=== PATIENT | male | born 1980 | race Caucasian/White ===

== ENCOUNTER → 2016-12-31 | Outpatient (CLI) | payer BC ==
[2016-12-31 14:06] LABS: BLOOD UREA NITROGEN 24 MG/DL (7-18); CREATININE FOR GFR 1.06 MG/DL (0.70-1.30); GLOMERULAR FILTRATION RATE > 60.0 (>60)
== END ==
LOC: M LAB 12:58
PROVIDERS: ATTEND Neurological Surgery
DX: Z01.818 Encounter for other preprocedural examination (principal)

== ENCOUNTER 2018-06-15 07:48 | Emergency (ER) | payer BC, OTHER ==
[2018-06-15 08:34] LABS: BASO % 0.6 % (0.0-1.0); EOS # 0.2 10^3/uL (0.0-0.50); HEMATOCRIT 46.5 % (42.0-52.0); IMMATURE GRANULOCYTE % 0.2 % (0-3.0); LYMPH # 1.5 10^3/uL (1.5-4.5); LYMPH % 28.1 % (24.0-44.0); MEAN CORPUSCULAR HEMOGLOBIN 29.7 pg (27.0-33.0); MEAN CORPUSCULAR HGB CONC 34.4 g/dl (32.0-36.5); MEAN CORPUSCULAR VOLUME 86.4 fl (80.0-96.0); MONO # 0.3 10^3/uL (0.0-0.8); MONO % 5.3 % (0.0-5.0); NEUTROPHILS # 3.3 10^3/uL (1.8-7.7); NEUTROPHILS % 62.8 % (36.0-66.0); PLATELET COUNT, AUTOMATED 189 10^3/uL (150-450); RED BLOOD COUNT 5.38 10^6/uL (4.30-6.10); RED CELL DISTRIBUTION WIDTH 11.7 % (11.5-14.5); WHITE BLOOD COUNT 5.3 10^3/uL (4.0-10.0)
[2018-06-15 08:47] LABS: INR 0.98; PARTIAL THROMBOPLASTIN TIME 24.6 SECONDS (25.4-37.6); PROTHROMBIN TIME 13.1 SECONDS (12.1-14.4)
[2018-06-15] MEDS: NS 1,000 ML IV (08:58)
[2018-06-15] MEDS: MORPHINE 4 MG/ML 1ML VIAL/SYRINGE (J2270) IV (08:59)
[2018-06-15] MEDS: ONDANSETRON 4MG/2ML VIAL (J2405) IV (08:59)
[2018-06-15 09:26] LABS: ALBUMIN 3.8 GM/DL (3.2-5.2); ALBUMIN/GLOBULIN RATIO 1.09 (1.00-1.93); ALKALINE PHOSPHATASE 78 U/L (45-117); ALT/SGPT 35 U/L (12-78); ANION GAP 7 MEQ/L (8-16); AST/SGOT 18 U/L (7-37); BILIRUBIN,DIRECT 0.1 MG/DL (0.0-0.2); BILIRUBIN,TOTAL 0.5 MG/DL (0.2-1.0); BLOOD UREA NITROGEN 25 MG/DL (7-18); CARBON DIOXIDE LEVEL 28 MEQ/L (21-32); CHLORIDE LEVEL 107 MEQ/L (98-107); CPK CREATINE PHOSPHOKINASE 79 U/L (39-308); CREATININE FOR GFR 1.01 MG/DL (0.70-1.30); FREE T4 1.29 NG/DL (0.76-1.46); GLOMERULAR FILTRATION RATE > 60.0 (>60); GLUCOSE, FASTING 95 MG/DL (70-100); LIPASE 166 U/L (73-393); MB/CK RELATIVE INDEX 1.52 (< OR =4); NT-PRO BNP 194 PG/ML (<125); POTASSIUM SERUM 4.3 MEQ/L (3.5-5.1); SODIUM LEVEL 142 MEQ/L (136-145); TOTAL PROTEIN 7.3 GM/DL (6.4-8.2); TROPONIN I < 0.02 NG/ML (< 0.10)
[2018-06-15] MEDS ORDERED: ISOVUE-370 76% 100ML VIAL (Q9967) As Ordered (09:31)
[2018-06-15 12:59] LABS: CK-MB VALUE MASS < 1.0 NG/ML (<3.6); CPK CREATINE PHOSPHOKINASE 65 U/L (39-308); MB/CK RELATIVE INDEX 1.54 (< OR =4); TROPONIN I < 0.02 NG/ML (< 0.10)
== END 2018-06-15 14:30 | disposition home or self-care (01) ==
LOC: M ED 07:48
DX: R07.9 Chest pain, unspecified (principal); R00.1 Bradycardia, unspecified; I10 Essential (primary) hypertension; M54.2 Cervicalgia; Z72.0 Tobacco use; Z79.899 Other long term (current) drug therapy; Z88.1 Allergy status to other antibiotic agents; Z88.0 Allergy status to penicillin
CPT/HCPCS: J2270

== ENCOUNTER 2018-07-10 07:26 | Emergency (ER) | payer BC ==
[2018-07-10 09:02] LABS: HEMOGLOBIN 17.4 g/dl (13.5-17.5); MEAN CORPUSCULAR HEMOGLOBIN 29.8 pg (27.0-33.0); MEAN CORPUSCULAR HGB CONC 34.8 g/dl (32.0-36.5); MEAN CORPUSCULAR VOLUME 85.6 fl (80.0-96.0); PLATELET COUNT, AUTOMATED 216 10^3/uL (150-450); RED BLOOD COUNT 5.84 10^6/uL (4.30-6.10); RED CELL DISTRIBUTION WIDTH 11.8 % (11.5-14.5); WHITE BLOOD COUNT 6.5 10^3/uL (4.0-10.0)
[2018-07-10] MEDS: METHOCARBAMOL 500 MG TAB PO (09:32)
[2018-07-10 09:33] LABS: ANION GAP 9 MEQ/L (8-16); BLOOD UREA NITROGEN 16 MG/DL (7-18); CALCIUM LEVEL 8.6 MG/DL (8.5-10.1); CARBON DIOXIDE LEVEL 27 MEQ/L (21-32); CHLORIDE LEVEL 103 MEQ/L (98-107); CREATININE FOR GFR 1.08 MG/DL (0.70-1.30); GLOMERULAR FILTRATION RATE > 60.0 (>60); GLUCOSE, FASTING 92 MG/DL (70-100); POTASSIUM SERUM 4.3 MEQ/L (3.5-5.1); SODIUM LEVEL 139 MEQ/L (136-145)
[2018-07-10 09:48] LABS: D-DIMER QUANT < 270 ng/ml (<500)
== END 2018-07-10 11:06 | disposition home or self-care (01) ==
LOC: M ED 07:26
DX: M16.12 Unilateral primary osteoarthritis, left hip (principal); M25.552 Pain in left hip; M51.36 Other intervertebral disc degeneration, lumbar region; R50.9 Fever, unspecified; I10 Essential (primary) hypertension; M50.30 Other cervical disc degeneration, unspecified cervical region; E78.5 Hyperlipidemia, unspecified; Z87.828 Personal history of other (healed) physical injury and trauma; Z88.0 Allergy status to penicillin; Z88.1 Allergy status to other antibiotic agents; Z79.899 Other long term (current) drug therapy
CPT/HCPCS: 93971

== ENCOUNTER → 2018-09-13 | Outpatient (CLI) | payer BC ==
[~2018-09-13] MED LIST: DICL1GEL TD; DICL75TA; ESCI10TA2; KLOR1CAP2; LISI10TA2; LISIPOW; OMEP20CA3; ROBA500T PO
--- NOTE | 2018-09-22 14:35 | REP ---
Clinical: Trauma. Right-sided contusion. Technique: Frontal view of the chest with multiple views of the right hemithorax. Findings: Frontal view of the chest demonstrates no acute cardiopulmonary process. Multiple views of the right hemithorax demonstrates a nondisplaced fracture involving the posterior aspect of the right ninth rib. Impression: Nondisplaced fracture involving the posterior aspect of the right ninth rib. Electronically Signed by Rivas العلي MD 09/14/2018 09:22 A
== END ==
LOC: M ADAMS 14:00
PROVIDERS: ATTEND Physician Assistant Medical
DX: S22.31XA Fracture of one rib, right side, initial encounter for closed fracture (principal); Y92.89 Other specified places as the place of occurrence of the external cause; Y93.89 Activity, other specified; Y99.8 Other external cause status; W19.XXXA Unspecified fall, initial encounter

== ENCOUNTER → 2018-09-22 | Outpatient (CLI) | payer BC | LOC: M ADAMS 09-13 14:14 | PROVIDERS: ATTEND Physician Assistant Medical | DX: S20.221A Contusion of right back wall of thorax, initial encounter (principal); W18.30XA Fall on same level, unspecified, initial encounter; Y92.009 Unspecified place in unspecified non-institutional (private) residence as the place of occurrence of the external cause ==

== ENCOUNTER → 2019-05-27 | Outpatient (CLI) | payer BC ==
[~2019-05-27] MED LIST changes: +LISI10TA15; -LISI10TA2; -OMEP20CA3; +OMEP20CA4
--- NOTE | 2019-05-27 10:29 | REP ---
Left foot series: Four views. History: Pain in the left foot. Findings: Overall mineralization pattern is normal. Joint spaces are preserved. There is no evidence of fracture, erosive change or arthropathy. Impression: Negative radiographs of the left foot. Electronically Signed by Cole Vergara MD 05/27/2019 10:20 A
== END ==
LOC: M ADAMS 08:40
PROVIDERS: ATTEND Physician Assistant
DX: M79.672 Pain in left foot (principal)

== ENCOUNTER → 2020-06-08 | Outpatient (REF) | payer BC ==
[~2020-06-08] MED LIST changes: +OMEP1CAP73; -OMEP20CA4
[2020-06-08 17:26] LABS: C REACTIVE PROTEIN QUANTITATIV < 0.30 MG/DL (0.00-0.30); RHEUMATOID FACTOR QUANT < 10.0 IU/ML (<15.0)
[2020-06-14 14:08] LABS: ANA (HEP2) Negative (.); ANTI DS-DNA AB Negative (Negative); CYCLIC CITRULLINATED PEPTIDE 7 units (0-19); HLA-B27 Negative (.); RNP ANTIBODY 0.2 AI (0.0-0.9); SMITHS ANTIBODY < 0.2 AI (0.0-0.9)
== END ==
LOC: M PLALAB 16:30 → M LAB REF 16:30
PROVIDERS: ATTEND Physician Assistant
DX: M51.16 Intervertebral disc disorders with radiculopathy, lumbar region (principal)

== ENCOUNTER 2020-08-07 07:53 | Emergency (ER) | payer BC ==
[~2020-08-07] VITALS: Ht 182.9 cm; Wt 100.0 kg
[2020-08-07] MEDS ORDERED: LISI20TA35 PO (08:12)
[2020-08-07] MEDS ORDERED: KLOR20TA42 PO (08:12)
[2020-08-07] MEDS ORDERED: MORPHINE 4 MG/ML 1ML VIAL/SYRINGE (J2270) IV ONE (08:30)
[2020-08-07] MEDS ORDERED: NS 1,000 ML IV ONE (08:30)
[2020-08-07 09:03] LABS: BASO % 0.3 % (0.0-1.0); EOS # 0.2 10^3/uL (0.0-0.5); EOS % 3.2 % (0.0-3.0); HEMATOCRIT 47.5 % (42.0-52.0); HEMOGLOBIN 15.4 g/dl (13.5-17.5); LYMPH # 1.4 10^3/uL (1.5-5.0); LYMPH % 18.8 % (24.0-44.0); MEAN CORPUSCULAR HEMOGLOBIN 28.9 pg (27.0-33.0); MEAN CORPUSCULAR HGB CONC 32.4 g/dl (32.0-36.5); MEAN CORPUSCULAR VOLUME 89.3 fl (80.0-96.0); MONO # 0.4 10^3/uL (0.0-0.8); MONO % 4.9 % (0.0-5.0); NEUTROPHILS # 5.5 10^3/uL (1.5-8.5); NEUTROPHILS % 72.5 % (36.0-66.0); PLATELET COUNT, AUTOMATED 216 10^3/uL (150-450); RED BLOOD COUNT 5.32 10^6/uL (4.30-6.10); WHITE BLOOD COUNT 7.6 10^3/uL (4.0-10.0)
[2020-08-07 09:38] LABS: ALBUMIN 3.7 GM/DL (3.2-5.2); ALT/SGPT 28 U/L (12-78); BILIRUBIN,DIRECT 0.1 MG/DL (0.0-0.2); BILIRUBIN,TOTAL 0.4 MG/DL (0.2-1.0); BLOOD UREA NITROGEN 19 MG/DL (7-18); CALCIUM LEVEL 9.1 MG/DL (8.5-10.1); CARBON DIOXIDE LEVEL 29 MEQ/L (21-32); CHLORIDE LEVEL 103 MEQ/L (98-107); CREATININE FOR GFR 1.06 MG/DL (0.70-1.30); GLOMERULAR FILTRATION RATE > 60.0 (>60); GLUCOSE, FASTING 101 MG/DL (70-100); LIPASE 378 U/L (73-393); POTASSIUM SERUM 4.7 MEQ/L (3.5-5.1); SODIUM LEVEL 138 MEQ/L (136-145); TOTAL PROTEIN 7.3 GM/DL (6.4-8.2)
[2020-08-07] MEDS ORDERED: ISOVUE-370 76% 100ML VIAL As Ordered ONE (09:45)
--- NOTE | 2020-08-07 10:14 | REP ---
INDICATION: RLQ, LLQ left flank pain x 1 week LLQ>R. COMPARISON: 09/11/2017 TECHNIQUE: Axial contrast-enhanced images from the lung bases to the pubic symphysis using 100 cc Isovue 370 intravenous contrast material. Coronal and sagittal reformations obtained. This CT examination was performed using the following dose reduction techniques: Automated exposure control, adjustment of mA and/or kv according to the patient's size, and the use of iterative reconstruction technique. FINDINGS: Lung bases are clear. Visualized heart and pericardium normal. Liver, spleen, pancreas, gallbladder, bilateral adrenal glands and kidneys are normal. The small bowel demonstrates mild prominence which may reflect an underlying enteritis. There is no evidence for bowel obstruction. Large bowel demonstrates scattered diverticula without evidence for acute diverticulitis. Normal terminal ileum, cecum and appendix are identified in the right lower quadrant. Pelvis demonstrates normal bladder and age-appropriate prostate/seminal vesicles. Small fat containing bilateral inguinal hernias are identified. No pelvic free fluid. No ascites. No free air. No intraperitoneal or retroperitoneal adenopathy. Abdominal aorta and vasculature appear normal. Musculoskeletal structures are intact and without acute osseous abnormality. IMPRESSION: 1. A mild enteritis cannot be excluded and should be correlated with physical examination. There is no associated bowel obstruction and large bowel as well as the cecum, terminal ileum and appendix appear normal.. 2. Few scattered colonic diverticula without acute diverticulitis. 3. Small fat containing inguinal hernias.. <Electronically signed by Rivas العلي > 08/07/20 [id number]
[2020-08-07 11:05] VITALS: BP 133/83
== END 2020-08-07 11:19 | disposition home or self-care (01) ==
LOC: M ED 07:53
DX: A08.4 Viral intestinal infection, unspecified (principal); I10 Essential (primary) hypertension; Z79.899 Other long term (current) drug therapy; Z88.0 Allergy status to penicillin; Z88.1 Allergy status to other antibiotic agents
CPT/HCPCS: 36415; 74177; 80048; 80076; 81001; 83690; 85025; 96361; 96374; 99284; Q9967

== ENCOUNTER 2020-10-05 13:28 | Emergency (ER) | payer BC ==
[~2020-10-05] VITALS: Ht 182.9 cm; Wt 105.7 kg
[~2020-10-05 13:28] MED LIST changes: +ESCI10TA16; -ESCI10TA2; +KLOR20TA42 PO; +LISI20TA35 PO
[2020-10-05 13:29] VITALS: BP 125/84
--- NOTE | 2020-10-05 14:39 | REP ---
INDICATION: r arm numbness; pt reports unable to move arm. COMPARISON: None. TECHNIQUE: Helical scanning is acquired and overlapping 2 mm high resolution axial images were generated and reviewed at bone and soft tissue window settings. Coronal and sagittal multiplanar re-formations images are generated. FINDINGS: There is no evidence of cervical spine element fracture. No skull base fracture is seen. Cervical vertebral body heights are preserved. Alignment is normal. Facet joints are normally aligned bilaterally at each cervical level on multiplanar re-formations images. There is no evidence of intraspinal or paraspinal hematoma. No extra vertebral abnormality is seen. There is degenerative narrowing and anterior spurring at the C5-6 disc level. Minimal spurring is seen anteriorly at C3-4. There is straightening. There is mild diffuse disc bulging at the C5-6-disc level but no spinal stenosis is seen. No bony neural foraminal narrowing is appreciated. IMPRESSION: Mild degenerative disc changes at C5-6 and to a lesser extent C3-4. Mild disc bulging diffusely C5-6. Otherwise negative.. <Electronically signed by Erlin Vergara > 10/05/20 [id number]
[2020-10-05] MEDS ORDERED: MEDR4PAK PO (15:35)
--- OUTSIDE RECORDS SUMMARY | 2020-10-05 15:48 | CCD ---
Author Author [facility] Organization [facility] Address Unknown Phone Unavailable Care Team Providers Care Route Delivery Service Driver Name Role Phone CLYDE NAN Unavailable Unavailable EsvinAntonio pedro PA Unavailable Unavailable EsvinAntonio pedro PA Unavailable Unavailable EsvinBharat pedroen PA Unavailable Unavailable Esvin, Antonio PA Unavailable Unavailable Esvin, Antonio PA Unavailable Unavailable Esvin, Antonio PA Unavailable Unavailable Esvin, Antonio PA Unavailable Unavailable Esvin, Antonio PA Unavailable Unavailable Esvin, Antonio PA Unavailable Unavailable Esvin, Antonio PA Unavailable Unavailable Esvin, Antonio PA Unavailable Unavailable Esvin, Antonio PA Unavailable Unavailable Esvin, Antonio PA Unavailable Unavailable Esvin, Antonio PA Unavailable Unavailable Esvin, Antonio PA Unavailable Unavailable Esvin, Antonio PA Unavailable Unavailable Esvin, Antonio PA Unavailable Unavailable Esvin, Antonio PA Unavailable Unavailable Esvin, Antonio PA Unavailable Unavailable Esvin, Antonio PA Unavailable Unavailable Esvin, Antonio PA Unavailable Unavailable Esvin, Antonio PA Unavailable Unavailable Esvin, Antonio PA Unavailable Unavailable Esvin, Antonio PA Unavailable Unavailable Esvin, Antonio PA Unavailable Unavailable Esvin, Antonio PA Unavailable Unavailable Esvin, Antonio PA Unavailable Unavailable Esvin, Antonio PA Unavailable Unavailable Esvin, Antonio PA Unavailable Unavailable Esvin, Antonio PA Unavailable Unavailable Esvin, Antonio PA Unavailable Unavailable Esvin, Antonio PA Unavailable Unavailable Esvin, Antonio PA Unavailable Unavailable Esvin, Antonio PA Unavailable Unavailable Esvin, Antonio PA Unavailable Unavailable Esvin, Antonio PA Unavailable Unavailable Esvin, Antonio PA Unavailable Unavailable Esvin, Antonio PA Unavailable Unavailable Esvin, Antonio PA Unavailable Unavailable Esvin, Antonio PA Unavailable Unavailable Esvin, Antonio PA Unavailable Unavailable Esvin, Antonio PA Unavailable Unavailable Esvin, Antonio PA Unavailable Unavailable Esvin, Antonio PA Unavailable Unavailable Esvin, Antonio PA Unavailable Unavailable Esvin, Antonio PA Unavailable Unavailable Esvin, Antonio PA Unavailable Unavailable Esvin, Antonio PA Unavailable Unavailable Esvin, Antonio PA Unavailable Unavailable O'vashti, A Reynaldo PA Unavailable Unavailable O'vashti, A Reynaldo PA Unavailable Unavailable O'vashti, A Reynaldo PA Unavailable Unavailable O'vashti, A Reynaldo PA Unavailable Unavailable O'vashti, A Reynaldo PA Unavailable Unavailable O'vashti, A Reynaldo PA Unavailable Unavailable O'vashti, A Reynaldo PA Unavailable Unavailable O'vashti, A Reynaldo PA Unavailable Unavailable O'vashti, A Reynaldo PA Unavailable Unavailable O'vashti, A Reynaldo PA Unavailable Unavailable O'vashti, A Reynaldo PA Unavailable Unavailable O'vashti, A Reynaldo PA Unavailable Unavailable O'vashti, A Reynaldo PA Unavailable Unavailable O'vashti, A Reynaldo PA Unavailable Unavailable O'vashti, A Reynaldo PA Unavailable Unavailable O'vashti, A Reynaldo PA Unavailable Unavailable O'vashti, A Reynaldo PA Unavailable Unavailable O'vashti, A Reynaldo PA Unavailable Unavailable O'vashti, A Reynaldo PA Unavailable Unavailable O'vashti, A Reynaldo PA Unavailable Unavailable O'vashti, A Reynaldo PA Unavailable Unavailable O'vashti, A Reynaldo PA Unavailable Unavailable O'vashti, A Reynaldo PA Unavailable Unavailable O'vashti, A Reynaldo PA Unavailable Unavailable O'vashti, A Reynaldo PA Unavailable Unavailable O'vashti, A Reynaldo PA Unavailable Unavailable O'vashti, A Reynaldo PA Unavailable Unavailable O'vashti, A Reynaldo PA Unavailable Unavailable O'vashti, A Reynaldo PA Unavailable Unavailable O'vashti, A Reynaldo PA Unavailable Unavailable O'vashti, A Reynaldo PA Unavailable Unavailable O'vashti, A Reynaldo PA Unavailable Unavailable O'vashti, A Reynaldo PA Unavailable Unavailable Re-disclosure Warning The records that you are about to access may contain information from federally-assisted alcohol or drug abuse programs. If such information is present, then the following federally mandated warning applies: This information has been disclosed to you from records protected by federal confidentiality rules (42 CFR part 2). The federal rules prohibit you from making any further disclosure of this information unless further disclosure is expressly permitted by the written consent of the person to whom it pertains or as otherwise permitted by 42 CFR part 2. A general authorization for the release of medical or other information is NOT sufficient for this purpose. The Federal rules restrict any use of the information to criminally investigate or prosecute any alcohol or drug abuse patient.The records that you are about to access may contain highly sensitive health information, the redisclosure of which is protected by Article 27-F of the [facility] Public Health law. If you continue you may have access to information: Regarding HIV / AIDS; Provided by facilities licensed or operated by the [facility] Office of Mental Health; or Provided by the [facility] Office for People With Developmental Disabilities. If such information is present, then the following [facility] mandated warning applies: This information has been disclosed to you from confidential records which are protected by state law. State law prohibits you from making any further disclosure of this information without the specific written consent of the person to whom it pertains, or as otherwise permitted by law. Any unauthorized further disclosure in violation of state law may result in a fine or residential sentence or both. A general authorization for the release of medical or other information is NOT sufficient authorization for further disc losure. Family History Family Member Name Family Member Gender Family Member Status Date o f Status Description Data Source(s) Unknown Unknown Problem [facility] ([facility]) Encounters Encounter Providers Location Date Indications Data Source(s ) Outpatient Attender: Antonio SOTO [facility] 06/08/2020 09:40:00 AM EDT [facility] ([facility]) Outpatient Attender: NAN TANG 05/23/2020 04:34:00 PM E [facility] Outpatient Attender: NAN TANG 05/09/2020 03:53:00 PM E [facility] Outpatient Attender: NAN CLYDE 04/25/2020 04:20:00 PM E [facility] Outpatient Attender: NAN CLYDE 04/13/2020 04:07:00 PM E [facility] Outpatient Attender: NAN CLYDE 04/11/2020 04:00:00 PM E [facility] Outpatient Attender: NAN CLYDE 03/28/2020 04:10:00 PM E [facility] Outpatient Attender: NAN CLYDE 03/07/2020 04:23:00 PM E [facility] Outpatient Attender: NAN CLYDE 02/21/2020 03:00:00 PM E [facility] Outpatient Attender: Reynaldo SOTO [facility] 12/22/2019 10:40:00 AM EDT [facility] ([facility]) Medications Medication Brand Name Start Date Product Form Dose Route Admi nistrative Instructions Pharmacy Instructions Status Indications Reaction Description Data Source(s) 4 mg 06/08/2020 12:00:00 AM EDT tablets,dose pack 21 TAKE DIRECTED TAKE DIRECTED SOLD: 06/08/2020 [facility] Injection Ketorolac Tromethamine Per 15 MG (Toradol) 06/08/2020 12:00:00 AM EDT completed [facility] ([facility]) Medication administered onsite gabapentin 300 MG Oral Capsule Gabapentin 06/08/2020 12:00:00 AM EDT ORAL active [facility] ([facility]) 300 mg 06/08/2020 12:00:00 AM EDT capsule 60 TAKE ONE CAPSULE BY MOUTH THREE TIMES A DAY NEEDED TAKE ONE CAPSULE BY MOUTH THREE TIMES A DAY NEEDED SOLD: 06/08/2020 [facility] Methocarbamol 750 MG Oral Tablet Methocarbamol 06/08/2020 12:00:00 AM EDT ORAL active [facility] ([facility]) Medrol Medrol 06/08/2020 12:00:00 AM EDT active [facility] ([facility]) 750 mg 06/08/2020 12:00:00 AM EDT tablet 30 TAKE ONE TABLET BY MOUTH AT BEDTIME NEEDED TAKE ONE TABLET BY MOUTH AT BEDTIME NEEDED SOLD: [facility] Diclofenac Sodium 75 MG Delayed Release Oral Tablet DICLOFEN AC SODIUM 06/06/2020 12:00:00 AM EDT tablet,delayed release (DR/EC) 90 T BLANCHE ONE TABLET BY MOUTH EVERY DAY NEEDED TAKE ONE TABLET BY MOUTH EVERY DAY NEEDED SOLD: 06/07/2020 [facility] 75 mg 03/25/2020 12:00:00 AM EDT tablet,delayed release (DR/EC) 30 TAKE ONE TABLET BY MOUTH EVERY DAY NEEDED TAKE ONE TABLET BY MOUTH EVERY DAY NE EDED SOLD: 03/26/2020 [facility] Escitalopram 10 MG Oral Tablet ESCITALOPRAM OXALATE 02/09/2020 1 2:00:00 AM EDT tablet 90 TAKE ONE TABLET BY MOUTH EVERY D AY TAKE ONE TABLET BY MOUTH EVERY DAY SOLD: 02/09/2020 [facility] Hydrochlorothiazide 12.5 MG / Lisinopril 20 MG Oral Ta blet Lisinopril-Hydrochlorothiazide 08/24/2019 12:00:00 AM EST active [facility] ([facility]) Insurance Providers Payer name Policy type / Coverage type Policy ID Covered libertarian ID Covered libertarian's relationship to stallworth Policy [place] Plan Information [place] P[place] 302/307 [id number] EXCELLUS BCBS B [id number] P VYS [id number] BCBS [place] [id number] SPO VYS [id number] BCBS/Excellus Commercial [id number] Family Dependent [id number] BCBS/Excellus Commercial [id number] Family Dependent [id number] EXCELLUS H [id number] Spouse [id number] AETNA U [id number] Self [id number] Aetna Medigap Part B [id number] Self [id number] [facility] U/W Commercial [id number] Self [id number] Excell[employer] U/W Commercial [id number] Family Depen dent [id number] [place] PPO 302/307 [id number] SP [id number] AETNA [place] HEALTH[place]ARE [place] [id number] SP [id number] Aetna Medigap Part B [id number] Self [id number] [employer] U/W Commercial [id number] Self [id number] Aetna Medigap Part B [id number] Self [id number] [employer] U/W Commercial [id number] Self [id number] Aetna Commercial [id number] Self [id number] AETNA (HMO/PPO/POS/GPPO - MANAGED CARE [id number] 0 [id number] AETNA US HEALTHCARE [place] O [id number] O [id number] Aetna Medigap Part B [id number] Self [id number] [employer] U/W Commercial [id number] Self [id number] [employer] U/W Commercial [id number] Self [id number] AETNA HEALTHCARE [place] [id number] SP [id number] [place] PPO 302/307 [id number] SP [id number] [employer] U/W Commercial [id number] Self [id number] EXCELLUS BCBS B [id number] S [id number] [employer] U/W Commercial [id number] Self [id number] [employer] U/W Commercial [id number] Self [id number] BCBS [place] PPO 302/307 [id number] SP [id number] Excell[employer] BCBS Health Maintenance Organization (HMO) [id number] Self [id number] [employer] U/W Commercial [id number] Self [id number] [employer] U/W Commercial Self SELF PAY ONLY UNAVAILABLE SP UNAV AILABLE [employer] COMMUNITY PLAN [id number] SP [id number] [facility] O [id number] S [id number] [employer] Commercial Self Workers Compensation Workers Compensation Self SELF PAY UNAVAILABLE SP UNAVAILA BLE BCBS [place] PPO 302/307 [id number] SP [id number] Problems, Conditions, and Diagnoses Code Display Name Description Problem Type Effective Dates Data Source(s) F43.10 Post-traumatic stress disorder, unspecif ied POST-TRAUMATIC STRESS DISORDER, UNSPECIFIED Diagnosis 05/23/2020 04:34:00 PM EDT [facility] Z53.29 Procedure and treatment not carried out because of patient's decision for other reasons PROC/TRTMT NOT CRD OUT BEC PT DECISION FOR OTH REASONS Diagn osis 05/09/2020 03:53:00 PM EDT [facility] Results ID Date Data Source [id number] 06/08/2020 11:10:00 AM EDT [facility] ([facility]) Name Value Range Interpretation Code Description Data Pat rce(s) Supporting Document(s) HLA-B27 related Ag [Presence] Laboratory test result Normal (applies to non- numeric results) [facility]) HLA-B*27 Negative B27 allele interpretation for all loci based on IMGT/HLA database version 3.38 This test was developed and its performance characteristics determined by [facility]. It has not been cleared or approved by the Food and Drug Administration. [facility] CLIA ID Number [id number] . This test was performed using PCR (Polymerase Chain Reaction)/SSOP (Sequence Specific Oligonucleotide Probes) technique. SBT (Sequence Based Typing) and/or SSP (Sequence Specific Primers) may be used as supplemental methods when necessary. Please contact [facility] Customer Service at if you have any questions. . Director of HLA Laboratory Dr Kurt Pichardo, PhD ID Date Data Source [id number] 06/08/2020 11:10:00 AM EDT [facility] ([facility]) Name Value Range Interpretation Code Description Data Pat rce(s) Supporting Document(s) ASTRONOMY TEACHER Antibody 0.2 AI 0.0-0.9 Normal (applies to non-numeric res ults) [facility] ([facility]) Smiths Antibody Laboratory test result 0.0-0.9 Normal (a pplies to non-numeric results) [facility] ([facility]) ID Date Data Source [id number] 06/08/2020 11:10:00 AM EDT [facility] ([facility]) Name Value Range Interpretation Code Description Data Pat rce(s) Supporting Document(s) Kassandra (Hep2) Laboratory test result Normal (applies to non-n umeric results) [facility] ([facility]) <content>Negative <1:80</content>
<content>Borderline 1:80</content>
<content>Positive >1:80</content>
<content>Performed at: [facility]</content>
<content>[address], [place] [id number]</content>
<content>Armature Rewinder: India Yeung MD, Phone: [phone]</content>
<content>Performed at: [address] [place] [address] [facility]</content>
<content>[address], [place] [id number]</content>
<content>Armature Rewinder: Kurt Pichardo PhD, Phone: [phone]</content>
<content>Performed at: [facility]</content>
<content>[address], [place] [id number]</content>
<content>Armature Rewinder: Ana Mahajan MD, Phone: [phone]</content>
<content></content> ID Date Data Source [id number] 06/08/2020 11:10:00 AM EDT [facility] ([facility]) Name Value Range Interpretation Code Description Data Pat rce(s) Supporting Document(s) Laboratory test finding (navigational concept) Laboratory test r esult Normal (applies to non-numeric results) [facility]) ID Date Data Source [id number] 06/08/2020 11:10:00 AM EDT [facility] ([facility]) Name Value Range Interpretation Code Description Data Pat rce(s) Supporting Document(s) Rheumatoid factor [Units/volume] in Serum or Plasma Laboratory t est result Normal (applies to non-numeric results) [facility] ([facility]) Cyclic citrullinated peptide IgG Ab [Units/volume] in Serum or Plasma 7 units 0-19 Normal (applies to non-numeric results) [facility] ([facility]) <content>Negative <20</con tent>
<content>Weak positive 20 - 39</content>
<content>Moderate positive 40 - 59</content>
<content>Strong positive >59</content>
<content></content> C reactive protein [Mass/volume] in Serum or Plasma by High sensitivity method Laboratory test result 0.00-0.30 Normal (applies to non-numeric results) [facility] ([facility]) Erythrocyte sedimentation rate by Westergren method 1 mm/hr 0-15 Normal (applies to non-numeric results) [facility] ([facility]) Procedure Social History Code Duration Value Status Description Data Source(s ) Smoking 08/24/2019 12:00:00 AM EST Quit completed Quit [facility]) Vital Signs ID Date Data Source UNK Name Value Range Interpretation Code Description Data Source(s) [place] body weight 172 [lb_av] 172 [lb_av] [facility] ([facility]) Oxygen saturation in Arterial blood by Pulse oximetry 99 % 99 % [facility] ([facility]) Body temperature 98.8 [degF] 98.8 [degF] [facility] ([facility]) Respiratory rate 18 /min 18 /min [facility] ( [facility]) Heart rate 97 /min 97 /min [facility] ([facility]) Body mass index (BMI) [Ratio] 30.9 kg/m2 30.9 k g/m2 [facility] ([facility]) Body weight 226.38 [lb_av] 226.38 [lb_av] [facility] ([facility]) Body height 71.8 [in_i] 71.8 [in_i] [facility] ([facility]) 5'11.80" Diastolic blood pressure 90 mm[Hg] 90 mm[Hg] [facility] ([facility]) Systolic blood pressure 142 mm[Hg] 142 mm[Hg] [facility] ([facility]) [place] body weight 172 [lb_av] 172 [lb_av] [facility] ([facility]) Oxygen saturation in Arterial blood by Pulse oximetry 99 % 99 % [facility] ([facility]) Body temperature 98.8 [degF] 98.8 [degF] [facility] ([facility]) Respiratory rate 18 /min 18 /min [facility] ( [facility]) Heart rate 88 /min 88 /min [facility] ([facility]) Body mass index (BMI) [Ratio] 31.9 kg/m2 31.9 k g/m2 [facility] ([facility]) Body weight 234.00 [lb_av] 234.00 [lb_av] [facility] ([facility]) Body height 71.8 [in_i] 71.8 [in_i] [facility] ([facility]) 5'.80" Diastolic blood pressure 78 mm[Hg] 78 mm[Hg] [facility] ([facility]) Systolic blood pressure 142 mm[Hg] 142 mm[Hg] [facility] ([facility]) Oxygen saturation in Arterial blood by Pulse oximetry 97 % 97 % [facility] ([facility]) Body temperature 97.4 [degF] 97.4 [degF] [facility] ([facility]) Respiratory rate 16 /min 16 /min [facility] ( [facility]) Heart rate 90 /min 90 /min [facility] ([facility]) Body mass index (BMI) [Ratio] 31.4 kg/m2 31.4 k g/m2 [facility] ([facility]) Body weight 230.00 [lb_av] 230.00 [lb_av] [facility] ([facility]) Body height 71.8 [in_i] 71.8 [in_i] [facility] ([facility]) 5'11.80" Diastolic blood pressure 88 mm[Hg] 88 mm[Hg] [facility] ([facility]) Systolic blood pressure 140 mm[Hg] 140 mm[Hg] [facility] ([facility])
[2020-10-05] MEDS ORDERED: KETOROLAC 30 MG/ML 1ML VIAL IM ONE (16:15)
== END 2020-10-05 16:25 | disposition home or self-care (01) ==
LOC: M ED 13:28
DX: M50.30 Other cervical disc degeneration, unspecified cervical region (principal); M50.20 Other cervical disc displacement, unspecified cervical region; I10 Essential (primary) hypertension; Z79.899 Other long term (current) drug therapy; Z88.0 Allergy status to penicillin; Z88.1 Allergy status to other antibiotic agents
CPT/HCPCS: 72125; 96372; 99282; J1885

== ENCOUNTER → 2020-10-25 | Outpatient (CLI) | payer BC ==
[~2020-10-25] MED LIST changes: +MEDR4PAK PO; +PROHANCE 279.3MG/ML 15ML VIAL As Ordered ONE; +PROHANCE 279.3MG/ML 5ML VIAL As Ordered ONE
--- NOTE | 2020-10-25 16:54 | REP ---
INDICATION: SPONDYLOTHESIA CERVERICAL REGION. Neck pain. COMPARISON: Comparison CT study of the cervical spine is from October 05, 2020.. TECHNIQUE: Sagittal and axial T1 and T2-weighted scans are acquired in the usual fashion with and without fat saturation. Sequences include spin echo, turbo spin-echo, and STIR imaging sequences. 20 mL of intravenous ProHance is administered and axial and coronal post gadolinium enhanced images are acquired. FINDINGS: There is straightening and slight reversal of the normal cervical lordosis. Cervical vertebral body heights are preserved. Alignment is otherwise normal. No extra vertebral abnormality is observed. There is a focal T2 hyperintense lesion in the upper cervical cord just below the spinal medullary junction at the level of the dens. This measures approximately 6 mm in craniocaudal span on T2 weighted scans. No abnormal T1 signal intensity is seen on precontrast images here. However, there is contrast enhancement within the substance of the cord at the level of this lesion on postcontrast images. No other intramedullary cord lesion is appreciated. Axial and sagittal images taken at C2-3 show no evidence of disc protrusion or spinal stenosis. No foraminal narrowing is seen. The C3-4 level is unremarkable as well. At C4-5, there is mild anterior disc space bulging. There is degenerative narrowing of the 4 5 disc which is mild. No thecal sac compression is seen. No nerve root compression is seen. At C5-6, there is degenerative disc disease. Broad-based central focal disc protrusion is seen effacing the ventral subarachnoid space at C5-6 and indenting the ventral margin of the cord. There is minimal uncovertebral spurring bilaterally at C5-6. At C6-7 there is no disc protrusion or other significant abnormality. The C7-T1 level is unremarkable. IMPRESSION: There is an intramedullary cord lesion 6 mm in greatest diameter centrally in the upper cervical cord at the level of the tip of the dens, near the spinal medullary junction. This shows contrast enhancement and T2 hyperintensity. It is compatible with a demyelinating focus or other myelopathies. There are degenerative disc changes at C5-6 with a broad-based small central disc protrusion at C5-6. Recommend MRI study of the brain without and with IV gadolinium. <Electronically signed by Erlin Vergara > 10/25/20 [id number]
== END ==
LOC: M RAD 15:09
PROVIDERS: ATTEND Neurological Surgery
DX: M47.812 Spondylosis without myelopathy or radiculopathy, cervical region (principal)
CPT/HCPCS: 72156; A9576

== ENCOUNTER → 2020-12-05 | Outpatient (CLI) | payer BC ==
[~2020-12-05] MED LIST changes: -PROHANCE 279.3MG/ML 15ML VIAL As Ordered ONE; -PROHANCE 279.3MG/ML 5ML VIAL As Ordered ONE
[2020-12-05 13:56] LABS: BASO % 0.7 % (0.0-1.0); EOS # 0.2 10^3/uL (0.0-0.5); EOS % 4.1 % (0.0-3.0); HEMATOCRIT 47.9 % (42.0-52.0); HEMOGLOBIN 16.4 g/dl (13.5-17.5); LYMPH # 1.5 10^3/uL (1.5-5.0); LYMPH % 26.2 % (24.0-44.0); MEAN CORPUSCULAR HEMOGLOBIN 29.8 pg (27.0-33.0); MEAN CORPUSCULAR HGB CONC 34.2 g/dl (32.0-36.5); MEAN CORPUSCULAR VOLUME 86.9 fl (80.0-96.0); MONO # 0.3 10^3/uL (0.0-0.8); MONO % 5.5 % (2.0-8.0); NEUTROPHILS # 3.7 10^3/uL (1.5-8.5); NEUTROPHILS % 63.3 % (36.0-66.0); PLATELET COUNT, AUTOMATED 218 10^3/uL (150-450); RED BLOOD COUNT 5.51 10^6/uL (4.30-6.10); WHITE BLOOD COUNT 5.9 10^3/uL (4.0-10.0)
[2020-12-05 13:57] LABS: APPEARANCE, URINE CLEAR (CLEAR); BACTERIA, URINE AUTO NEGATIVE (NEGATIVE); BILIRUBIN, URINE AUTO NEGATIVE (NEGATIVE); BLOOD, URINE BLOOD NEGATIVE (NEGATIVE); COLOR, URINE YELLOW (YELLOW); GLUCOSE, URINE (UA) AUTO NEGATIVE (NEGATIVE); KETONE, URINE AUTO NEGATIVE (NEGATIVE); LEUKOCYTE ESTERASE, URINE AUTO NEGATIVE (NEGATIVE); MUCUS, URINE SMALL (NEGATIVE); NITRITE, URINE AUTO NEGATIVE (NEGATIVE); PROTEIN, URINE AUTO NEGATIVE (NEGATIVE); RBC, URINE AUTO 1 /HPF (0-3); SPECIFIC GRAVITY URINE AUTO 1.017 (1.002-1.035); SQUAMOUS EPITHELIAL CELL UR AU 0 /HPF (0-6); UROBILINOGEN, URINE AUTO 0.2 mg/dL (0.0-2.0); WBC, URINE AUTO 0 /HPF (0-3)
[2020-12-05 14:07] LABS: INR 0.96; PROTHROMBIN TIME 12.9 SECONDS (12.5-14.3)
[2020-12-05 14:08] LABS: PARTIAL THROMBOPLASTIN TIME 24.3 SECONDS (24.2-38.5)
[2020-12-05 14:29] LABS: ALT/SGPT 32 U/L (12-78); BILIRUBIN,TOTAL 0.5 MG/DL (0.2-1.0); BLOOD UREA NITROGEN 19 MG/DL (7-18); CALCIUM LEVEL 9.5 MG/DL (8.5-10.1); CARBON DIOXIDE LEVEL 32 MEQ/L (21-32); CHLORIDE LEVEL 103 MEQ/L (98-107); CREATININE FOR GFR 0.83 MG/DL (0.70-1.30); GLOMERULAR FILTRATION RATE > 60.0 (>60); GLUCOSE, FASTING 107 MG/DL (70-100); SODIUM LEVEL 140 MEQ/L (136-145); TOTAL PROTEIN 7.6 GM/DL (6.4-8.2)
== END ==
LOC: M LAB 12:28
PROVIDERS: ATTEND Physician Assistant
DX: Z01.812 Encounter for preprocedural laboratory examination (principal)

== ENCOUNTER → 2021-01-18 | Outpatient (CLI) | payer BC ==
--- NOTE | 2021-01-18 13:31 | REP ---
INDICATION: CERVICAL SPONDYLOSIS. COMPARISON: MRI 10/25/2020. TECHNIQUE: Five AP and lateral views cervical spine. FINDINGS: Cervical vertebral bodies are normal in height and well aligned with straightening of normal cervical lordosis. There is no prevertebral soft tissue swelling. There is evidence of anterior cervical discectomy and fusion at the C5-6 level since the prior MRI exam. Other disc spaces are normal in thickness. The tip of the dens is not seen on the a diet weight view. IMPRESSION: Cervical vertebral bodies well aligned, status post anterior cervical discectomy and fusion at C5-6 level. <Electronically signed by Tima Page > 01/18/21 [id number]
== END ==
LOC: M ADAMS 13:05
PROVIDERS: ATTEND Neurological Surgery
DX: Z98.1 Arthrodesis status (principal); M47.812 Spondylosis without myelopathy or radiculopathy, cervical region

== ENCOUNTER 2021-05-31 11:58 | Emergency (ER) | payer BC ==
[~2021-05-31] VITALS: Ht 182.9 cm; Wt 109.1 kg
[~2021-05-31 11:58] MED LIST changes: -KLOR20TA42 PO; +POTA-141 PO
--- OUTSIDE RECORDS SUMMARY | 2021-05-31 12:05 | CCD | Continuity of Care Document ---
Author Author [facility] Organization Unknown Address [address] [place] [address] [place] [address] Phone [phone] Care Team Providers Care Marketing Assistant Manager Name Role Phone Delfina Iraheta DO AUTM [phone] Problems Description No Information Available Social History Type Date Description Comments Sex Unknown ETOH Use Occasionally consumes alcohol Tobacco Use Start: Unknown Patient has never smoked Tobacco Use Start: Unknown The Patient Has Never Vaped Smoking Status Reviewed: 05/25/21 The Patient Has Never Vaped Allergies, Adverse Reactions, Alerts Active Allergies Criticality Reaction | Severity Comments Date Penicillin Unable to assess criticality 02/11/2018 Azithromycin Unable to assess criticality 02/11/2018 Medications Active Medications SIG Qnty Indications Ordering Provide r Date Benzonatate 200mg Capsules 1 tab by mouth q8 hours as needed for cough 15caps R05.9 Mark Munoz JR., M.D. 05/24/2021 Lisinopril-Hydrochlorothiazide 10-12.5mg Tablets Delfina Iraheta,DO 0 Diclofenac Sodium 75mg Tablets DR take one tablet by mouth every day 30tabs Mark Munoz JR., M.D. Potassium Chloride ER 10Meq Capsules ER Delfina Iraheta,DO Escitalopram Oxalate 10mg Tablets Take One Tablet By Mouth Every Day Unknown Mucinex DM 30-600mg Tablets ER 12H R take one in the morning and one at night for cough Un known Ibuprofen 200 200mg Tablets 3 this am Unknown History Medications Valacyclovir HCL 1gm Tablets 1 tablet three times a day for 10 days 30tabs B02.9 Mark Munoz JR., M.D. 12/01/2020 - 12/11/2020 Immunizations Description No Information Available Vital Signs Date Vital Result Comment 05/25/2021 11:00am BP Systolic 124 mmHg BP Diastolic 79 mmHg Heart Rate 104 /min Respiratory Rate 18 /min O2 % BldC Oximetry 98 % Body Temperature 98.2 F Weight 240.00 lb Height 72 inches 6'0" BMI (Body Mass Index) 32.5 kg/m2 Pain Level 4 05/24/2021 8:22am BP Systolic 115 mmHg BP Diastolic 76 mmHg Heart Rate 75 /min Respiratory Rate 16 /min O2 % BldC Oximetry 98 % Body Temperature 98.1 F Weight 240.00 lb Height 72 inches 6'0" BMI (Body Mass Index) 32.5 kg/m2 Pain Level 0 Results Description No Information Available Procedures Date Code Description Status 05/24/2021 00601 Office/Outpatient Established Lo w MDM 20-29 Min Completed 12/01/2020 51964 Office/Outpatient Established Lo w MDM 20-29 Min Completed Medical Devices Description No Information Available Encounters Type Date Location Provider Dx Diagnosis Office Visit 05/24/2021 8:10a Main Office BRITTANY Sewell R05.9 Cough, unspecified R50.9 Fever, unspecified Z20.828 Contact w and exposure to ot h viral communicable diseases Office Visit 12/01/2020 11:30a Main Office Selam Medina NP B02. 9 Zoster without complications Assessments Date Code Description Provider 05/24/2021 R05.9 Cough, unspecified BRITTANY Lee 05/24/2021 R50.9 Fever, unspecified Virginie BRITTANY Brooks 05/24/2021 Z20.828 Contact with and (tolentino spected) exposure to other viral communicable diseases BRITTANY Sewell 12/01/2020 B02.9 Zoster without complications Elaine Medina NP Plan of Treatment No Information Available Functional Status Description No Information Available Mental Status Description No Information Available Referrals Description No Information Available
--- OUTSIDE RECORDS SUMMARY | 2021-05-31 12:05 | CCD | Continuity of Care Document ---
Author Author [facility] Organization Unknown Address [address] [place] [address] [place] [address] Phone [phone] Care Team Providers Care Avionics Safety Inspector Name Role Phone Delfina Irahtea DO AUTM [phone] Problems Description No Information Available Social History [...] Information Available Procedures Date Code Description Status 05/25/2021 52705 Office/Outpatient Established Lo w MDM 20-29 Min Completed 05/24/2021 38208 Office/Outpatient Established Lo w MDM 20-29 Min Completed 12/01/2020 42318 Office/Outpatient Established Lo w MDM 20-29 Min Completed Medical Devices Description No Information Available Encounters Type Date Location Provider Dx Diagnosis Office Visit 05/25/2021 9:35a Main Office BRITTANY Ji JR J 06.9 Acute upper respiratory infection, unspecified U07.1 Covid-19 Office Visit 05/24/2021 8:10a Main Office BRITTANY Sewell R05.9 Cough, unspecified R50.9 Fever, unspecified Z20.828 Contact w and exposure to ot h viral communicable diseases Office Visit 12/01/2020 11:30a Main Office Selam Medina NP B02. 9 Zoster without complications Assessments Date Code Description Provider 05/25/2021 J06.9 Acute upper respiratory infectio n, unspecified BRITTANY Ji JR 05/25/2021 U07.1 Covid-19 BRITTANY Dumont JR 05/24/2021 R05.9 Cough, unspecified BRITTANY Lee 05/24/2021 R50.9 Fever, unspecified VirginieBRITTANY Guzman 05/24/2021 Z20.828 Contact with and (tolentino spected) exposure to other viral communicable diseases BRITTANY Sewell 12/01/2020 B02.9 Zoster without complications Elaine Medina NP Plan of Treatment No Information Available Functional Status Description No Information Available Mental Status Description No Information Available Referrals Description No Information Available
--- OUTSIDE RECORDS SUMMARY | 2021-05-31 12:05 | CCD | Continuity of Care Document ---
Author Author [facility] Organization Unknown Address [address] [place] [address] [place] [address] Phone [phone] Care Team Providers Care Electrical Solderer Name Role Phone Delfina Iraheta DO AUTM [phone] Problems Description No Information Available Social History Type Date Description Comments Sex Unknown ETOH Use Occasionally consumes alcohol Tobacco Use Start: Unknown Patient has never smoked Tobacco Use Start: Unknown The Patient Has Never Vaped Smoking Status Reviewed: 05/24/21 The Patient Has Never Vaped Allergies, Adverse [...] Available Vital Signs Date Vital Result Comment 05/24/2021 8:22am BP Systolic 115 mmHg BP Diastolic 76 mmHg Heart Rate 75 /min Respiratory Rate 16 /min O2 % BldC Oximetry 98 % Body Temperature 98.1 F Weight 240.00 lb Height 72 inches 6'0" BMI (Body Mass Index) 32.5 kg/m2 Pain Level 0 12/01/2020 11:16am BP Systolic 128 mmHg BP Diastolic 90 mmHg Heart Rate 123 /min Respiratory Rate 18 /min O2 % BldC Oximetry 98 % Body Temperature 97.1 F Weight 235.00 lb Height 72 inches 6'0" BMI (Body Mass Index) 31.9 kg/m2 Pain Level 2 Results Description No Information Available Procedures Date Code Description Status 05/24/2021 42647 Office/Outpatient Established Lo w MDM 20-29 Min Completed 12/01/2020 57193 Office/Outpatient Established Lo w MDM 20-29 Min [...] BRITTANY Lee 05/24/2021 R50.9 Fever, unspecified Virginie KBRITTANY Singer 05/24/2021 Z20.828 Contact with and (tolentino spected) exposure to other viral communicable diseases BRITTANY Sewell 12/01/2020 B02.9 Zoster without complications Elaine Medina NP Plan of Treatment No Information Available Functional Status Description No Information Available Mental Status Description No Information Available Referrals Description No Information Available
--- OUTSIDE RECORDS SUMMARY | 2021-05-31 12:06 | CCD ---
Author Author [facility] Organization [facility] Address Unknown Phone Unavailable Care Team Providers Care Brain Wave Technician Name Role Phone Selam Medina BOTTLE BLOWING MACHINE TENDER Unavailable Unavailable Medina Selam BOTTLE BLOWING MACHINE TENDER Unavailable Unavailable Medina Selam BOTTLE BLOWING MACHINE TENDER Unavailable Unavailable Medina, Selam BOTTLE BLOWING MACHINE TENDER Unavailable Unavailable Medina, Selam BOTTLE BLOWING MACHINE TENDER Unavailable Unavailable Medina, Selam BOTTLE BLOWING MACHINE TENDER Unavailable Unavailable Medina, Selam BOTTLE BLOWING MACHINE TENDER Unavailable Unavailable Medina, Selam BOTTLE BLOWING MACHINE TENDER Unavailable Unavailable Medina, Selam BOTTLE BLOWING MACHINE TENDER Unavailable Unavailable Medina, Selam BOTTLE BLOWING MACHINE TENDER Unavailable Unavailable Medina, Selam BOTTLE BLOWING MACHINE TENDER Unavailable Unavailable Medina, Selam BOTTLE BLOWING MACHINE TENDER Unavailable Unavailable Medina, Selam BOTTLE BLOWING MACHINE TENDER Unavailable Unavailable DENNANCY, NAN Unavailable Unavailable PICKERAL JR, J ARACELY PA-C Unavailable Unavailable PICKERAL JR, J ARACELY PA-C Unavailable Unavailable PICKERAL JR, J ARACELY PA-C Unavailable Unavailable PICKERAL JR, J ARACELY PA-C Unavailable Unavailable PICKERAL JR, J ARACELY PA-C Unavailable Unavailable PICKERAL JR, J ARACEYL PA-C Unavailable Unavailable PICKERAL JR, J ARACELY PA-C Unavailable Unavailable PICKERAL JR, J ARACELY PA-C Unavailable Unavailable PICKERAL JR, J ARACELY PA-C Unavailable Unavailable PICKERAL JR, J ARACELY PA-C Unavailable Unavailable PICKERAL JR, J ARACELY PA-C Unavailable Unavailable PICKERAL JR, J ARACELY PA-C Unavailable Unavailable PICKERAL JR, J ARACELY PA-C Unavailable Unavailable PICKERAL JR, J ARACELY PA-C Unavailable Unavailable PICKERAL JR, J ARACELY PA-C Unavailable Unavailable PICKERAL JR, J ARACELY PA-C Unavailable Unavailable PICKERAL JR, J ARACELY PA-C Unavailable Unavailable PICKERAL JR, J ARACELY PA-C Unavailable Unavailable PICKERAL JR, J ARACELY PA-C Unavailable Unavailable PICKERAL JR, J ARACELY PA-C Unavailable Unavailable PICKERAL JR, J ARACELY PA-C Unavailable Unavailable PICKERAL JR, J ARACELY PA-C Unavailable Unavailable PICKERAL JR, J ARACELY PA-C Unavailable Unavailable PICKERAL JR, J ARACELY PA-C Unavailable Unavailable PICKERAL JR, J ARACELY PA-C Unavailable Unavailable PICKERAL JR, J ARACELY PA-C Unavailable Unavailable PICKERAL JR, J ARACELY PA-C Unavailable Unavailable Esvin, Antonio PA Unavailable Unavailable [...] Unavailable Unavailable Esvin, Antonio PA Unavailable Unavailable Freeman, A Janes MD Unavailable Unavailable Freeman, A Janes MD Unavailable Unavailable Freeman, A Janes MD Unavailable Unavailable Freeman, A Janes MD Unavailable Unavailable Freeman, A Janes MD Unavailable Unavailable Freeman, A Janes MD Unavailable Unavailable Freeman, A Janes MD Unavailable Unavailable Freeman, A Janes MD Unavailable Unavailable Freeman, A Janes MD Unavailable Unavailable Freeman, A Janes MD Unavailable Unavailable Freeman, A Janes MD Unavailable Unavailable Freeman, A Janes MD Unavailable Unavailable Freeman, A Janes MD Unavailable Unavailable Freeman, A Janes MD Unavailable Unavailable Freeman, A Janes MD Unavailable Unavailable Freeman, A Janes MD Unavailable Unavailable Freeman, A Janes MD Unavailable Unavailable Freeman, A Janes MD Unavailable Unavailable Freeman, A Janes MD Unavailable Unavailable Freeman, A Janes MD Unavailable Unavailable Freeman, A Janes MD Unavailable Unavailable Freeman, A Janes MD Unavailable Unavailable Freeman, A Janes MD Unavailable Unavailable Freeman, A Janes MD Unavailable Unavailable Freeman, A Janes MD Unavailable Unavailable Freeman, A Janes MD Unavailable Unavailable Freeman, A Janes MD Unavailable Unavailable Freeman, A Janes MD Unavailable Unavailable Freeman, A Janes MD Unavailable Unavailable Freeman, A Janes MD Unavailable Unavailable Freeman, A Janes MD Unavailable Unavailable Freeman, A Janes MD Unavailable Unavailable Freeman, A Janes MD Unavailable Unavailable Freeman, A Janes MD Unavailable Unavailable Freeman, A Janes MD Unavailable Unavailable Freeman, A Janes MD Unavailable Unavailable Freeman, A Janes MD Unavailable Unavailable Freeman, A Janes MD Unavailable Unavailable Freeman, A Janes MD Unavailable Unavailable Freeman, A Janes MD Unavailable Unavailable Freeman, A Janes MD Unavailable Unavailable Freeman, A Janes MD Unavailable Unavailable Freeman, A Janes MD Unavailable Unavailable Freeman, A Janes MD Unavailable Unavailable Freeman, A Janes MD Unavailable Unavailable Freeman, A Janes MD Unavailable Unavailable Freeman, A Janes MD Unavailable Unavailable Freeman, A Janes MD Unavailable Unavailable Freeman, A Janes MD Unavailable Unavailable Freeman, A Janes MD Unavailable Unavailable Freeman, A Janes MD Unavailable Unavailable Freeman, A Janes MD Unavailable Unavailable Freeman, A Janes MD Unavailable Unavailable Freeman, A Janes MD Unavailable Unavailable Freeman, A Janes MD Unavailable Unavailable Freeman, A Janes MD Unavailable Unavailable Freeman, A Janes MD Unavailable Unavailable Freeman, A Janes MD Unavailable Unavailable Freeman, A Janes MD Unavailable Unavailable Freeman, A Janes MD Unavailable Unavailable Freeman, A Janse MD Unavailable Unavailable Freeman, A Janes MD Unavailable Unavailable Freeman, A Janes MD Unavailable Unavailable Freeman, A Janes MD Unavailable Unavailable Freeman, A Janes MD Unavailable Unavailable Freeman, A Janes MD Unavailable Unavailable Freeman, A Janes MD Unavailable Unavailable Freeman, A Janes MD Unavailable Unavailable Freeman, A Janes MD Unavailable Unavailable Freeman, A Janes MD Unavailable Unavailable Freeman, A Janes MD Unavailable Unavailable Freeman, A Janes MD Unavailable Unavailable Freeman, A Janes MD Unavailable Unavailable Freeman, A Janes MD Unavailable Unavailable Freeman, A Janes MD Unavailable Unavailable Freeman, A Janes MD Unavailable Unavailable Freeman, A Janes MD Unavailable Unavailable Freeman, A Janes MD Unavailable Unavailable Freeman, A Janes MD Unavailable Unavailable Freeman, A Janes MD Unavailable Unavailable Freeman, A Janes MD Unavailable Unavailable Freeman, A Janes MD Unavailable Unavailable Freeman, A Janes MD Unavailable Unavailable Freeman, A Janes MD Unavailable Unavailable SHIRLEY LIM Unavailable Unavailable RING, K ALIZE PA Unavailable Unavailable RING, K ALIZE PA Unavailable Unavailable RING, K ALIZE PA Unavailable Unavailable RING, K ALIZE PA Unavailable Unavailable RING, K ALIZE PA Unavailable Unavailable RING, K ALIZE PA Unavailable Unavailable RING, K ALIZE PA Unavailable Unavailable RING, K ALIZE PA Unavailable Unavailable RING, K ALIZE PA Unavailable Unavailable RING, K ALIZE PA Unavailable Unavailable RING, K ALIZE PA Unavailable Unavailable RING, K ALIZE PA Unavailable Unavailable RING, K ALIZE PA Unavailable Unavailable RING, K ALIZE PA Unavailable Unavailable RING, K ALIZE PA Unavailable Unavailable RING, K ALIZE PA Unavailable Unavailable RING, K ALIZE PA Unavailable Unavailable RING, K ALIZE PA Unavailable Unavailable RING, K ALIZE PA Unavailable Unavailable RING, K ALIZE PA Unavailable Unavailable RING, K ALIZE PA Unavailable Unavailable TESS-FELIZ, ELIZABET DO Unavailable Unavailable TESS-FELIZ, ELIZABET DO Unavailable Unavailable TESS-FELIZ, ELIZABET DO Unavailable Unavailable TESS-FELIZ, ELIZABET DO Unavailable Unavailable TESS-FELIZ, ELIZABET DO Unavailable Unavailable TESS-FELIZ, LEIZABET DO Unavailable Unavailable TESS-FELIZ, ELIZABET DO Unavailable Unavailable TESS-FELIZ, ELIZABET DO Unavailable Unavailable TESS-FELIZ, ELIZABET DO Unavailable Unavailable TESS-FELIZ, ELIZABET DO Unavailable Unavailable TESS-FELIZ, ELIZABET DO Unavailable Unavailable TESS-FELIZ, ELIZABET DO Unavailable Unavailable TESS-FELIZ, ELIZABET DO Unavailable Unavailable TESS-FELIZ, ELIZABET DO Unavailable Unavailable TESS-FELIZ, ELIZABET DO Unavailable Unavailable TESS-FELIZ, ELIZABET DO Unavailable Unavailable TESS-FELIZ, ELIZABET DO Unavailable Unavailable TESS-FELIZ, ELIZABET DO Unavailable Unavailable TESS-FELIZ, ELIZABET DO Unavailable Unavailable TESS-FELIZ, ELIZABET DO Unavailable Unavailable TESS-FELIZ, ELIZABET DO Unavailable Unavailable TESS-FELIZ, ELIZABET DO Unavailable Unavailable TESS-FELIZ, ELIZABET DO Unavailable Unavailable TESS-FELIZ, ELIZABET DO Unavailable Unavailable TESS-FELIZ, ELIZABET DO Unavailable Unavailable TESS-FELIZ, ELIZABET DO Unavailable Unavailable TESS-FELIZ, ELIZABET DO Unavailable Unavailable TESS-FELIZ, ELIZABET DO Unavailable Unavailable TESS-FELIZ, ELIZABET DO Unavailable Unavailable TESS-FELIZ, ELIZABET DO Unavailable Unavailable TESS-FELIZ, ELIZABET DO Unavailable Unavailable TESS-FELIZ, ELIZABET DO Unavailable Unavailable TESS-FELIZ, ELIZABET DO Unavailable Unavailable TESS-FELIZ, ELIZABET DO Unavailable Unavailable TESS-FELIZ, ELIZABET DO Unavailable Unavailable TESS-FELIZ, ELIZABET DO Unavailable Unavailable TESS-FELIZ, ELIZABET DO Unavailable Unavailable TESS-FELIZ, ELIZABET DO Unavailable Unavailable TESS-FELIZ, ELIZABET DO Unavailable Unavailable TESS-FELIZ, ELIZABET DO Unavailable Unavailable TESS-FELIZ, ELIZABET DO Unavailable Unavailable TESS-FELIZ, ELIZABET DO Unavailable Unavailable TESS-FELIZ, ELIZABET DO Unavailable Unavailable TESS-FELIZ, ELIZABET DO Unavailable Unavailable TESS-FELIZ, ELIZABET DO Unavailable Unavailable TESS-FELIZ, ELIZABET DO Unavailable Unavailable TESS-FELIZ, ELIZABET DO Unavailable Unavailable TESS-FELIZ, ELIZABET DO Unavailable Unavailable TESS-FELIZ, ELIZABET DO Unavailable Unavailable TESS-FELIZ, ELIZABET DO Unavailable Unavailable TESS-FELIZ, ELIZABET DO Unavailable Unavailable TESS-FELIZ, ELIZABET DO Unavailable Unavailable TESS-FELIZ, ELIZABET DO Unavailable Unavailable TESS-FELIZ, ELIZABET DO Unavailable Unavailable TESS-FELIZ, ELIZABET DO Unavailable Unavailable TESS-FELIZ, ELIZABTE DO Unavailable Unavailable TESS-FELIZ, ELIZABET DO Unavailable Unavailable TESS-FELIZ, ELIZABET DO Unavailable Unavailable TESS-FELIZ, ELIZABET DO Unavailable Unavailable TESS-FELIZ, ELIZABET DO Unavailable Unavailable TESS-FELIZ, ELIZABET DO Unavailable Unavailable TESS-FELIZ, ELIZABET DO Unavailable Unavailable TESS-FELIZ, ELIZABET DO Unavailable Unavailable TESS-FELIZ, ELIZABET DO Unavailable Unavailable TESS-FELIZ, ELIZABET DO Unavailable Unavailable TESS-EFLIZ, ELIZABET DO Unavailable Unavailable TESS-FELIZ, ELIZABET DO Unavailable Unavailable TESS-FELIZ, ELIZABET DO Unavailable Unavailable TESS-FELIZ, ELIZABET DO Unavailable Unavailable TESS-FELIZ, ELIZABET DO Unavailable Unavailable TESS-FELIZ, ELIZABET DO Unavailable Unavailable TESS-FELIZ, ELIZABET DO Unavailable Unavailable TESS-FELIZ, ELIZABET DO Unavailable Unavailable TESS-FELIZ, ELIZABET DO Unavailable Unavailable TESS-FEILZ, ELIZABET DO Unavailable Unavailable TESS-FELIZ, ELIZABET DO Unavailable Unavailable TESS-FELIZ, ELIZABET DO Unavailable Unavailable TESS-FELIZ, ELIZABET DO Unavailable Unavailable TESS-FELIZ, ELIZABET DO Unavailable Unavailable TESS-FELIZ, ELIZABET DO Unavailable Unavailable TESS-FELIZ, ELIZABET DO Unavailable Unavailable TESS-FELIZ, ELIZABET DO Unavailable Unavailable TESS-FELIZ, ELIZABET DO Unavailable Unavailable TESS-FELIZ, ELIZABET DO Unavailable Unavailable Re-disclosure Warning The records that [...] is protected by Article 27-F of the [facility] Public Health law. If you continue you may have access to information: Regarding HIV / AIDS; Provided by facilities licensed or operated by the [facility] Office of Mental Health; or Provided by the [facility] Office for People With Developmental Disabilities. If such information is present, then the following [facility] mandated warning applies: This information has [...] law may result in a fine or fci sentence or both. A general authorization for the release of medical or other information is NOT sufficient authorization for further disc losure. Allergies and Adverse Reactions Type Description Substance Reaction Status Data Source(s ) Propensity to adverse reactions [facility] Family History Family Member Name Family Member Gender Family Member Status Date o f Status Description Data Source(s) Unknown Unknown Problem [facility] ([facility]) Encounters Encounter Providers Location Date Indications Data Source(s ) Outpatient Attender: ARACELY Álvarez Braga Prima ry 05/25/2021 09:35:00 AM EDT [facility] ([facility] Outpatient Attender: ALIZE Álvarez Braga Primary 05/24/2021 08:10:00 AM EDT [facility] ([facility]) Outpatient Attender: Janes Freeman MD [id number] 01/23/2021 12:00 :00 AM EDT Spondylosis without myelopathy or radiculopathy, cervical region [facility] Spondylosis without myelopathy or radicu lopathy, cervical region Outpatient Attender: Janes Freeman MDAdmitter: Janes Freeman MD [facility] 12/19/2020 03:02:14 PM EDT - 12/21/2020 01:11:00 PM EDT Spondylosis without myelopathy or radiculopathy, cervical region [facility] Spondylosis without myelopathy or radicu lopathy, cervical region Patient discharged. Outpatient Attender: LJ Caspererrnati: Janes Freeman MD [id number] 12/18/2020 12:00:00 AM [facility] Outpatient Attender: ELIZABET Martinezer: ELIZABET MEJÍA DO 12/18/2020 12:00:00 AM [facility] Outpatient Attender: Antonio SOTO [facility] 12/05/2020 11:20:00 AM EDT [facility] ([facility]) Outpatient Attender: Selam giles 12/01/2020 11:30:00 AM EDT [facility] ([facility]) Outpatient Attender: Janes Freeman MD [id number] 12:00:00 AM EDT - 10/31/2020 09:25:02 AM EDT Disease of spinal cord, unspecified [facility] Disease of spinal cord, unspecified Outpatient Attender: Antonio SOTO [facility] 06/08/2020 09:40:00 AM EDT [facility] ([facility]) Outpatient Attender: NAN TANG 05/23/2020 04:34:00 PM [facility] Outpatient Attender: NAN TANG 05/09/2020 03:53:00 PM [facility] Outpatient Attender: NAN TANG 04/25/2020 04:20:00 PM E [facility] Outpatient Attender: NAN CLYDE 04/13/2020 04:07:00 PM [facility] Outpatient Attender: NAN TANG 04/11/2020 04:00:00 PM E [facility] Outpatient Attender: NAN TANG 03/28/2020 04:10:00 PM E [facility] Outpatient Attender: NAN CLYDE 03/07/2020 04:23:00 PM E [facility] Outpatient Attender: NAN TANG 02/21/2020 03:00:00 PM E [facility] Medications Medication Brand Name Start Date Product Form Dose Route Admi nistrative Instructions Pharmacy Instructions Status Indications Reaction Description Data Source(s) benzonatate 200 MG Oral Capsule Benzonatate 05/24/2021 12:00:00 AM EDT ORAL active [facility]) 200 mg 05/24/2021 12:00:00 AM EDT capsule 15 TAKE ONE CAPSULE BY MOUTH EVERY 8 HOURS NEEDED FOR COUGH TAKE ONE CAPSULE BY MOUTH EVERY 8 HOURS NEEDED FOR COUGH SOLD: 05/26/2021 [facility]ail[facility] Ortiz s tizanidine 2 MG Oral Tablet tizanidine (ZANAFLEX) tabl et 2 mg tizanidine (ZANAFLEX) tablet 2 mg 12/21/2020 11:19:49 AM EDT 2 mg Oral active 2 mg, Oral, Every 8 hours PRN, Muscle spasms, Starting on Maude 12/21/20 at 1119, For 30 days [facility] Medication administered onsite Acetaminophen 325 MG Oral Tablet acetaminophen (TYLENO L) tablet 650 mg acetaminophen (TYLENOL) tablet 650 mg 12/21/2020 11:14:41 AM EDT 65 0 mg Oral active 650 mg, Oral, E very 6 hours PRN, Mild Pain (Pain Scale Score 1- 3), Starting on Maude 12/21/20 at 1114, For 30 days
Maximum daily dose of acetaminophen is 3,000 mg from all sources in 24 hours.
[facility] Medication administered onsite Oxycodone Hydrochloride 5 MG Oral Tablet oxyCODONE (ROXICODONE) immediate release tablet 5 mg oxyCODONE (ROXICODONE) immediate release tablet 5 mg 12/21/2020 11:14:41 AM EDT 5 mg Oral active 5 mg, Oral, Every 4 hours PRN, Moderate Pain (Pain Scale Score 4-6), Starting on Maude 12/21/20 at 1114, For 3 days
If no COLORER MACHINE or when COLORER MACHINE has been DC.
Oxycodone immediate release is limited to 10 mg per dose. Higher doses ( only) require Pain Service consultation and approval.
[facility] Medication administered onsite Oxycodone Hydrochloride 5 MG Oral Tablet oxyCODONE (ROXICODONE) immediate release tablet 10 mg oxyCODONE (ROXICODONE) immediate release tablet 10 mg 12/21/2020 11:14:41 AM EDT 10 mg Oral active 10 mg, Oral, Every 4 hours PRN, Severe Pain (Pain Scale Score 7-10), or pre-painful procedure or activity, Starting on Maude 12/21/20 at 1114, For 3 days
If no COLORER MACHINE or when COLORER MACHINE has been DC.
Oxycodone immediate release is limited to 10 mg per dose. Higher doses ( only) require Pain Service consultation and approval.
[facility] Medication administered onsite ondansetron (ZOFRAN) injection 4 mg [id number] 12/21/2020 11:14:4 1 AM EDT 4 mg Intravenous active 4 mg, In travenous, Every 6 hours PRN, Nausea, Vomiting, Starting on Maude 12/21/20 at 1114, For 30 days [facility] Medication administered onsite fentaNYL (SUBLIMAZE) (PF) injection 25 mcg [id number] 12/21/2020 11:13:08 AM EDT 25 ug Intravenous active 25 m cg, Intravenous, Every 5 min PRN, Moderate Pain (Pain Scale Score 4-6), Starting on Maude 12/21/20 at 1113, For 10 doses, [facility] Medication administered onsite HYDROmorphone (DILAUDID) injection 0.5 mg [id number] 12/21/2020 11:13:08 AM EDT 0.5 mg Intravenous completed 0. 5 mg, Intravenous, Every 5 min PRN, Severe Pain (Pain Scale Score 7-10), Starting on Maude 12/21/20 at 1113, For 4 doses, [facility] Medication administered onsite ondansetron (ZOFRAN) injection 4 mg [id number] 12/21/2020 11:13:0 8 AM EDT 4 mg Intravenous active 4 mg, In travenous, Once PRN, Nausea, Vomiting, Starting on Maude 12/21/20 at 1113, For 1 dose, [facility] Medication administered onsite Calcium Chloride 0.0014 MEQ/ML / Potassi um Chloride 0.004 MEQ/ML / Sodium Chloride 0.103 MEQ/ML / Sodium Lactate 0.028 MEQ/ML Injectable Solution lactated ringers infusion lactated ringers infusion 12/21/2020 06:30:00 AM EDT 100 mL/h Intravenous completed at 100 m L/hr, Intravenous, Continuous, Starting on Maude 12/21/20 at 0630, For 4 hours
Lactated ringers infusion 100 ml / hour, on admission
Pre-op [facility] Medication administered onsite 5 mg 12/21/2020 12:00:00 AM EDT tablet 30 TAKE ONE TO TWO TABLETS BY MOUTH EVERY 6 HOURS NEEDED FOR MODERATE TO SEVERE PAIN FOR UP TO 7 DAYS, MAXIMUM DAILY DOSE = 8 TABLETS TAKE ONE TO TWO TABLETS BY MOUTH EVERY 6 HOURS NEEDED FOR MODERATE TO SEVERE PAIN FOR UP TO 7 DAYS, MAXIMUM DAILY DOSE = 8 TABLETS SOLD: 12/21/2020 [facility] 100 mg 12/21/2020 12:00:00 AM EDT capsule 20 TAKE ONE CAPSULE BY MOUTH TWICE A DAY NEEDED FOR CONSTIPATION FOR UP TO 10 DAYS TAKE ONE CAPSULE BY MOUTH TWICE A DAY NEEDED FOR CONSTIPATION FOR UP TO 10 DAYS SOLD: 12/21/2020 [facility] Acetaminophen 325 MG Oral Tablet Acetaminophen 325 MG Oral T ablet 12/21/2020 12:00:00 AM EDT 650 mg Oral active Take 2 tablets by mouth every 6 (six) hours as needed (mild pain) for up to 10 days [facility] Oxycodone Hydrochloride 5 MG Oral Tablet oxyCODONE HCl 5 MG Oral Tablet (ROXICODONE) oxyCODONE HCl 5 MG Oral Tablet (ROXICODONE) 12/21/2020 12:00:00 AM EDT mg Oral active Take 1-2 tablets by mouth every 6 (six) hours as needed (moderate to severe pain) for up to 7 days, Max Daily Dose: 40 mg [facility] Docusate Sodium 100 MG Oral Capsule Docu sate Sodium 100 MG Oral Capsule (COLACE) Docusate Sodium 100 MG Oral Capsule (COLACE) 12/21/2020 12:00:00 AM EDT 100 mg Oral active Take 1 cap susan by mouth Two times daily as needed for Constipation for up to 10 days [facility] Ondansetron 4 MG Disintegrating Oral Tab let Ondansetron 4 MG Oral Tablet Disintegrating (ZOFRAN-ODT) Ondansetron 4 MG Oral Tablet Disintegrat ing (ZOFRAN-ODT) 12/21/2020 12:00:00 AM EDT 4 mg Oral activ e Take 1 tablet by mouth every 8 (eight) hours as needed for Nausea for up to 4 days [facility] tizanidine 2 MG Oral Capsule tiZANidine HCl 2 MG Oral Capsule (Zanaflex) tiZANidine HCl 2 MG Oral Capsule (Zanaflex) 12/21/2020 12:00:00 AM EDT 2 mg Oral active Take 1 capsule by mouth Three times daily as needed for Muscle spasms for up to 5 days [facility] Ondansetron 4 MG Disintegrating Oral Tablet ONDANSETRON 12/21/2020 12:00:00 AM EDT tablet,disintegrating 12 DISSOLVE O NE TABLET UNDER THE TONGUE EVERY 8 HOURS NEEDED FOR NAUSEA FOR UP TO 4 DAYS DISSOLVE ONE TABLET UNDER THE TONGUE EVERY 8 HOURS NEEDED FOR NAUSEA FOR UP TO 4 DAYS SOLD: 12/21/2020 [facility] 2 mg 12/21/2020 12:00:00 AM EDT capsule 15 TAKE 1 CAPSULE BY MOUTH 3 TIMES A DAY NEEDED FOR MUSCLE SPASMS FOR 5 DAYS MAX TAKE 1 CAPSULE BY MOUTH 3 TIMES A DAY NEEDED FOR MUSCLE SPASMS FOR 5 DAYS MAX SOLD: 12/23/2020 [facility] valacyclovir 1000 MG Oral Tablet VALACYCLOVIR HCL 12/01/2020 12: 00:00 AM EDT tablet 30 TAKE ONE TABLET BY MOUTH THREE T IMES A DAY FOR 10 DAYS TAKE ONE TABLET BY MOUTH THREE TIMES A DAY FOR 10 DAYS SOLD: 12/04/2020 [facility] valacyclovir 1000 MG Oral Tablet Valacyclovir HCL 12/01/2020 12:00: 00 AM EDT completed [facility] ([facility]) 4 mg 10/05/2020 12:00:00 AM EST tablets,dose pack 21 TAKE PER DIRECTIONS PROVIDED WITH DOSEPAK TAKE PER DIRECTIONS PROVIDED WITH DOSEPAK SOLD: 10/06/2020 [facility] Escitalopram 10 MG Oral Tablet Escitalopram Oxalate 09/24/2020 1 2:00:00 AM EST active [facility] ( [facility]) 750 mg 06/08/2020 12:00:00 AM EDT tablet 30 TAKE ONE TABLET BY MOUTH AT BEDTIME NEEDED TAKE ONE TABLET BY MOUTH AT BEDTIME NEEDED SOLD: [facility] Injection Ketorolac Tromethamine Per 15 MG (Toradol) 06/08/2020 12:00:00 AM EDT completed [facility] ([facility]) Medication administered onsite 300 mg 06/08/2020 12:00:00 AM EDT capsule 60 TAKE ONE CAPSULE BY MOUTH THREE TIMES A DAY NEEDED TAKE ONE CAPSULE BY MOUTH THREE TIMES A DAY NEEDED SOLD: 06/08/2020 [facility] Medrol Medrol 06/08/2020 12:00:00 AM EDT completed [facility] ([facility]) Methocarbamol 750 MG Oral Tablet Methocarbamol 06/08/2020 12:00:00 AM EDT ORAL completed [facility] ([facility]) 4 mg 06/08/2020 12:00:00 AM EDT tablets,dose pack 21 TAKE DIRECTED TAKE DIRECTED SOLD: 06/08/2020 [facility] gabapentin 300 MG Oral Capsule Gabapentin 06/08/2020 12:00:00 AM EDT ORAL active [facility] ([facility]) Diclofenac Sodium 75 MG Delayed Release Oral Tablet DICLOFEN AC SODIUM 06/06/2020 12:00:00 AM EDT tablet,delayed release (DR/EC) 90 T BLANCHE ONE TABLET BY MOUTH EVERY DAY NEEDED TAKE ONE TABLET BY MOUTH EVERY DAY NEEDED SOLD: 02/24/2021 [facility] Diclofenac Sodium 75 MG Delayed Release Oral Tablet DICLOFEN AC SODIUM 06/06/2020 12:00:00 AM EDT tablet,delayed release (DR/EC) 90 T BLANCHE ONE TABLET BY MOUTH EVERY DAY NEEDED TAKE ONE TABLET BY MOUTH EVERY DAY NEEDED SOLD: 06/07/2020 [facility] Omeprazole 20 MG Delayed Release Oral Ca psule omeprazole (PRILOSEC) 20 MG capsule omeprazole (PRILOSEC) 20 MG capsule 07/27/2018 12:00:00 AM EST aborted TAKE 1 TABLET BY MOUTH ONCE DAILY FOR 30 MINUTES . BEFORE A MEAL [facility] Diclofenac Sodium 75 MG Delayed Release Oral Tablet diclofenac (VOLTAREN) 75 MG EC tablet diclofenac (VOLTAREN) 75 MG EC tablet 07/27/2018 12:00:00 AM EST 75 mg Oral aborted Take 75 mg by mouth noel y as needed [facility] Insurance Providers Payer name Policy type / Coverage type Policy ID Covered libertarian ID Covered libertarian's relationship to brown Policy Brown Plan Information [employer]ET[employer] [id number] Self [id number] Workers Compensation Workers Compensation [id number] Self [facility] U/W Commercial [id number] Family Dependent VY [id number] [employer] [id number] [facility] [id number] BCBS/[employer] Commercial [id number] [id number]. [id number] Family Dependent [id number] [facility] Part B [id number] 3.0 Self [id number] [facility] U/W Commercial [id number] [id number] Self VY [id number] [place] PPO 302/307 [id number] SP [id number] [facility] [id number] SP [id number] [employer] [facility] Part B [id number] [id number] 3.0 Self [id number] [facility] U/W Commercial [id number] [id number] Self VY [id number] [employer] [facility] Part B [id number] [id number] 3.0 Self [id number] [facility] U/W Commercial [id number] [id number] Self VY [id number] [employer] Commercial [id number] [id number] 2.0 Self [id number] AETNA (HMO/PPO/POS/GPPO - MANAGED CARE [id number] 0 [id number] AETNA [facility] [place] O [id number] O [id number] [employer] [facility] Part B [id number] [id number] 3.0 Self [id number] [facility] U/W Commercial [id number] [id number] Self VY [id number] [facility] U/W Commercial [id number] Self VY [id number] [employer]ET[place] [facility] [place] [id number] SP [id number] [place] PPO 302/307 [id number] SP [id number] [facility] U/W Commercial [id number] [id number] Self VY [id number] [facility] B [id number] S VYS [id number] [facility] U/W Commercial [id number] Self VY [id number] [facility] U/W Commercial [id number] Self VY [id number] [place] PPO 302/307 [id number] SP [id number] [facility] [id number] Self [id number] [facility] U/W Commercial [id number] [id number] Self VY [id number] [facility] U/[employer] Commercial [id number] Self SELF PAY ONLY UNAVAILABLE SP UNAV AILABLE [facility] [id number] SP [id number] [facility] O [id number] S [id number] [facility] Community Plan Commercial [id number] Self SELF PAY UNAVAILABLE SP UNAVAILA BLE [place]BS [place] PPO 302/307 [id number] SP [id number] [place]BS [place] PPO 302/307 [id number] [facility] BCBS B [id number] P VYS [id number] BCBS [place] [id number] SPO VYS [id number] BCBS/[facility] Commercial 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 Z53.29 Procedure and treatment not carried out because of patient's decision for other reasons PROC/TRTMT NOT CRD OUT BEC PT DECISION FOR OTH REASONS Diagn osis 05/09/2020 03:53:00 PM [facility] Surgeries/Procedures Procedure Description Date Indications Data Source(s) OFFICE OUTPATIENT VISIT 15 MINUTES 05/25/2021 12:00:00 AM EDT [facility] OFFICE OUTPATIENT VISIT 15 MINUTES 05/24/2021 12:00:00 AM EDT [facility] RADEX SPINE CERVICAL 2/3 VIEWS <td>XR SPINE CERV 3 VIE WS OR LESS-OR [id number]</td><td>Routine</td><td>12/21/2020 10:49 AM EDT</td><td> Pain</td><td> </td> 12/21/2020 10:49:48 AM EDT [facility] Pain Electrocardiogram Complete 12/05/2020 12:00:00 AM EDT [facility] ([facility]) OFFICE OUTPATIENT VISIT 15 MINUTES 12/01/2020 12:00:00 AM EDT [facility] ([facility]) Results ID Date Data Source [id number] 05/25/2021 12:00:00 AM EDT [facility] Name Value Range Interpretation Code Description Data Pat rce(s) Supporting Document(s) SARS-CoV2 Rapid Antigen Positive [facility] This lab was ordered by [facility] and reported by [facility]. ID Date Data Source [id number] 01/23/2021 09:14:41 AM EDT [facility] Name Value Range Interpretation Code Description Data Pat rce(s) Supporting Document(s) Progress Note [facility] SJXFQk5rBwQCAjBr99/GNOopAJZlf8JqJYvsUOd9HRgqBDYsR8QmQSA6nW0lNKQ0CXnULzPuAxVmPaF0 m [file] I0eVCbSx9DTSl0DiYLIyFlWY7WVPf= ID Date Data Source [id number] 12/21/2020 01:37:00 PM EDT [facility] Name Value Range Interpretation Code Description Data Pat rce(s) Supporting Document(s) Progress Note [facility] JILUKd3vUdOONtWy00/SFXabRHAkv2MjBYbuHFf8RFkaPIIfR1GkWTE3dT0xMNI6LXnWKaDwFrBlJDA5 lbm [file] AvRjAgMTAgMCBSDQogICAgICAvRjEgMTMgMCBSDQog BPWkONKwZlUhXZMoAIMROy1VUoHmPAJgKG1lqdZioEV1DTP+Yy2CJWPzVB2YxCDOS9AdxQKgKDtxT2IX YJ4PILY9PX2GiWMrOP8PtLADL2RoxYHzQg7dEPDlf4PaXa1kJ2DJVGKWZLWlHEecCAwbACJoXBg5E8J6 DUIhH1HRN619sXRjsWv0Zg9dD9SMJAoOOtWaYYkkKB ggQZFoCKm4C0H4TWLmT1RGF8MrEzFdukFdW6W+HtCyGSPAYT9IDKMALYv1K5B8qPXhR1P9eWmUoVD9AK 3SIG8CoQDznRFhb05+KsUPZxGbFZIgF9FTBLXWXtMeMLleFTgiAGNlESp6H5T1PDHsV6BST1upT2w4IP 4+QnVIJfSbIMFkJy1AFoYxRz1VBvVsCR2nru7PCUew MGSyStgVDur1Y9hoxgg4mCDiEwI9P5G4JzO4rQAlZE2LY2G0gHLuNEQ0SDJllHK+He7Rs8SuSXRfDXm3 J7ioKEZaGZQqDrSwkX40J++3qlhcqTR0Q2p0LTWLqARtnZkBkgKjN6hCOSJ5k4Q4VPl/Op7IPDE2hJq6 hTPhXUItOAi0hL6kqSe4NiCfHS25XEEfEChyeE7yIy b4M5Inx0ObPt3jLz9ppYKmKr1SVwMgZGB7faPvQpXMTlM2uKblowjpSJH8E9y5zMH6So84f0scxwRxj9 JyDcI3IGfsOMPtLyZqobBxWME8qrRqwZ2vzeFnJy6HWDMjYHzpiyWiXvLZYy5BLzIoNZ23UucxhA0dvP E+DQogICAgICAgICAgICAgICAgICAgICAgICAgICAg ICAgICAgICAgICAgICAgICAgICAgICAgICAgICAgICAgICAgICAgICAgICAgICAgICAgICAgICAgICAg ICAgICAgICAgICAgDQogICAgICAgICAgICAgICAgICAgICAgICAgICAgICAgICAgICAgICAgICAgICAg ICAgICAgICAgICAgICAgICAgICAgICAgICAgICAgIC AgICAgICAgICAgICAgICAgICAgICAgDQogICAgICAgICAgICAgICAgICAgICAgICAgICAgICAgICAgIC AgICAgICAgICAgICAgICAgICAgICAgICAgICAgICAgICAgICAgICAgICAgICAgICAgICAgICAgICAgIC AgICAgDQogICAgICAgICAgICAgICAgICAgICAgICAg ICAgICAgICAgICAgICAgICAgICAgICAgICAgICAgICAgICAgICAgICAgICAgICAgICAgICAgICAgICAg ICAgICAgICAgICAgICAgDQogICAgICAgICAgICAgICAgICAgICAgICAgICAgICAgICAgICAgICAgICAg ICAgICAgICAgICAgICAgICAgICAgICAgICAgICAgIC AgICAgICAgICAgICAgICAgICAgICAgICAgDQogICAgICAgICAgICAgICAgICAgICAgICAgICAgICAgIC AgICAgICAgICAgICAgICAgICAgICAgICAgICAgICAgICAgICAgICAgICAgICAgICAgICAgICAgICAgIC AgICAgICAgDQogICAgICAgICAgICAgICAgICAgICAg ICAgICAgICAgICAgICAgICAgICAgICAgICAgICAgICAgICAgICAgICAgICAgICAgICAgICAgICAgICAg ICAgICAgICAgICAgICAgICAgDQogICAgICAgICAgICAgICAgICAgICAgICAgICAgICAgICAgICAgICAg ICAgICAgICAgICAgICAgICAgICAgICAgICAgICAgIC AgICAgICAgICAgICAgICAgICAgICAgICAgICAgDQogICAgICAgICAgICAgICAgICAgICAgICAgICAgIC AgICAgICAgICAgICAgICAgICAgICAgICAgICAgICAgICAgICAgICAgICAgICAgICAgICAgICAgICAgIC AgICAgICAgICAgDQogICAgICAgICAgICAgICAgICAg ICAgICAgICAgICAgICAgICAgICAgICAgICAgICAgICAgICAgICAgICAgICAgICAgICAgICAgICAgICAg UHPbOJBiZKYwANBcOUGzGUUwESDnJIb8E6mmHGNpPZHsGK8sIPw1Kz7+CUaOHmBxDHB4huIlaZ1NJQ5r g0BcDDwkUAGsf4QnKCs3PA2PAXMqRYqjCO7UKBmahk 9KHVMfTWFzkEWWf0dqQqZgOAO7OXQsOjkmJO7QSXYyE3bjjwJiWRBuJBKVTKyoFGUGMM0IBtZrF6QisF 45KDMMBk9+KFephrYdLzjRLsD6THJwd6EyUYj9VJ3QMCFoBqqrc1QbNjIkCOZXRMaiGE1MQLU5EAUvLO ZoLk1ZXFTuM090luSpBN7VAc0NZvNtGG6cjs0IUoWw VZJkMgcEVvh4VHulGD0PoIIaLEkBvy1gjlPevuHSq8QujiSstPGEtFYovPHwlHGrTbQNzEIxmj1kjdMe RVCRTDO6SFVyKw8wGWBqRXMcZeJoSWEJGY8XYVVgHDOqzWHyKZCjTLNIXK9YHZbsZUE9NNYksbCexDSk EMseOL8SPURempHfXTyfCVJHNRe+Uz3LDX8af8OmVT fsBFAfOB4tpp3XOQyGEbGcJ6J2jPVjJ5O1AGudGx8WNHQzWJZoUUasSSTZIEzpVD9OFA5zuqR0RL1YnL ZbJQZxLYHssGCeUVv3Z00wuUBrOCcuKU4BKXD+Osman+Wt3ABYWeXUDzZSPbNzLfRNHHXxVsY4OpV4LYk5 SuI5EhKB33iZamuaMgFUskUO9LIH1vCBBuBAYXKC1J vBHgyV7ncwYqFUWbEKWSDhDtA29zmAIxGFFxPUV0LVQrFy1UBLNgV7IlusGpsQwwcbTlNQPbCCLLWJ1K KNpxoePdaNPqoSvoLH14iAceBJ5XZf5KTxXkMA7xeu9RlLFeMf5SGETcGy6JXLChRUFuQFOlYWH4IEJh KdZuLAihPPTrBGOoWVB4OFXtNGTnTZ8XIdJwOJBfCC v3KViiJCLcMYEmoe8NWGKqDCTjZSBxAnRpZUXqWDOoZMooZKNxEVYzTTJ0FWGqAYDjFC8LHoAqHTAvMU X5SWDmXTAlVYJlag6JTMLgBTQxItE5PsGgGEXrWZQpTRpsPSYrRTI5AAY6JTFvYZSpYQ8HKgRrSAJhRO Q2SanvAUTpNLXsgw7KAKBfDSIeEAJ6JOCgLSKnOSAx BOflLLFqOQZ8Ute0AXIuPHNvSJ9PWeJbULIqWYF1JqRfJJLmBEUmvc8YGAFbLVLpNiwvGCDpZKPuZNVz LBnsGSJpUBZ6LIP7SFYySHEhDU5FTyRbLNDlJYabImLuYIRcEUFwhr9GOILjXXUvKOI3OGWyZNCwFAXx LCznMYIaSSX4SImuEIHmJOCxEX8LQqKkKSJvKAk7Fz IaSYPgASGbwg9SHXUtEDNhWOM8FgJxEELsJAGzRHziONBqTBSyASSqOIIbPEPuSX9GLaAmUNTrPYR7QQ HjLNLpUXRzfd0BBYIuQPMfRFm7FkElTJXhDCUbUYz9tdVyzRWcRPg9IV2XU0YcpfKuWmRVYf0Ya103DB ImKVQyIc6JD7xwCf6bKAYbIMGMXa6XXKw1QcM3ZMX3 AkV7DfAfUCF0BcDmNDGwHoCsUrEfIdHdLbu+XBopVwy4YpvhYTpnJUW5JSZ8RhNbToGnHwSzDuFlSMDe QN8wPFIFGf3+TRjsuOGjaKqqZONHJrHrOCEnHIpbOUMQMf8A ID Date Data Source [id number] 12/21/2020 01:31:[address] [facility] Name Value Range Interpretation Code Description Data Pat rce(s) Supporting Document(s) Progress Note [facility] XNQQRi2nZlVQEgAw68/WJKxuMQIhd1WuGYgpPLv4EXkjKOTpV1LfTLX7tM6fNZO8YTnCWcSaDbCyKQQ7 lbm [file] ICAgICAgICAgICAgICAgICAgICAgICAgICAgICAgICAgICAgICAgICAgICAgICAgICAgICAgICAgICAg ICAgICAgICANCiAgICAgICAgICAgICAgICAgICAgIC AgICAgICAgICAgICAgICAgICAgICAgICAgICAgICAgICAgICAgICAgICAgICAgICAgICAgICAgICAgIC AgICAgICAgICAgICAgICAgICANCiAgICAgICAgICAgICAgICAgICAgICAgICAgICAgICAgICAgICAgIC AgICAgICAgICAgICAgICAgICAgICAgICAgICAgICAg ICAgICAgICAgICAgICAgICAgICAgICAgICAgICANCiAgICAgICAgICAgICAgICAgICAgICAgICAgICAg ICAgICAgICAgICAgICAgICAgICAgICAgICAgICAgICAgICAgICAgICAgICAgICAgICAgICAgICAgICAg ICAgICAgICAgICANCiAgICAgICAgICAgICAgICAgIC AgICAgICAgICAgICAgICAgICAgICAgICAgICAgICAgICAgICAgICAgICAgICAgICAgICAgICAgICAgIC AgICAgICAgICAgICAgICAgICAgICANCiAgICAgICAgICAgICAgICAgICAgICAgICAgICAgICAgICAgIC AgICAgICAgICAgICAgICAgICAgICAgICAgICAgICAg ICAgICAgICAgICAgICAgICAgICAgICAgICAgICAgICANCiAgICAgICAgICAgICAgICAgICAgICAgICAg ICAgICAgICAgICAgICAgICAgICAgICAgICAgICAgICAgICAgICAgICAgICAgICAgICAgICAgICAgICAg ICAgICAgICAgICAgICANCiAgICAgICAgICAgICAgIC AgICAgICAgICAgICAgICAgICAgICAgICAgICAgICAgICAgICAgICAgICAgICAgICAgICAgICAgICAgIC AgICAgICAgICAgICAgICAgICAgICAgICANCiAgICAgICAgICAgICAgICAgICAgICAgICAgICAgICAgIC AgICAgICAgICAgICAgICAgICAgICAgICAgICAgICAg ICAgICAgICAgICAgICAgICAgICAgICAgICAgICAgICAgICANCiAgICAgICAgICAgICAgICAgICAgICAg ICAgICAgICAgICAgICAgICAgICAgICAgICAgICAgICAgICAgICAgICAgICAgICAgICAgICAgICAgICAg ICAgICAgICAgICAgICAgICANCjw/oXZaB3blfAVatl I7R2qcEw3OBx9UBM6rx6PmGWSqDJbzcxRtNbpMZkRsPCPlMvgXPnb3XUocPM1HoSAxJ3GoY5AdHBtxQI 0YGJSvBTZcpQYjEBXsYMWxFxR6LPUgJNxqOC4AkQLgHGihPLMdOUPlDE2KNWWbE026emLoUU3JDs7TQu EwIA5wpa4VCWLjKKVpUlcUExd1PPpfWS6XcKOqjSFi MWEtRKFDOoZxH9rlm3MbLXBiZPBAPUjySI6Na1UdcZDrELf+Ze6AFE7dc9DbQGfkLSFaDD2qer9EOHdP BjRvK7NptHhjJIWus9egSWZcOI1heSNsCGT7XK5qY5zcxdQPAZKbsOYzZTGFUGI4YORhIt9hDHVnQNIf FpRxGSSIWU7DPQPlFHTswMLaTIAdSNMSUY5EAGxjIN B0CJLkleRlvPRkXZnsZJ9HTTGtzwDgZPGfFMPJXYm+Sj4XOU7mh1DkJOduPhJvIC6fxw5PPZvFSbNjV8 U4gQJeI3I8DZsyLd2UMXYxROPnNKUdZBIPNAahCB4PUP1fioZ4LF1IqUUyJJRgSBBwrJQzPGq7L53uuG WfBFirWJ7LQXD+Osman+Cy6OGIZeMVEfDHGsKrFrRTIM UwKlZ5BdR6JFy2JiD2AwHY36oXikltDuPLyeSW6MIB1mUXOoUAAPUF4EtXXhlL5tnzZzLECfUSIHZjOw S97hxDKgFRLjBJAqPVCyLx0ZZFIdZ3HffkVvbHlwjxAcFFMsQLTNIK6SAKmyomPtpNRvpZnbHC40aTbb RQ7SDn1BLoQeVQ9mji9HeHMtSq7UVMWwQy6UKOSfFK LhHLDwFTC4TUYvKkRcTAxzAQIaVOMnNOS4UEOuIPFlMQ9WWgRuGJYrHEJ4YmVhIBRxTPLuhx0SEWHqSP CdBiQ4NYRpMFKcJMDpNIenOVQpCUZcUFI1EJCmFMLfMN9YHrEtMKFsQIK9GLVnNGSbFULofo2AUGUeTX OqNdVwEMDiUXZdBTVyQLzyFEEkBIViDYy6HKSvGNJb SZ1WEjWmNNTpPTSnRkTpANSqSWYzqp4YMWGvZYXnOvL5RgZePBSiVVZcJZhyRPOnCYX4XKQkERFdNNCj WD9RLfJlGSAbWJU0SPRsWIWtEQFxep6VOBIvLLAwHDloLFLbRWMdZZTgKVnwWVBpIWL2UhH4NLIaFQCq MB0EBkQwXCMvYXI0FCYeQWPaWRHuhk1IRZJgZRBuGf chItEjUEZpNGRzJLcnITHgVAX5BBGvIYUgMRViZV3TRbLsSSguKDSLNii8DDuoN8m2FURxDn5YX8Svd1 CbIPEuSDFQFJnhPO7jyxNhAHMxZy6QF8dGKnj7M3ClArr0UUNtHNDaFwDmZIzxZLTaLGndFwMaLRhvCW 8pSTrmFxIoEMylHxZnN2SnIOMiX7TgE2Z4ZYOqY4B2 GMP1BoMrDC7NVc8KKrT1DWH5bOIiGq8DKvVoQC8OWQIPP7TEQp== ID Date Data Source [id number] 12/21/2020 11:22:32 AM EDT [facility] Name Value Range Interpretation Code Description Data Pat rce(s) Supporting Document(s) Operative Note [facility] JKEIJy4rGnSQByKt30/BZNmpGNIgl5XhOKdnWKr0GJngWZWxC6XaIXS3hI4yOND2IVeFYcTxGzGeQMH7 lbm MoJxrMXmJkVBUvHddCBnTrZVioKuzcjIInRB3RrMT2EWIxC01tRYRlEWGbZ4VuFZZ0UFR+Rh4HXJGcxD ViGN7ZIakS3D5gA0iVGh3+Vfc/QYEhkrfgNs1ubKonBJfVojYKmCXvWF/LlCS0niMIRNbTM56ngAoMzp RalCmwAghMZ2QbbI8Nbr78qtAU/nrC1W9Ly1WY/N/y 2lq1mHnn+yvttFaw05a+mnlZPTOx3WeDoa2F7x++e/lD50qq46wRdYAD0Ij1mB1HGFYxiAEO1+GTV0/N 8e/BvXSBl5sDYniDY7G6haJKyjcfwlFKt8zGMFl1lh/4pz5Jc9YX0YI2LhOaKC7eFFewV1RuXMtqO82G VTe66qEzqH6fnE1SNQCg0797dQeFcCoD7U7UOzJ0GK oxxY9xq6inO072lxAfPzhfmMgoUZE9hoHykaxxtA05jivpS4XbfAlgRh58Axge+rEXsh/BbAQtWli0dG J4ORn3VNVsakMQ6N7LiDu16RGGaRQGwMx1zILs2F9tdlk4ZI/MxtlkZvazy/t5VvuhqR3AcZFe7zhb3F W88v176CB7Ovsni2jCWDmiHFDrm7HXOCGKUmmmv2Sc PpoU+rKFyB8awrGx+n6fo9SyJ76lj+w8yUQhDSbT2BwMht/82QeKGtAU3NTzOmeEvdzKYUcWJgQ14zyL 94kFibQHlLSEU82oGu0nAYv9R8jxwJ/C1E7jBS0GTY7Xd72cGUnrJ00hAzrG7tsdlc3Jd1LOeL3/7+DI HA2izIddA+nOdIiqAH5rtKM+UdQ+XcIulT8ewgHUdn XXUksEwkdmH9jmssoGlGYfI3eIkmzxmZB2iuYnfzRimg8j4BwkMKlH+kc6owv8CmdMspXu6dI1JTr6Ce /iiKThi4jP0eJcSVbNgT76ABM0MXqM2neUcM95mlV2+w2gNCc2FYgSs+S8oR64kO7FgTtDgduTr57Pc9 YZ2K8yclqa98ubUfbsh9PV2DsNx+39RAMXNqRM/Jyoti [file] ID Date Data Source [id number] 12/21/2020 10:49:59 AM EDT [facility] XR SPINE CERV 3 VIEWS OR LESS-OR 38333FT NAL RESULTThis statement is intended for documentation purposes only.This exam was performed in the Operating Room by the Surgeon and a Radiologist was not present. Please refer to the Operative note in EPIC. Name Value Range Interpretation Code Description Data Pat rce(s) Supporting Document(s) ID Date Data Source [id number] 12/21/2020 07:58:51 AM EDT [facility] Name Value Range Interpretation Code Description Data Pat rce(s) Supporting Document(s) History and Physical [facility] DHRJGa2hLjWZHaYr11/IWHpyWPJec6CyDGiaBNy1ZFpeMJKzD0CeEDF9eV3rIUA8VPcZTlWvVlYyRYG6 lbm [file] ICAgICAgICAgICAgICAgICAgICAgICAgICAgICAgIC AgICAgICAgICAgICAgICAgICAgICAgICAgICAgICAgICAgICAgICAgICAgICAgICAgICAgICAgICAgIC LdKAEyFU2INJGqVVMjMJBzXVLyNQMrOVCtBWMnYJEwRCFtYSCvFELiMEVnYNSlUPZyFRAoLSByKRKzXF AgICAgICAgICAgICAgICAgICAgICAgICAgICAgICAg KKDfMZFgSHZoSGWqXYVhTI7ANMGdOOKyPIFhCQAwQECyCKOcEBHiYVGfQNRoRPUvBQQeMZLbPCHnBJCz MGJxAHFqTRZwJLIaXPXeXXDzHQNrMBPbFXHwWXBzHXPyCHFuRFBlHWZmFSGcNGEjYFVpPFYkEAJeVI9L ICAgICAgICAgICAgICAgICAgICAgICAgICAgICAgIC AgICAgICAgICAgICAgICAgICAgICAgICAgICAgICAgICAgICAgICAgICAgICAgICAgICAgICAgICAgIC VaJUQqGOCqXT9PSDUkXTMxPFDeZYNzRASqSPQbGUCjLDDcGXMpNCEpYZGdFSHyPQGiLOOeZGEsYAOiFM AgICAgICAgICAgICAgICAgICAgICAgICAgICAgICAg RRXnHKPrTXCvGKNhKAYqLGRlNY1YEGLjHUElVVEfYGEvYZTxZGDoALGcQGTzOPJeZABoFQGdXOAqUBPl ICAgICAgICAgICAgICAgICAgICAgICAgICAgICAgICAgICAgICAgICAgICAgICAgICAgICAgICAgICAg NF5NUYLmYGUjWXSaRQJqHIFzPQUdXHXnBSOjIZOtQV AgICAgICAgICAgICAgICAgICAgICAgICAgICAgICAgICAgICAgICAgICAgICAgICAgICAgICAgICAgIC BdMMRgLEEwHOTbKX8XTVCdXRCsWNFxYPAfXALgJMFxUKSzRAOaEIQhCSRfBUZzVDZvKDCePLZbLGSgFC AgICAgICAgICAgICAgICAgICAgICAgICAgICAgICAg VHLoTKLdVOOsTIHfGWEpSBKyUIKwHR3LCWBhVTYfFNGwXQVoNTEdMMDlVYZiGFUsZPJlNGLlEKRlVVAt ICAgICAgICAgICAgICAgICAgICAgICAgICAgICAgICAgICAgICAgICAgICAgICAgICAgICAgICAgICAg KPEpPU2DII63xDYds2K5HMPeOC2cnbm/Nq2GMPlmqi WftPUbBG4RHrNrLH7fgo9GMnXsFQ6cza2DYPwIAgKvW5M2qKUaMAKqPPDCEbUiL08pGIqkXh38WUdkOB NuTvEaCOq7Ru6LQwHtV9rhORLwZmL8ECYtKuI2QDEjUsM0QZLkYtBhXIFmBXAtGP3XGBHcO699luTtNK 4RQs3KIkDwHU6emw2TQnZnYPThKcbMIjk4NJppUC9W cCEmqSBvFpDcZNVZNmWgQ7kll9UjYdGeMFCCENxeGQ4Jb0DtnKUqEKz+Qb7UKQ7bq0ZyHHfjYqPkET5i fw4UQTiPPfDbB3HvgWajCRrnQYLhuLRVkOGoHPckMGLUPJQnEAlbvDDpAZ8UITZ4TBAcYa4zGEUySPE7 TxQ7DPFSBA5EIGRaLHBgiRGfPHWxKUDNLV5DWBdiAU F2OMJdzdUlcYDeOHivXJ8AWFXpkhUjAzBnRIKNRGz+Pe8TAK1kg6LzZZoxZfGzQO1psb7WAZwDJtMzF5 V9wEEdN1N2FVtsHn9SMWJqVYRsOgqcTCEKLCevCI1PFW7yeoZ4QD1IwVQuUEVqMDXgkRJyNOy6R88rpA SkJKzsUA7XPER+Osman+Ap5RNDOoIXSsIQEjCoQkNGVS WgWtQ8WjF4YVz4CvV5FaZC60kJfigdCnZPbgUK0PKN3fGPZjAHEQNQ5YbZOtoY6axiNqIEDnQIAKAvNr M40vqFKyLVPaSIAuEYTmCj3ICJLgL1OmfjVhsYvzljXlVYIkMXZDOL0CPPlmtwSbxRDoyYorXH84aAts CP1ZLr0AHjVyLK6xov7ZdNNlCu3FWDMxOX5FPCZhJQ TeVLDxDWT3VJNoNjLsZHraCVLhDWFzCKP3DOLdXFZfQE0FZwIkIRPrJlomGqTmKLKhIKNkhy5FEEDfUC PhEZg9INDlESUbAJUgLQnqIAFbNXNtGQS3MIXjOIAtCI3KDiSeSFDyZIIxDkafVHMzXMRobi4BTCXcXK JxZzT1SXVjAIMnBNOrEYkyCFRtBSY4MoBaVUMjVUOr RP9HIlWcOMIfYBT5YOUqJBSpYRUnvj9LDFUvNIReQKryQQLtQYFxCJOjKKzoLNInAII7QVFtSRNrKPAk TR6IAzUlYOShTLGbBNEkZMSiIGQzdl4USSQbUCLwMCF8YoWvFILyAXXkARrwHTAcJVDaJqIxNMIoHNBl OQ0OOnAeQKFySXM8DMjcZMHsEXBxcc8BGCBjQRNyAl qxKxToVLFyZIDjLAumLEYcWWWgYzWvOIZwXPFyJL2OExQbSOCkXDK5EgUcRROxXKHizf2GOGCoRISrRI L5SXOqULLfGTKgIKulXCTgKUN7CNVrRWZlVBGgEW5XUiYnLBAiAIAqHMfeXYAlZMHoqr2NAQUnKMDyIB F4YBQeNEIeOZUjYOkbHXIgFWB7Rmw2SXInYEMfNI1P BsCtEPBqMlqnAYJyKURdFZJspc7SASMsQGJeFhWtSfIdZFAfEOBgCTgcATYtPSP6QEQfKVWuLGClHB3E AhEnBHSdRbb6BBdmHRHnRCTimg0SZADiXSHzHCFxQlPrJVJjHRDyBZgkQSRxMHW0UFSnQSZoPWLeGS4P StCjXCSrRfg5TLooPOKjQFAvrw9OIRBmWHXvFSZaND GyEZTjAVKfPMadVQKuAPUcBFp9YVWuLMBsOO5OXaFvWCIyQlA0PLtwMOFwZFIaqq0GUGHwNFRvAOPlKG QiVGSoONCmOVy6tcKhyALuAJt5OM1PR0GkggCjCsGKZd3Rj381HZBnDJKmEd2MM6xkBu9aHRAoSOSPDm 3PMCn0Izh5ILEzDnqcEfFaWtBzIfI6EwX2OlWqL8Z2 Azo9OFK+JWnlBTHlQvMvJPBnXOF8NLOlEpm2FZr4SYPmVsfkJFU7Mb9vLEWGLx9+DQpzdGFydHhyZWYN JtIqNbX4NRjbMJCCMd3P ID Date Data Source [id number] 12/18/2020 11:39:07 AM EDT [facility] Name Value Range Interpretation Code Description Data Pat rce(s) Supporting Document(s) Progress Note [facility] BPIBGr4lBeEUTcRa50/HCZyyLDVyx7CaHZmoBDj2YAiqXEPiI3HcVKA3qY6bCPS2XEeAIdVkJvYxULUu lbm YyVvyJIcMuSMFnMhiWJnDoMLjsCossfXAtGX8UuTM2GESlH85zRUVuDGVkU6RlKSD1OXI+Vv5KQBCelC YiSZ5WVtoY0Ojsa7h4IR7+YP+OPJDvYYwXESIEDsFNWxZ6Hbeayk3WcmPDat7yFosuy037+tpa8vqjDv fKRSCeSYpA2IZW1/LweLyjEsayf/+ktpMde3AQ1/qj 9pClixtHT9CiieQsdkAQWUh6MZgZYdpT+qPkXz/we5/oa3EQgbx3Vm68IF5vp8Tdeti/0ln0pxg/M55q 8cQWKHnByZQ7aRBKHugyj2uc27aWReSjqcjlEmIW6dqX9yM4LqW6YMgQ1ocd7Nbfxsz5NWa4g9vRjfCG vF1EtUAIDwKsDOHmKQHyOoD+tLutT4ggMo89LtGmxS ZfL/m8VXCsj9C6n+JjIJkgEVupUZn7Ihl13mftelzIKFe3WW61sH2s4d9pvRN9pjnoxOd1OtYpKLpBwg gAkKsdNZWTnw4K6Kgkz1Wcd78MXBhN0XfYA5G1vHvLt7hpVyS14ZD8UE69ZdCGHy/cSJezbYqt9HaMJ7 7IVWEYklpLIaRfY76Sm7vlrq6A7ku5eB49jSjoN4b4 YtmTGpOAyvoPlq7K/7hvLDicb4iz37RV6Il02Qqkdg8U3vDK9+AxlNWlTSi3id3tdnNwNPSTl9wpy6Dv a1j4StZT2lD+eWSoFAbjHQihEyNHXHeoR9CaRVpfzaASdY94FiZy2fzQsVW8PkyaQTAxmQZUgVAqVE2M Xd8p8dmtqxb6nnsYWC6C9jy0epfXzPd2vq1rp4v27Q djFYobtX9spxdcjpuTuguOroW2OOqMFcZ3lFlMAchvmFbTCzBsoSyRq8NJLlC76CLwKBZ9KAo73iQCq6 9y+gcF0BBIHjWC+4X1Q/UPf4I8zQUthF9ubgBSH0UHSvmWwYaA/h1R4jxjOTcFOhb21AbOXUcEbfARNY hOBYSFVWQlmhBpbnXKcP0vmCkGpSCOVGZfFBSEaK6h [file] ICAgICAgICAgICAgICAgICAgICAgICAgICAgICAgIC RvWIEpJOVbMYRxFHNvKNGnFQKdELUsEIDgLKCgHEVeMG5QJJBsLGFvSTWxTXEgVQYnCFRsMVGfCCRuVP AgICAgICAgICAgICAgICAgICAgICAgICAgICAgICAgICAgICAgICAgICAgICAgICAgICAgICAgICAgIC CnLQHvCGEvFOOlKNXcWW5DRIUoIPCaNVJfDTLlKIKh ICAgICAgICAgICAgICAgICAgICAgICAgICAgICAgICAgICAgICAgICAgICAgICAgICAgICAgICAgICAg ZQKcLAFnHUVmFIPwZKMkPEZbCEHtCPDzQK9LXVCyQZCrDQDlJOZnQJLxXHKjWRUvLAYdOPWzVMTiAUMl ICAgICAgICAgICAgICAgICAgICAgICAgICAgICAgIC FuZTDbPJSlVNLlFPLxUBKpWHPdPDZoKRQxEIZsUCBxVRVdMT2DOKAvBQNgEUDbJWBrJFTzYJGnQTMsSI AgICAgICAgICAgICAgICAgICAgICAgICAgICAgICAgICAgICAgICAgICAgICAgICAgICAgICAgICAgIC PmNOQuVGIgYTXeCBBoHWPaZQ2ZPZNcQDOrPVDdSCXz ICAgICAgICAgICAgICAgICAgICAgICAgICAgICAgICAgICAgICAgICAgICAgICAgICAgICAgICAgICAg AKCjTTSqNRZlXOFfAOHiOWCnVVLnVWXaTHRdUI7OWGMzUCKhZWJdNCQtMKJaRIOsFSDcXIHzHFDqLIDk ICAgICAgICAgICAgICAgICAgICAgICAgICAgICAgIC YrYQNdLKVuZUFyBXBsECQfCHKqQVXxYYLuFCXhLKLiJRVgOYNeBX7GGNIkBNLjCPDbCTVxYHZlQYOoYS AgICAgICAgICAgICAgICAgICAgICAgICAgICAgICAgICAgICAgICAgICAgICAgICAgICAgICAgICAgIC QyUJVcIDEbDJBlVEZsLLVbZOTkPE3KCHKaKHXhTXPg ICAgICAgICAgICAgICAgICAgICAgICAgICAgICAgICAgICAgICAgICAgICAgICAgICAgICAgICAgICAg WSUuULKjXOKaZCYmLHZyYQZbSERiIUXhCMBhXKSpOS1KRJZqRYLsSXGrKUUbRPFmNRTgWRUrVLEgDAHr ICAgICAgICAgICAgICAgICAgICAgICAgICAgICAgIC TwJTUwADImUYQgJQSuTGElQHEwIFNoBQDoDTMcUNBwWFCkACAiAGGeIF0YXP33vTLtm9Q6CNElQZ3ijy c/Ou8BYFvknjUhnBPbWC9CFkWeSE8yng4RIlZvXC4zoj5OZVuLHiOiQ2G6sUAeHQGgZNOUVrTeV39tEV tmLh93MXnlITQpUbZjBWl8Uo1BAiMuW7fyVCSzIdK7 BHZqGfXlCRosPB0De5ThyQGfZXe+Wp7VDS8yx2NgATzfSKHjLX4fzo1QIMeUDiCzX8KvnfN9VHJoMWRg Ud3TAQDaSEDphRUsBFOqORXDQlIcM5AobP82MIKAYf0+XXgsdvZvRdsWWcKsCQQfo0SoIHy2BH6RTJHp TXl2qLLvXFMlO2Aff4YqQr45EHMqGfasPZ9dGNUZJS CyHELWIVgpBUHzLGJOGJP1MLHnFi8pNKGzFRBjExNgKPATGR6MTHFjABCsgJDpFAPkRFCVLS5OFYpiBL J9VYMmtcGgjUIeYFbaEN2EWQEbmdZqVRczXWBJVOl+Ob8VSB4kk3BhHLaiBRJyNC4toa6OEQpDZsFlZ7 K5yIAjI0S9JUmaZa0UHNMiJBAiXHzlZZXYIJvuVZ0E XX6nosS1RV9VzPIaJCQsLVWorPZzBMc9O17dsBTlLHhwDG0ZHKM+Osman+Rf9XZKUcDEEkEJYbFbNrWUKY NkPgB0KsY1XJb9FxF3DnZW90dXsperArQKncDE0ZNH7zYYHiSMBKQL8GeRAmrA0ztnUsNRRzSOEDXnDa U79pfSOxBAQiJAE7SJXuMt0KYWVjN9XzstBztRyqzv MuLOObSVKXCH3QIVuijcLtqOFtnHzbBP01mCruWY9UZp7KZsMdFE0xze4JjKVnSu9RGYYsTm4HROKqFE CfTMDzCLY0WHPcXmClSVkqEZUqOSAnAUN3UWEpZNVwZO9EZxSaQFBmJCrmKODdBSWxJBJfad6HQUUgXD SyGCRlWrHoWMOqPEZtKIiuOTKzVKEwKOP7AFUlCORl ZG8LYcYqDUPjGQUdSlXwXQKxXGDloa2UZDBlFNObSqJvHSLdGDKjFGEfPHxrXSJiBBGkVqg6KSHqJUIb VT1AXwLcKPNtEJR4JFSzGPXyNYIsca6BSMRiTCMvNpU9JZRhANNlQOYtZZcfPSBiMWD9YfW1NSVuZYDq QX7YNeCoHWPtFEU9ArHcXOGuBSCvlc2BKPNeXNVdMW SdQxYpFQDgABMmOUcgRXJlRVW1ZiytJTXdOZLcAQ8UGnNqJFAbZLZ9IOuoYBHzORDzwk0XXIEoXGMdGt d7PiWyFQAyFTPnESefNYSrQKA0SBB7TAFjOPYhQH9NAvXxUMLdZCbjXINgSYGoSMAefe3YOJSeWUPrZc F7TyBfEEGtEXWkIZzzCCEtHAJ5AJJdECObVPIdBD3R ZwSvWNNuCPjnSORlRWVcMGNayf2DSOBsFSPqGEN5EzRoRYIzBTToBYy2kyCmmKYrLKh9UJ0RN0XwxlUs EhDTHx9Of006SVJaATUuPe4LP7koGk2cHFRlJXDDYg7AQRw9IWW4DkV1SQZfVzo0UOFgHnRoZDFkSOr5 MXNhCJC6RdS+EStuIIH0PnF2BNIjZUT7KvX2JLIgFr EgZqEgWXUtKCwnAe5pYEHAGe7+FLhgoLZfkZqbCQIUKsO4WOq5SAuxFOHDEc8F ID Date Data Source [id number] 12/18/2020 11:39:00 AM EDT [facility] Name Value Range Interpretation Code Description Data Pat rce(s) Supporting Document(s) SARS-CoV-2 RNA 2019 nCoV Real-Time RT-PCR: NOT DETECTED [facility] This lab was ordered by [facility] and reported by [facility]. ID Date Data Source [id number] 12/18/2020 08:28:21 PM EDT [facility] Name Value Range Interpretation Code Description Data Pat rce(s) Supporting Document(s) Specimen source [Identifier] of Unspecified specimen [facility] SARS-CoV-2 RNA 2019 nCoV Real-Time RT-PCR: NOT DETECTED [facility] Assay Performed [facility] Patients first test for [facility] Patient employed in healthcare setting [facility] Patient has symptoms related to [facility] When did you start to experience these symptoms [Date and time] [Phen X] [facility] Patient was hospitalized because of this condition [facility] patient was admitted to ICU for [facility] Patient resides in a congregate care setting [facility] status [facility] ID Date Data Source [id number] 12/18/2020 10:57:00 AM EDT [facility] ([facility]) Name Value Range Interpretation Code Description Data Pat rce(s) Supporting Document(s) aPTT in Platelet poor plasma by Coagulation assay 24.7 s 24.0-33. 0 [facility] ([facility]) ID Date Data Source [id number] 12/18/2020 10:57:00 AM EDT [facility] ([facility]) Name Value Range Interpretation Code Description Data Pat rce(s) Supporting Document(s) Leukocytes [#/volume] in Blood by Automated count 5.7 10*3/uL 4-10 [facility] ([facility]) Hematocrit [Volume Fraction] of Blood by Automated count 47.3 % 4 1-53 [facility] ([facility]) Erythrocytes [#/volume] in Blood by Automated count 5.44 10*6/uL 4.6- 6.1 [facility] ([facility]) Hemoglobin [Mass/volume] in Blood 16.2 g/dL 13.5-18 [facility] ([facility]) Erythrocyte mean corpuscular volume [Entitic volume] by Auto mated count 86.9 fL 80-96 [facility] ([facility]) Erythrocyte mean corpuscular hemoglobin concentration [Mass/volume] by Automated count 34.2 g/dL 32.0-36.0 [facility] ([facility]) Erythrocyte mean corpuscular hemoglobin [Entitic mass] by Automated count 29.8 pg 27-33 [facility] ([facility]) Erythrocyte distribution width [Ratio] by Automated count 13.6 % 11.5-14.5 [facility] ([facility]) Platelets [#/volume] in Blood by Automated count 213 10*3/uL 150-400 [facility] ([facility]) Differential cell count method - Blood Laboratory test result [facility] ([facility]) Neutrophils/100 leukocytes in Blood by Automated count 64 % [facility] ([facility]) Lymphocytes/100 leukocytes in Blood by Automated count 25 % [facility] ([facility]) Monocytes/100 leukocytes in Blood by Automated count 6 % [facility] ([facility]) Eosinophils/100 leukocytes in Blood by Automated count 4 % [facility] ([facility]) Neutrophils [#/volume] in Blood by Automated count 3.71 10*3/uL 1.8-7 .0 [facility] ([facility]) Basophils/100 leukocytes in Blood by Automated count 1 % [facility] ([facility]) Lymphocytes [#/volume] in Blood by Automated count 1.44 10*3/uL 1.2-4 .0 [facility] ([facility]) Eosinophils [#/volume] in Blood by Automated count 0.22 10*3/uL 0-0.5 [facility] ([facility]) Monocytes [#/volume] in Blood by Automated count 0.34 10*3/uL 0-0.8 [facility] ([facility]) Basophils [#/volume] in Blood by Automated count 0.04 10*3/uL 0-0.2 [facility] ([facility]) Nucleated erythrocytes/100 leukocytes [Ratio] in Blood by Automated count 0 /100{WBCs} 0-0 [facility] ([facility]) ID Date Data Source [id number] 12/18/2020 11:43:[address] [facility] Name Value Range Interpretation Code Description Data Pat rce(s) Supporting Document(s) Leukocytes [#/volume] in Blood by Automated count 5.7 10*3/uL 4-10 [facility] Erythrocytes [#/volume] in Blood by Automated count 5.44 10*6/uL 4.6- 6.1 [facility] Hemoglobin [Mass/volume] in Blood 16.2 g/dL 13.5-18 [facility] Hematocrit [Volume Fraction] of Blood by Automated count 47.3 % 4 1-53 [facility] Erythrocyte mean corpuscular volume [Entitic volume] by Auto mated count 86.9 fL 80-96 [facility] Erythrocyte mean corpuscular hemoglobin [Entitic mass] by Automated count 29.8 pg 27-33 [facility] Erythrocyte mean corpuscular hemoglobin concentration [Mass/volume] by Automated count 34.2 g/dL 32.0-36.0 [facility] E[facility]th[facility] distribution width [Ratio] by Automated count 13.6 % 11.5-14.5 [facility] Platelets [#/volume] in Blood by Automated count 213 10*3/uL 150-400 [facility] Differential cell count method - Blood [facility] Neutrophils/100 leukocytes in Blood by Automated count 64 % [facility] Lymphocytes/100 leukocytes in Blood by Automated count 25 % [facility] Monocytes/100 leukocytes in Blood by Automated count 6 % [facility] Eosinophils/100 leukocytes in Blood by Automated count 4 % [facility] Basophils/100 leukocytes in Blood by Automated count 1 % [facility] Neutrophils [#/volume] in Blood by Automated count 3.71 10*3/uL 1.8-7 .0 [facility] Lymphocytes [#/volume] in Blood by Automated count 1.44 10*3/uL 1.2-4 .0 [facility] Monocytes [#/volume] in Blood by Automated count 0.34 10*3/uL 0-0.8 [facility] Eosinophils [#/volume] in Blood by Automated count 0.22 10*3/uL 0-0.5 [facility] Basophils [#/volume] in Blood by Automated count 0.04 10*3/uL 0-0.2 [facility] Nucleated erythrocytes/100 leukocytes [Ratio] in Blood by Automated count 0 /100{WBCs} 0-0 [facility] ID Date Data Source [id number] 12/18/2020 11:53:49 AM EDT [facility] Name Value Range Interpretation Code Description Data Pat rce(s) Supporting Document(s) aPTT in Platelet poor plasma by Coagulation assay 24.7 s 24.0-33. 0 [facility] ID Date Data Source [id number] 12/05/2020 03:19:00 PM EDT [facility] ([facility]) Name Value Range Interpretation Code Description Data Pat rce(s) Supporting Document(s) Appearance, Urine Laboratory test result Normal (applies to non-numeric results) [facility] ([facility]) Color, Urine Laboratory test result Normal (applies to non -numeric results) [facility] ([facility]) PH,Urine 6.0 units 5.0-9.0 Normal (applies to non-numeric resul ts) [facility] ([facility]) Specific Burr Urine Auto 1.017 1.002-1.035 Norm al (applies to non-numeric results) [facility] ([facility]) Glucose, Urine (Ua) Auto Laboratory test result Normal (applies to non-numeric results) [facility] ([facility]) Protein, Urine Auto Laboratory test result Alla l (applies to non-numeric results) [facility] ([facility]) Ketone, Urine Auto Laboratory test result Normal (applies to non-numeric results) [facility] ([facility]) Urobilinogen, Urine Auto 0.2 mg/dL 0.0-2.0 Normal (applies to non-numeric results) [facility] ([facility]) Nitrite, Urine Auto Laboratory test result Alla l (applies to non-numeric results) [facility] ([facility]) Bilirubin, Urine Auto Laboratory test result Nor mal (applies to non-numeric results) [facility] ([facility]) Leukocyte Esterase, Urine Auto Laboratory test result Normal (applies to non- numeric results) [facility] ([facility]) Blood, Urine Blood Laboratory test result Normal (applies to non-numeric results) [facility] ([facility]) RBC, Urine Auto 1 /HPF 0-3 Normal (applies to non-numeric results) [facility] ([facility]) Bacteria, Urine Auto Laboratory test result Norm al (applies to non-numeric results) [facility] ([facility]) WBC, Urine Auto 0 /HPF 0-3 Normal (applies to non-numeric results) [facility] ([facility]) Squamous Epithelial Cell Ur AU 0 /HPF 0-6 N ormal (applies to non-numeric results) [facility] ([facility]) Mucus, Urine Laboratory test result Normal (applies to non -numeric results) [facility] ([facility]) Hyaline Cast, Urine Auto 0 /LPF 0-1 Normal (applies to non -numeric results) [facility] ([facility]) ID Date Data Source [id number] 12/05/2020 03:19:00 PM EDT [facility] ([facility]) Name Value Range Interpretation Code Description Data Pat rce(s) Supporting Document(s) Bacteria identified in Urine by Culture Laboratory test result Normal (applies to non-numeric results) [facility] ([facility]) FULL REPORT IN LAB NOTES ([facility] and [facility] ). NO GROWTH ID Date Data Source [id number] 12/05/2020 03:19:00 PM EDT [facility] ([facility]) Name Value Range Interpretation Code Description Data Pat rce(s) Supporting Document(s) Prothrombin Time 12.9 s 12.5-14.3 Normal (applies to non-numeric results) [facility] ([facility]) Inr 0.96 Normal (applies to non-numeric resul ts) [facility] ([facility]) THERAPUTIC HUMAN INR VALUES INDICATIONS NORMAL RANGES PROPHYLAXIS/TREATMENT OF: VENOUS THROMBOSIS 2.0-3.0 PULMONARY EMBOLISM 2.0-3.0 PREVENTION OF SYSTEMIC EMBOLISM FROM: TISSUE HEART VALVES 2.0-3.0 ACUTE MYOCARDIAL INFARCTION 2.0-3.0 VALVULAR HEART DISEASE 2.0-3.0 ATRIAL FIBRILLATION 2.0-3.0 MECHANICAL VALVES(HIGH RISK) 2.5-3.5 RECURRENT MYOCARDIAL INFARCTION 2.5-3.5 Partial Thromboplastin Time 24.3 s 24.2-38.5 Below low normal [facility] ([facility]) ID Date Data Source [id number] 12/05/2020 03:19:00 PM EDT [facility] ([facility]) Name Value Range Interpretation Code Description Data Pat rce(s) Supporting Document(s) Glucose, Fasting 107 mg/dL 70-100 Above high normal [facility] ([facility]) Creatinine For GFR 0.83 mg/dL 0.70-1.30 Normal (applies to non -numeric results) [facility] ([facility]) Blood Urea Nitrogen 19 mg/dL 7-18 Above high normal [facility] ([facility]) Sodium Level 140 meq/L 136-145 Normal (applies to non-numeric res ults) [facility] ([facility]) Glomerular Filtration Rate Laboratory test result Normal (applies to non- numeric results) [facility] ([facility]) <content>Units are mL/min/1.73 m2</content>
<content></content>
<content>Chronic Kidney Disease Staging per NKF:</content>
<content></content>
<content>Stage I & II GFR >=60 Normal to Mildly Decreased</content>
<content>Stage III GFR 30- 59 Moderately Decreased</content>
<content>Stage IV GFR 15-29 Severely Decreased</content>
<content>Stage V GFR <15 Very Little GFR Left</content>
<content>ESRD GFR <15 on LABORER CUTTING TOOL</content>
<content></content> Potassium Serum 4.0 meq/L 3.5-5.1 Normal (applies to non-numeric results) [facility] ([facility]) Chloride Level 103 meq/L 98-107 Normal (applies to non-numeric r esults) [facility] ([facility]) Anion Gap 5 meq/L 8-16 Below low normal [facility] ( [facility]) Carbon Dioxide Level 32 meq/L 21-32 Normal (applies to non-num jael results) [facility] ([facility]) Calcium Level 9.5 mg/dL 8.5-10.1 Normal (applies to non-numeric re sults) [facility] ([facility]) Ast/Sgot 20 U/L 7-37 Normal (applies to non-numeric resul ts) [facility] ([facility]) Alt/SGPT 32 U/L 12-78 Normal (applies to non-numeric resul ts) [facility] ([facility]) Alkaline Phosphatase 73 U/L 45-117 Normal (applies to non-num jael results) [facility] ([facility]) Bilirubin,Total 0.5 mg/dL 0.2-1.0 Normal (applies to non-numeric results) [facility] ([facility]) Albumin 4.0 GM/DL 3.2-5.2 Normal (applies to non-numeric resul ts) [facility] ([facility]) Total Protein 7.6 GM/DL 6.4-8.2 Normal (applies to non-numeric re sults) [facility] ([facility]) Albumin/Globulin Ratio 1.1 Normal (applies to non-n umeric results) [facility] ([facility]) ID Date Data Source [id number] 12/05/2020 03:19:00 PM EDT [facility] ([facility]) Name Value Range Interpretation Code Description Data Pat rce(s) Supporting Document(s) Red Blood Count 5.51 10 4.30-6.10 Normal (applies to non-numeric results) [facility] ([facility]) White Blood Count 5.9 10 4.0-10.0 Normal (applies to non-numeri c results) [facility] ([facility]) Hematocrit 47.9 % 42.0-52.0 Normal (applies to non-numeric resul ts) [facility] ([facility]) Hemoglobin 16.4 g/dL 13.5-17.5 Normal (applies to non-numeric resul ts) [facility] ([facility]) Mean Corpuscular Volume 86.9 fl 80.0-96.0 Normal ( applies to non-numeric results) [facility] ([facility]) Mean Corpuscular HGB Conc 34.2 g/dL 32.0-36.5 Normal (applies to non-numeric results) [facility] ([facility]) Mean Corpuscular Hemoglobin 29.8 pg 27.0-33.0 Norm al (applies to non-numeric results) [facility] ([facility]) Red Cell Distribution Width 12.5 % 11.5-14.5 Norm al (applies to non-numeric results) [facility] ([facility]) Platelet Count, Automated 218 10 150-450 Normal (applies to non-numeric results) [facility] ([facility]) Neutrophils % 63.3 % 36.0-66.0 Normal (applies to non-numeric re sults) [facility] ([facility]) [place] % 5.5 % 2.0-8.0 Normal (applies to non-numeric resul ts) [facility] ([facility]) Lymph % 26.2 % 24.0-44.0 Normal (applies to non-numeric resul ts) [facility] ([facility]) Eos % 4.1 % 0.0-3.0 Above high normal [facility] ([facility]) Immature Granulocyte % 0.2 % 0-3.0 Normal (applies to non-n umeric results) [facility] ([facility]) Baso % 0.7 % 0.0-1.0 Normal (applies to non-numeric resul ts) [facility] ([facility]) Nucleated Red Blood Cell % 0.0 % 0-0 Normal (applies to n on-numeric results) [facility] ([facility]) Neutrophils # 3.7 10 1.5-8.5 Normal (applies to non-numeric re sults) [facility] ([facility]) Lymph # 1.5 10 1.5-5.0 Normal (applies to non-numeric resul ts) [facility] ([facility]) [place] # 0.3 10 0.0-0.8 Normal (applies to non-numeric resul ts) [facility] ([facility]) Eos # 0.2 10 0.0-0.5 Normal (applies to non-numeric resul ts) [facility] ([facility]) Baso # 0.0 10 0.0-0.2 Normal (applies to non-numeric resul ts) [facility] ([facility]) ID Date Data Source [id number] 12/05/2020 11:45:00 AM EDT [facility] ([facility]) Name Value Range Interpretation Code Description Data Pat rce(s) Supporting Document(s) EKG Laboratory test result [facility] ([facility]) ID Date Data Source [id number] 10/31/2020 09:41:39 AM EDT [facility] Name Value Range Interpretation Code Description Data Pat rce(s) Supporting Document(s) Progress Note [facility] [id number] [file] [id number] ID Date Data Source [id number] 06/08/2020 11:10:00 AM EDT [facility] ([facility]) Name Value Range Interpretation Code Description Data Pat rce(s) Supporting Document(s) HLA-B27 related Ag [Presence] Laboratory test result Normal (applies to non- numeric results) [facility] ([facility]) HLA-B*27 Negative B27 allele interpretation for all loci based on IMGT/HLA database version 3.38 This test was developed and its performance characteristics determined by [facility]. It has not been cleared or approved by the Food and Drug Administration. [facility] CLIA ID Number [id number] . This test was performed using PCR (Polymerase Chain Reaction)/SSOP (Sequence Specific Oligonucleotide Probes) technique. SBT (Sequence Based Typing) and/or SSP (Sequence Specific Primers) may be used as supplemental methods when necessary. Please contact [facility] Customer Service at if you have any questions. . Director of [facility] Dr Kurt Pichardo, PhD ID Date Data Source [id number] 06/08/2020 11:10:00 AM EDT [facility] ([facility]) Name Value Range Interpretation Code Description Data Pat rce(s) Supporting Document(s) Smiths Antibody Laboratory test result 0.0-0.9 Normal (a pplies to non-numeric results) [facility] ([facility]) CIVIL ESTIMATOR Antibody 0.2 AI 0.0-0.9 Normal (applies to non-numeric res ults) [facility] ([facility]) ID Date Data Source [id number] 06/08/2020 11:10:00 AM EDT [facility] ([facility]) Name Value Range Interpretation Code Description Data Pat rce(s) Supporting Document(s) Kassandra (Hep2) Laboratory test result Normal (applies to non-n umeric results) [facility] ([facility]) <content>Negative <1:80</content>
<content>Borderline 1:80</content>
<content>Positive >1:80</content>
<content>Performed at: [facility]</content>
<content>[address], [place] [id number]</content>
<content>Supervisor Mixing: India Yeung MD, Phone: [phone]</content>
<content>Performed at: [address] [place] [address] [facility]</content>
<content>[address], [place] [id number]</content>
<content>Supervisor Mixing: Kurt Pichardo PhD, Phone: [phone]</content>
<content>Performed at: [facility]</content>
<content>[address], [place] [id number]</content>
<content>Supervisor Mixing: Ana Mahajan MD, Phone: [phone]</content>
<content></content> ID Date Data Source [id number] 06/08/2020 11:10:00 AM EDT [facility] ([facility]) Name Value Range Interpretation Code Description Data Pat rce(s) Supporting Document(s) Laboratory test finding (navigational concept) Laboratory test r esult Normal (applies to non-numeric results) [facility] ([facility]) ID Date Data Source [id number] 06/08/2020 11:10:00 AM EDT [facility] ([facility]) Name Value Range Interpretation Code Description Data Pat rce(s) Supporting Document(s) Rheumatoid factor [Units/volume] in Serum or Plasma Laboratory t est result Normal (applies to non-numeric results) [facility] ([facility]) C reactive protein [Mass/volume] in Serum or Plasma by High sensitivity method Laboratory test result 0.00-0.30 Normal (applies to non-numeric results) [facility] ([facility]) Erythrocyte sedimentation rate by Westergren method 1 mm/hr 0-15 Normal (applies to non-numeric results) [facility] ([facility]) Cyclic citrullinated peptide IgG Ab [Units/volume] in Serum or Plasma 7 units 0-19 Normal (applies to non-numeric results) [facility] ([facility]) <content>Negative <20</con tent>
<content>Weak positive 20 - 39</content>
<content>Moderate positive 40 - 59</content>
<content>Strong positive >59</content>
<content></content> Procedure Social History Code Duration Value Status Description Data Source(s ) Alcohol intake 12/21/2020 12:00:00 AM EDT Current drinker of al cohol (finding) completed Current drinker of alcohol (finding) [facility] Tobacco use and exposure 12/21/2020 12:00:00 AM EDT Current user co mpleted Current user [facility] Smoking 12/21/2020 12:00:00 AM EDT Former smoker completed Former smoker [facility] Smoking 12/05/2020 12:00:00 AM EDT Quit completed Quit [facility] ([facility]) Alcohol intake 10/23/2020 12:00:00 AM EST Current drinker of al cohol (finding) completed Current drinker of alcohol (finding) [facility] Vital Signs ID Date Data Source [id number] Name Value Range Interpretation Code Description Data Source(s) Heart rate 104 /min 104 /min [facility] ([facility]) Diastolic blood pressure 79 mm[Hg] 79 mm[Hg] [facility] ([facility]) Respiratory rate 18 /min 18 /min [facility] ( [facility]) Body height 72 [in_i] 72 [in_i] [facility]) 6'0" Oxygen saturation in Arterial blood by Pulse oximetry 98 % 98 % [facility] ([facility]) Body temperature 98.2 [degF] 98.2 [degF] [facility] ([facility]) Body weight 240.00 [lb_av] 240.00 [lb_av] [facility] ([facility]) Body mass index (BMI) [Ratio] 32.5 kg/m2 32.5 k g/m2 [facility] ([facility]) Systolic blood pressure 124 mm[Hg] 124 mm[Hg] [facility]) Body temperature 98.1 [degF] 98.1 [degF] [facility] ([facility]) Body weight 240.00 [lb_av] 240.00 [lb_av] MEDEN T ([facility], [facility]) Body height 72 [in_i] 72 [in_i] MEDENT ([facility]) 6'0" Body mass index (BMI) [Ratio] 32.5 kg/m2 32.5 k g/m2 MEDENT ([facility], [facility]) Diastolic blood pressure 76 mm[Hg] 76 mm[Hg] MEDENT ([facility], [facility]) Heart rate 75 /min 75 /min MEDENT ([facility], [facility]) Respiratory rate 16 /min 16 /min MEDENT ( [facility], [facility]) Oxygen saturation in Arterial blood by Pulse oximetry 98 % 98 % MEDENT ([facility], [facility]) Systolic blood pressure 115 mm[Hg] 115 mm[Hg] [facility] Systolic blood pressure 150 mm[Hg] 150 mm[Hg] [facility] Diastolic blood pressure 68 mm[Hg] 68 mm[Hg] MEDENT ([facility]) Body height 71.8 [in_i] 71.8 [in_i] [facility] 5'11.80" Body weight 245.00 [lb_av] 245.00 [lb_av] MEDEN T ([facility]) Body mass index (BMI) [Ratio] 33.4 kg/m2 33.4 k g/m2 MEDENT ([facility]) Heart rate 120 /min 120 /min [facility] Oxygen saturation in Arterial blood by Pulse oximetry 96 % 96 % [facility]) [place] body weight 172 [lb_av] 172 [lb_av] MEDEN T ([facility]) Respiratory rate 20 /min 20 /min [facility] Body temperature 98.7 [degF] 98.7 [degF] MEDENT ([facility]) Oxygen saturation in Arterial blood by Pulse oximetry 98 % 98 % [facility]) Body temperature 97.1 [degF] 97.1 [degF] MEDENT ([facility], [facility]) Body weight 235.00 [lb_av] 235.00 [lb_av] MEDEN T ([facility], [facility]) Body height 72 [in_i] 72 [in_i] MEDENT ([facility]) 6'0" Body mass index (BMI) [Ratio] 31.9 kg/m2 31.9 k g/m2 MEDENT ([facility]) Heart rate 123 /min 123 /min MEDENT ([facility], [facility]) Respiratory rate 18 /min 18 /min MEDENT ( [facility], [facility]) Systolic blood pressure 128 mm[Hg] 128 mm[Hg] M EDENT ([facility]) Diastolic blood pressure 90 mm[Hg] 90 mm[Hg] MEDENT ([facility]) Systolic blood pressure 142 mm[Hg] 142 mm[Hg] [facility] Diastolic blood pressure 90 mm[Hg] 90 mm[Hg] MEDENT ([facility]) Body height 71.8 [in_i] 71.8 [in_i] MEDENT ([facility]) 5'11.80" Body weight 226.38 [lb_av] 226.38 [lb_av] MEDEN T ([facility]) Body mass index (BMI) [Ratio] 30.9 kg/m2 30.9 k g/m2 MEDENT ([facility]) Heart rate 97 /min 97 /min MEDENT ([facility]) Respiratory rate 18 /min 18 /min [facility] ( [facility]) Body temperature 98.8 [degF] 98.8 [degF] MEDENT ([facility]) Oxygen saturation in Arterial blood by Pulse oximetry 99 % 99 % [facility] ([facility]) [place] body weight 172 [lb_av] 172 [lb_av] MEDEN T ([facility]) Patient Treatment Plan of Care Planned Activity Planned Date Details Description Data Source (s) tizanidine 2 MG Oral Tablet 12/21/2020 11:19:49 AM [facility] Acetaminophen 325 MG Oral Tablet 12/21/2020 11:14:41 AM [facility] Oxycodone Hydrochloride 5 MG Oral Tablet 12/21/2020 11:14:41 AM [facility] Oxycodone Hydrochloride 5 MG Oral Tablet 12/21/2020 11:14:41 AM [facility] ondansetron (ZOFRAN) injection 4 mg 12/21/2020 11:14:41 AM [facility] ondansetron (ZOFRAN) injection 4 mg 12/21/2020 11:13:08 AM [facility] tizanidine 2 MG Oral Capsule 12/21/2020 12:00:00 AM [facility] Ondansetron 4 MG Disintegrating Oral Tablet 12/21/2020 12:00:00 AM [facility] Docusate Sodium 100 MG Oral Capsule 12/21/2020 12:00:00 AM [facility] Oxycodone Hydrochloride 5 MG Oral Tablet 12/21/2020 12:00:00 AM [facility] Acetaminophen 325 MG Oral Tablet 12/21/2020 12:00:00 AM [facility] Diclofenac Sodium 75 MG Delayed Release Oral Tablet 07/27/20 18 12:00:00 AM [facility] Omeprazole 20 MG Delayed Release Oral Capsule 07/27/2018 12:00:00 A M [facility]
[2021-05-31] MEDS ORDERED: POTA10CA32 (12:10)
[2021-05-31] MEDS ORDERED: ESCITALOPRAM (12:10)
--- OUTSIDE RECORDS SUMMARY | 2021-05-31 13:06 | CCD ---
Author Author [facility] Organization [facility] Address Unknown Phone Unavailable Care Team Providers Care Exhaust Emissions Automotive Technician Name Role Phone Selam Medina STEEL FABRICATOR Unavailable Unavailable Medina Selam STEEL FABRICATOR Unavailable Unavailable Medina Selam STEEL FABRICATOR Unavailable Unavailable Medina, Selam STEEL FABRICATOR Unavailable Unavailable Medina, Selam STEEL FABRICATOR Unavailable Unavailable Medina, Selam STEEL FABRICATOR Unavailable Unavailable Medina, Selam STEEL FABRICATOR Unavailable Unavailable Medina, Selam STEEL FABRICATOR Unavailable Unavailable Medina, Selam STEEL FABRICATOR Unavailable Unavailable Medina, Selam STEEL FABRICATOR Unavailable Unavailable Medina, Selam STEEL FABRICATOR Unavailable Unavailable Medina, Selam STEEL FABRICATOR Unavailable Unavailable Medina, Selam STEEL FABRICATOR Unavailable Unavailable DENNANCY, NAN Unavailable Unavailable PICKERAL [...] Unavailable Esvin, Antonio PA Unavailable Unavailable Esvin, Anotnio PA Unavailable Unavailable Esvin, Antonio PA Unavailable [...] is protected by Article 27-F of the [facility] Public Health law. If you continue you may have access to information: Regarding HIV / AIDS; Provided by facilities licensed or operated by the [facility] Office of Mental Health; or Provided by the [facility] Office for People With Developmental Disabilities. If such information is present, then the following [facility] mandated warning applies: This information has been [...] Data Source(s ) Propensity to adverse reactions [facility] Family History Family Member Name Family Member Gender Family Member Status Date o f Status Description Data Source(s) Unknown Unknown Problem [facility] ([facility]) Encounters Encounter Providers Location Date Indications Data Source(s ) Outpatient Attender: ARACELY Álvarez Braga Prima ry 05/25/2021 09:35:00 AM EDT [facility] ([facility] Outpatient Attender: ALIZE Álvarez Braga Primary 05/24/2021 08:10:00 AM EDT [facility] ([facility]) Outpatient Attender: Janes Freeman MD [id number] 01/23/2021 12:00 :00 AM EDT Spondylosis without myelopathy or radiculopathy, cervical region [facility] Spondylosis without myelopathy or radicu lopathy, cervical region Outpatient Attender: Janes Freeman MDAdmitter: Janes Freeman MD [id number] 12/19/2020 03:02:14 PM EDT - 12/21/2020 01:11:00 PM EDT Spondylosis without myelopathy or radiculopathy, cervical region [facility] Spondylosis without myelopathy or radicu lopathy, cervical region Patient discharged. Outpatient Attender: LJ Caspererrnati: Janes Freeman MD 07 [id number] 12/18/2020 12:00:00 AM [facility] Outpatient Attender: ELIZABET Martinezer: ELIZABET MEJÍA DO 12/18/2020 12:00:00 AM [facility] Outpatient Attender: Antonio SOTO [facility] 12/05/2020 11:20:00 AM EDT [facility] ([facility]) Outpatient Attender: Selam giles 12/01/2020 11:30:00 AM EDT [facility] ([facility] Outpatient Attender: Janes Freeman MD [id number] 12:00:00 AM EDT - 10/31/2020 09:25:02 AM EDT Disease of spinal cord, unspecified [facility] Disease of spinal cord, unspecified Outpatient Attender: Antonio SOTO [facility] 06/08/2020 09:40:00 AM EDT [facility] ([facility]) Outpatient Attender: NAN TANG 05/23/2020 04:34:00 PM E [facility] Outpatient Attender: NAN TANG 05/09/2020 03:53:00 PM E [facility] Outpatient Attender: NAN TANG 04/25/2020 04:20:00 PM E [facility] Outpatient Attender: NAN CLYDE 04/13/2020 04:07:00 PM E [facility] Outpatient Attender: NAN TANG 04/11/2020 04:00:00 PM E [facility] Outpatient Attender: NAN TANG 03/28/2020 04:10:00 PM E [facility] Outpatient Attender: NAN CLYDE 03/07/2020 04:23:00 PM E [facility] Outpatient Attender: NAN TANG 02/21/2020 03:00:00 PM E [facility] Medications Medication Brand Name Start Date Product Form Dose Route Admi nistrative Instructions Pharmacy Instructions Status Indications Reaction Description Data Source(s) benzonatate 200 MG Oral Capsule Benzonatate 05/24/2021 12:00:00 AM EDT ORAL active [facility] 200 mg 05/24/2021 12:00:00 AM EDT capsule [...] Maude 12/21/20 at 1119, For 30 days [facility] Medication administered onsite Acetaminophen 325 MG [...] mg from all sources in 24 hours.
[facility] Medication administered onsite Oxycodone Hydrochloride 5 MG Oral Tablet oxyCODONE (ROXICODONE) immediate release tablet 5 mg oxyCODONE (ROXICODONE) immediate release tablet 5 mg 12/21/2020 11:14:41 AM EDT 5 mg Oral active 5 mg, Oral, Every 4 hours PRN, Moderate Pain (Pain Scale Score 4-6), Starting on Maude 12/21/20 at 1114, For 3 days
If no PHOTOLITH OPERATOR or when PHOTOLITH OPERATOR has been DC.
Oxycodone immediate release is limited to 10 mg per dose. Higher doses ( only) require Pain Service consultation and approval.
[facility] Medication administered onsite Oxycodone Hydrochloride 5 MG Oral Tablet oxyCODONE (ROXICODONE) immediate release tablet 10 mg oxyCODONE (ROXICODONE) immediate release tablet 10 mg 12/21/2020 11:14:41 AM EDT 10 mg Oral active 10 mg, Oral, Every 4 hours PRN, Severe Pain (Pain Scale Score 7-10), or pre-painful procedure or activity, Starting on Maude 12/21/20 at 1114, For 3 days
If no PHOTOLITH OPERATOR or when PHOTOLITH OPERATOR has been DC.
Oxycodone immediate release is limited to 10 mg per dose. Higher doses ( only) require Pain Service consultation and approval.
[facility] Medication administered onsite ondansetron (ZOFRAN) injection 4 mg [id number] 12/21/2020 11:14:4 1 AM EDT 4 mg Intravenous active 4 mg, In travenous, Every 6 hours PRN, Nausea, Vomiting, Starting on Maude 12/21/20 at 1114, For 30 days [facility] Medication administered onsite fentaNYL (SUBLIMAZE) (PF) injection 25 mcg [id number] 12/21/2020 11:13:08 AM EDT 25 ug Intravenous active 25 m cg, Intravenous, Every 5 min PRN, Moderate Pain (Pain Scale Score 4-6), Starting on Maude 12/21/20 at 1113, For 10 doses, [facility] Medication administered onsite HYDROmorphone (DILAUDID) injection 0.5 mg [id number] 12/21/2020 11:13:08 AM EDT 0.5 mg Intravenous completed 0. 5 mg, Intravenous, Every 5 min PRN, Severe Pain (Pain Scale Score 7-10), Starting on Maude 12/21/20 at 1113, For 4 doses, [facility] Medication administered onsite ondansetron (ZOFRAN) injection 4 mg [id number] 12/21/2020 11:13:0 8 AM EDT 4 mg Intravenous active 4 mg, In travenous, Once PRN, Nausea, Vomiting, Starting on Maude 12/21/20 at 1113, For 1 dose, [facility] Medication administered onsite Calcium Chloride 0.0014 MEQ/ML [...] 100 ml / hour, on admission
Pre-op [facility] Medication administered onsite 5 mg 12/21/2020 [...] (mild pain) for up to 10 days [facility] Oxycodone Hydrochloride 5 MG Oral Tablet oxyCODONE HCl 5 MG Oral Tablet (ROXICODONE) oxyCODONE HCl 5 MG Oral Tablet (ROXICODONE) 12/21/2020 12:00:00 AM EDT mg Oral active Take 1-2 tablets by mouth every 6 (six) hours as needed (moderate to severe pain) for up to 7 days, Max Daily Dose: 40 mg [facility] Docusate Sodium 100 MG Oral Capsule Docu sate Sodium 100 MG Oral Capsule (COLACE) Docusate Sodium 100 MG Oral Capsule (COLACE) 12/21/2020 12:00:00 AM EDT 100 mg Oral active Take 1 cap susan by mouth Two times daily as needed for Constipation for up to 10 days [facility] Ondansetron 4 MG Disintegrating Oral Tab let Ondansetron 4 MG Oral Tablet Disintegrating (ZOFRAN-ODT) Ondansetron 4 MG Oral Tablet Disintegrat ing (ZOFRAN-ODT) 12/21/2020 12:00:00 AM EDT 4 mg Oral activ e Take 1 tablet by mouth every 8 (eight) hours as needed for Nausea for up to 4 days [facility] tizanidine 2 MG Oral Capsule tiZANidine HCl 2 MG Oral Capsule (Zanaflex) tiZANidine HCl 2 MG Oral Capsule (Zanaflex) 12/21/2020 12:00:00 AM EDT 2 mg Oral active Take 1 capsule by mouth Three times daily as needed for Muscle spasms for up to 5 days [facility] Ondansetron 4 MG Disintegrating Oral Tablet [...] 12/01/2020 12:00: 00 AM EDT completed [facility] ([facility]) 4 mg 10/05/2020 12:00:00 AM EST tablets,dose pack 21 TAKE PER DIRECTIONS PROVIDED WITH DOSEPAK TAKE PER DIRECTIONS PROVIDED WITH DOSEPAK SOLD: 10/06/2020 [facility] Escitalopram 10 MG Oral Tablet Escitalopram Oxalate 09/24/2020 1 2:00:00 AM EST active [facility] ( [facility]) 750 mg 06/08/2020 12:00:00 AM EDT tablet 30 TAKE ONE TABLET BY MOUTH AT BEDTIME NEEDED TAKE ONE TABLET BY MOUTH AT BEDTIME NEEDED SOLD: [facility] Injection Ketorolac Tromethamine Per 15 MG (Toradol) 06/08/2020 12:00:00 AM EDT completed [facility] ([facility]) Medication administered onsite 300 mg 06/08/2020 12:00:00 AM EDT capsule 60 TAKE ONE CAPSULE BY MOUTH THREE TIMES A DAY NEEDED TAKE ONE CAPSULE BY MOUTH THREE TIMES A DAY NEEDED SOLD: 06/08/2020 [facility] Medrol Medrol 06/08/2020 12:00:00 AM EDT completed [facility] ([facility]) Methocarbamol 750 MG Oral Tablet Methocarbamol 06/08/2020 12:00:00 AM EDT ORAL completed [facility] ([facility]) 4 mg 06/08/2020 12:00:00 AM EDT tablets,dose pack 21 TAKE DIRECTED TAKE DIRECTED SOLD: 06/08/2020 [facility] gabapentin 300 MG Oral Capsule Gabapentin 06/08/2020 12:00:00 AM EDT ORAL active [facility] ([facility]) Diclofenac Sodium 75 MG Delayed Release Oral Tablet DICLOFEN AC SODIUM 06/06/2020 12:00:00 AM EDT tablet,delayed release (DR/EC) 90 T BLANCHE ONE TABLET BY MOUTH EVERY DAY NEEDED TAKE ONE TABLET BY MOUTH EVERY DAY NEEDED SOLD: 02/24/2021 [facility] Diclofenac Sodium 75 MG Delayed Release Oral Tablet DICLOFEN AC SODIUM 06/06/2020 12:00:00 AM EDT tablet,delayed release (DR/EC) 90 T BLANHCE ONE TABLET BY MOUTH EVERY DAY NEEDED TAKE ONE TABLET BY MOUTH EVERY DAY NEEDED SOLD: 06/07/2020 [facility] Omeprazole 20 MG Delayed Release Oral Ca psule omeprazole (PRILOSEC) 20 MG capsule omeprazole (PRILOSEC) 20 MG capsule 07/27/2018 12:00:00 AM EST aborted TAKE 1 TABLET BY MOUTH ONCE DAILY FOR 30 MINUTES . BEFORE A MEAL [facility] Diclofenac Sodium 75 MG Delayed Release Oral Tablet diclofenac (VOLTAREN) 75 MG EC tablet diclofenac (VOLTAREN) 75 MG EC tablet 07/27/2018 12:00:00 AM EST 75 mg Oral aborted Take 75 mg by mouth noel y as needed [facility] Insurance Providers Payer name Policy type / Coverage type Policy ID Covered constitution party ID Covered constitution party's relationship to brown Policy Brown Plan Information [employer]ET[employer] [id number] Self [id number] Workers Compensation Workers Compensation [id number] Self [facility] U/W Commercial [id number] Family Dependent VY [id number] [employer] [id number] [facility] [id number] BCBS/[employer] Commercial [id number] Family Dependent [id number] [facility] [id number] 3.0 Self [id number] [facility] U/W Commercial [id number] Self VY [id number] [place] PPO 302/307 [id number] SP [id number] AETNA [facility] [id number] SP [id number] Aetna [facility] Part B [id number] 3.0 Self [id number] [facility] U/W Commercial [id number] Self VY [id number] [employer] [facility] Part B [id number] 3.0 Self [id number] [facility] U/W Commercial [id number] Self VY [id number] [employer] Commercial [id number] 2.0 Self [id number] AETNA (HMO/PPO/POS/GPPO - MANAGED CARE [id number] AETNA [facility] [place] O [id number] O [id number] [employer] [facility] Part B [id number] 3.0 Self [id number] [facility] U/W Commercial [id number] Self VY [id number] [facility] U/W Commercial [id number] Self VY [id number] [employer]ET[employer] [facility] [place] [id number] SP [id number] [place]BS [place] PPO 302/307 [id number] SP [id number] [facility] U/W Commercial [id number] Self VY [id number] [facility] B [id number] S VYS [id number] [facility] U/W Commercial [id number] Self VY [id number] [facility] U/W Commercial [id number] Self VY [id number] [employer]BS [place] PPO 302/307 [id number] SP [id number] [facility] (HMO) [id number] Self [id number] [facility] U/W Commercial [id number] Self VY [id number] [facility] U/W Commercial [id number] Self SELF PAY ONLY UNAVAILABLE SP UNAV AILABLE [facility] COMMUNITY PLAN [facility] [id number] SP [id number] [facility] O [id number] S [id number] [facility] Community Plan Commercial [id number] Self SELF PAY UNAVAILABLE SP UNAVAILA BLE BCBS [place] PPO 302/307 [id number] SP [id number] BCBS [place] PPO 302/307 [id number] [facility] BCBS B [id number] P VYS [id number] BCBS OF [place] [id number] SPO VYS [id number] BCBS/[facility] Commercial 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, cervical region Diagnosis 10/31/2020 09:41:26 AM [facility] F43.10 Post-traumatic stress disorder, unspecif ied POST-TRAUMATIC STRESS DISORDER, UNSPECIFIED Diagnosis 05/23/2020 04:34:00 PM EDT [facility] Z53.29 Procedure and treatment not carried out because of patient's decision for other reasons PROC/TRTMT NOT CRD OUT BEC PT DECISION FOR OTH REASONS Diagn osis 05/09/2020 03:53:00 PM [facility] Surgeries/Procedures Procedure Description Date Indications Data Source(s) OFFICE OUTPATIENT VISIT 15 MINUTES 05/25/2021 12:00:00 AM EDT [facility]) OFFICE OUTPATIENT VISIT 15 MINUTES 05/24/2021 12:00:00 AM EDT [facility]) RADEX SPINE CERVICAL 2/3 VIEWS <td>XR SPINE CERV 3 VIE WS OR LESS-OR [id number]</td><td>Routine</td><td>12/21/2020 10:49 AM EDT</td><td> Pain</td><td> </td> 12/21/2020 10:49:48 AM EDT [facility] Pain Electrocardiogram Complete 12/05/2020 12:00:00 AM EDT [facility] ([facility]) OFFICE OUTPATIENT VISIT 15 MINUTES 12/01/2020 12:00:00 AM EDT [facility] ([facility]) Results ID Date Data Source [id number] 05/25/2021 12:00:00 AM EDT [facility] Name Value Range Interpretation Code Description Data Pat rce(s) Supporting Document(s) SARS-CoV2 Rapid Antigen Positive [facility] This lab was ordered by [facility] and reported by [facility]. ID Date Data Source [id number] 01/23/2021 09:14:41 AM EDT [facility] Name Value Range Interpretation Code Description Data Pat rce(s) Supporting Document(s) Progress Note [facility] HJWRBo8kQyLTZvSm40/LBOouUNRtm3HkGAnxBBr9GHdyJEIkN8CsGPM1eO0bSYX7DDmBWfGmMyHkGiA0 m [file] [id number]= ID Date Data Source [id number] 12/21/2020 01:37:00 PM EDT [facility] Name Value Range Interpretation Code Description Data Pat rce(s) Supporting Document(s) Progress Note [facility] ORBATt1jObYJYqSd90/ZWVxpPQOlr9LgABukSNt5SBqfTCLlB4GaLYL7rJ1eKIS4QZkMPsFyKtClNZH1 lbm [file] AvRjAgMTAgMCBSDQogICAgICAvRjEgMTMgMCBSDQog CAMcADCdWnKoCHEjXJBNFi5SWjSdAPNkJF2xjeSnbJE8TUW+Tf3JWLUrQE4SlTTJQ8RebVXuMKelY7GC IA3XXKP0EC2KyLYvJW6KsZCAG6XfdWSdZn7fEWEps7LeQo9pF6SPAHNHULQgVCqcPHgeMOSnPWi1G6U6 UIBwK9EGP858kNQcaNz5Ym9oC1GQNDsLFlByTAxsGF jyBVAiAMv2L9Z1WHFoM5MLI9LyLdMcetYdP9Z+XxQhWKIAIJ4FVPPZIUt1W9Y7bBHhP8X8tYwLfLS3DZ 9OAM6WtKImkLUii49+FtYITxIcFVSuW7DBKQNMEcCtEWkyAOmvYPQqTXl0V6Z7YTUlL5APO8beJ9r5NY 4+TrQPRpQsJIVoMa5PBsPxVo9SUlXgUR1xac1UNQlc CQOlYclFNhm4B9mizxt8lRCoQsX7M6E1VyI6zHJpNP0TW6V0bQWpCOG8CHGjwAY+Sn7Il6TcZOWyLGu3 B6jqIELvKTFfCgAlgL39J++0uabhvTQ3Z7a0BHZSbUJjxQlZepAmG1wPWNO5m6E2DQe/Fs7CPQZ4fXh6 xFBdHCHgGJf0rW7amKt0KlUvFQ54FVRuVRvqpS3jEz w8X0Qiw9DdIm9oMc0fySOlHb4KQbZsKYU6gyEhMvQTKpR6aBiiwqutNIQ1F2z3qNM2Dn39c4urgiSam4 LfTxM7WKwhBRTfYeScvaDtGRN1pvLbnL2fcxYbZk7UGCGeTUambfFeOiUGPz6UZtJwEU43WdzppO5ctI E+DQogICAgICAgICAgICAgICAgICAgICAgICAgICAg ICAgICAgICAgICAgICAgICAgICAgICAgICAgICAgICAgICAgICAgICAgICAgICAgICAgICAgICAgICAg ICAgICAgICAgICAgDQogICAgICAgICAgICAgICAgICAgICAgICAgICAgICAgICAgICAgICAgICAgICAg ICAgICAgICAgICAgICAgICAgICAgICAgICAgICAgIC AgICAgICAgICAgICAgICAgICAgICAgDQogICAgICAgICAgICAgICAgICAgICAgICAgICAgICAgICAgIC AgICAgICAgICAgICAgICAgICAgICAgICAgICAgICAgICAgICAgICAgICAgICAgICAgICAgICAgICAgIC AgICAgDQogICAgICAgICAgICAgICAgICAgICAgICAg ICAgICAgICAgICAgICAgICAgICAgICAgICAgICAgICAgICAgICAgICAgICAgICAgICAgICAgICAgICAg ICAgICAgICAgICAgICAgDQogICAgICAgICAgICAgICAgICAgICAgICAgICAgICAgICAgICAgICAgICAg ICAgICAgICAgICAgICAgICAgICAgICAgICAgICAgIC AgICAgICAgICAgICAgICAgICAgICAgICAgDQogICAgICAgICAgICAgICAgICAgICAgICAgICAgICAgIC AgICAgICAgICAgICAgICAgICAgICAgICAgICAgICAgICAgICAgICAgICAgICAgICAgICAgICAgICAgIC AgICAgICAgDQogICAgICAgICAgICAgICAgICAgICAg ICAgICAgICAgICAgICAgICAgICAgICAgICAgICAgICAgICAgICAgICAgICAgICAgICAgICAgICAgICAg ICAgICAgICAgICAgICAgICAgDQogICAgICAgICAgICAgICAgICAgICAgICAgICAgICAgICAgICAgICAg ICAgICAgICAgICAgICAgICAgICAgICAgICAgICAgIC AgICAgICAgICAgICAgICAgICAgICAgICAgICAgDQogICAgICAgICAgICAgICAgICAgICAgICAgICAgIC AgICAgICAgICAgICAgICAgICAgICAgICAgICAgICAgICAgICAgICAgICAgICAgICAgICAgICAgICAgIC AgICAgICAgICAgDQogICAgICAgICAgICAgICAgICAg ICAgICAgICAgICAgICAgICAgICAgICAgICAgICAgICAgICAgICAgICAgICAgICAgICAgICAgICAgICAg EFFrDOXpUUGrMJCwRRXmSELyFTCcUYq5M8sxHOAnKGHhMW0vHCh2Cq8+KEcVUpMhTSO1vpWiwR1ONL7w p9NiWNhwPRJtv3IfMSs3GG4GRGHcZGxwWX0SYAbeeb 3TONGvUPGmgVAQe2wvWfNxJXU9OTRjIvagOW1NMKYpS2zsatWgTQWlEXEQCDahSQRMPY2CVvSoY8UxmK 48QEXLOq6+TMzuogXsFstHGwR1JZAcj7ObCMa2UN5VYFJsQzjty1YjXnNtGMKHJQooHM7SBXU6AMRzEU DmXy5SYIZpJ957uuWlFW7PNn1KPdTfMZ0twc0NQyZv GDCyTykNDwp7AIrpFA3FoSGeFGbYye0kcbTpdwQPq6UphrAyzJLHbSCgxPEluFXlAjIIqSZfzx4vzqNg TDJGDOX4OXHvDj8aPJPbBEKqYmJmAVGZKJ8UAATsDIWgxUMjBIDsPGGWNV5PCVuxYOW2IHMxuoHnzDTg NVdcNK8YMGQzftNnUIyvLNPHIPa+Kz3XPV5en1WfJY ypMNEoWE1spm6XXYkXBdDcV5M0aRMoM0O8WRwqUj8FCAEdQNLmRJppOYKSLQvqWK5WFX8xhtL5WR8EnU HdVHBoXGXqlZGyJLz2X75bbBBzFTjqLS5PAOD+Osman+Np1TASZoNFRhOVUrPzGkIVDMHmDsV7BbB2WKe2 WfX5BdYA00uKdmjvOcVPfyJU9SSV2uUINiSVVHCQ7Z yTMxoU9ovcOdAOMbGRRXHkOnD94rpNEwTNWyEVF7APQlSo3IZBJxJ6RmetQisMtfbnXgFRXxMWDHHS7J DSmodqJqdPVocOqkAB52oFgfKH6BXq1JUtQcPE8btx9SpZQkOi3KJSNtMx7YTXQbNOUvGZPvKYO9GOJn NkRfIMjeZADlWTLgXUJ3STBpYYPwWG1BXfOsYKLzRT d2LDcvFJCrCVLtqe5CIIEuFOMtJBMbZnZmWJXsZHIrCBgsBAVqPYKuLSA2AYHhDLSbFT6ZAeXvUJEdIA M5CLLeSJCsFVHtku8JETCzJZGhKoC6IdLqGXEyWYZdWSflKDMfHTX5GZK2KUKpQBQxYS6DOeYkACChOD Z2ZreuLNYqOLXyfi7DUXPlXDSoDMF6QILrRAKpXYHz DNacHMShUXU7Hna3OPJdBYIcME4AJjDoGFFaTBY8HqGvUFKwBNWbbm7AFTAiHHCnEkwaARTrOOJbARVk KQvoUUEmUPD6JAO4GWJkAFRoLC7SRoHzTVWaIFxpWcBzSWVtDURpxy3OTCGeUUSdYIH1IZVdOEHuGVOc FVvcCFScTMU0EMkjINQrBSIlRL9SMxKwUDFqEOt6Ij PnWZXmUBWwwd2SNGLcJIXrMHG7TpZnAEAbXMFfYPkbUXWbJTMoJFDzXKPeMTVsBP9RDkItKUDfWVZ7ZY BbDRHeEILgmp2RGQIqUPKkFCd8RtZrUVPfMMGgPSi6csVwuDHqHHx4CJ7RR3IfhvGtIiWPNj1Ke705AO InQIOdEc4KT0vuMt1wUPTaSSUFIy1EHFn4AkL3VHU5 SzV4LmQgYXW9ZpRnIOEqOiHfSaOkOhYqXqn+MTanEnm3TqkhAFhgDCX7FJW3CbCjNzDwRwTeQrHyWSWx CF8kZUPPMh7+ASkzvZJzoVwvBVRESpCdJGMjSPnzKTQPDy4A ID Date Data Source [id number] 12/21/2020 01:31:[address] [facility] Name Value Range Interpretation Code Description Data Pat rce(s) Supporting Document(s) Progress Note [facility] BGYOOv0mNkAKCtIc94/ONJvyFBItt3BeURtsSBx6OKidCINaZ0XhKAC0jI5fPSP4VGcYVmNjRwNpZZK0 lbm [file] ICAgICAgICAgICAgICAgICAgICAgICAgICAgICAgICAgICAgICAgICAgICAgICAgICAgICAgICAgICAg ICAgICAgICANCiAgICAgICAgICAgICAgICAgICAgIC AgICAgICAgICAgICAgICAgICAgICAgICAgICAgICAgICAgICAgICAgICAgICAgICAgICAgICAgICAgIC AgICAgICAgICAgICAgICAgICANCiAgICAgICAgICAgICAgICAgICAgICAgICAgICAgICAgICAgICAgIC AgICAgICAgICAgICAgICAgICAgICAgICAgICAgICAg ICAgICAgICAgICAgICAgICAgICAgICAgICAgICANCiAgICAgICAgICAgICAgICAgICAgICAgICAgICAg ICAgICAgICAgICAgICAgICAgICAgICAgICAgICAgICAgICAgICAgICAgICAgICAgICAgICAgICAgICAg ICAgICAgICAgICANCiAgICAgICAgICAgICAgICAgIC AgICAgICAgICAgICAgICAgICAgICAgICAgICAgICAgICAgICAgICAgICAgICAgICAgICAgICAgICAgIC AgICAgICAgICAgICAgICAgICAgICANCiAgICAgICAgICAgICAgICAgICAgICAgICAgICAgICAgICAgIC AgICAgICAgICAgICAgICAgICAgICAgICAgICAgICAg ICAgICAgICAgICAgICAgICAgICAgICAgICAgICAgICANCiAgICAgICAgICAgICAgICAgICAgICAgICAg ICAgICAgICAgICAgICAgICAgICAgICAgICAgICAgICAgICAgICAgICAgICAgICAgICAgICAgICAgICAg ICAgICAgICAgICAgICANCiAgICAgICAgICAgICAgIC AgICAgICAgICAgICAgICAgICAgICAgICAgICAgICAgICAgICAgICAgICAgICAgICAgICAgICAgICAgIC AgICAgICAgICAgICAgICAgICAgICAgICANCiAgICAgICAgICAgICAgICAgICAgICAgICAgICAgICAgIC AgICAgICAgICAgICAgICAgICAgICAgICAgICAgICAg ICAgICAgICAgICAgICAgICAgICAgICAgICAgICAgICAgICANCiAgICAgICAgICAgICAgICAgICAgICAg ICAgICAgICAgICAgICAgICAgICAgICAgICAgICAgICAgICAgICAgICAgICAgICAgICAgICAgICAgICAg ICAgICAgICAgICAgICAgICANCjw/qVTcP5ucaPFqss L3N6sqDd7DVt4FYT1hi8LhQVTuEVuxrsCeOaxEIdPbKDSdXybMCgy2GXxsZE7HiPPqZ2ZrA0KtOFxbIE 1GSMMbGLZryCVtQNXcHZQxYaI6GMWxEDqyNK3VsKNpQNkxHJXpJQJeSQ5OKPJhO284hmAqJY6RMr2OTv MdDD8bfy0BOHPfWRUgIxoGGof1IGpqXP3SdVOykUYr MKXmALVRVgRbW9aqq8BsEWAtICDKMEnpZM8Ar6StzXVmFZx+Mq9LUZ8zy6WgOZefLIWwYO5gyx9HBSuP IcTjM8UveAunXTAhx5hqULIyXT5bgIDnPXI4GQ7tF4clyrJYXXOaaLOuTQSIYHP3UIBoKo1gHCVmEXVw ZaOrKOBSSG5WJXTpWJDcrIZlFFWiHYPBNY7YWLamCF W7PGVzqtDycSAyKJwcCA8HDJWmeqIaUDQlBHYHJXm+Wc6EAJ0jm9ZoVXbdQuQzMV9noi1ENKjSKjLyN2 V4gELeZ1S2AGvoTx6UWNBbLCAgPHQaYTQQLZcmFC1KFG7uylR5ZB4FfZVrPHGhIONnaASqODx5I80ycB LjCQtsAH5QIDU+Osman+Vs6MBBDsZWKnCSAzJxSuULIT KvHzV6GvK4PDr8CgO5KfRP01jYxlqdVxDTijTU5PKO1vNZGuYQTADN6VfNYpyY9lmsGfLBEyQDWITfBy O35xgNMzUSVdGFWoCHBrRr4CPLNaE0UiexCazPewjoSlMYStEDTKWA6XQPjjmzOluFJjcMfuSV86oWax QN6BYf1KPwQxTR8ugu2CkGJgKi4DWHZlYd6IURVlZW XaYBQqYWU6RJAtAjHuALlvYTJvNUQwVTS0QVZwVBPcYL6XRaYzHQIyFQF3RyDtCJEaVNKpgw0BUNWnNZ TrOgL0UEUyYMCwUOGgZMqkFZZhJXCnIUV9BKKyIGRuKN0NOmObLNAgBGF2SDAyRUZfOPBykw8PAFDlHQ BdCvNnCTAnDPWaFXGjIBlaTWHpSBOiGRq0XTKtRDSo XC9KJcEbTVOsVAJjVePmGSLlZOQbkk7YIUTsGGMgKlW7VbKaENAtWIJaJAxcVSNhMBP9SYSiGXUeZPDe ID7BSnWoZDGxHUT2KRLdSZRcJWDkvn9MKXNmSZWdJTpoJLFyVUTwSFEwGGdzDAIdBPZ0VaC2EEXmDCXq RG5SDvGiUKSsESG2HVHjRRShNYHyea5HNIGkOAWpFc fhJkSaCRMuNWFsZAkoEMKiNRS2OWFmRPVfPFBgXI3GByOiBLyiNUZZVnt2DMljM7q5VBApVu3VG9Zoi1 OvCWBdLFWHJKslGV2gijFmDMIeLt8WM2lJJke4O0SzTtv1JKGsIOIiKcTdOGhvGFNmAZagMnXcKNmuWV 1lEEktNlRzUQyaXgDsJ8XrCCJjH9OsH8V9FNTyM8N2 DRM9VtRjCZ3PZg9XFmC1HVA6jQKzAk0NAlRhYL3ZLJKSX1PZTq== ID Date Data Source [id number] 12/21/2020 11:22:32 AM EDT [facility] Name Value Range Interpretation Code Description Data Pat rce(s) Supporting Document(s) Operative Note [facility] MPNGHc7kToJZRxQj70/QLFodEAQhg8ClRYzbDGv2JUbeRTVwR4TmMBX8zC6jQKT8YQzDIcLhUrTtOVT0 lbm NzQrkFFeZdPWOwNbmLEiMkYZgvXafkfYZfLV9HxAA7PENtY67rVHPtPXApS9CePOG5GUD+Ca6EVDHhyI WiZS7UDjdF0N8rA6kDGd7+Vfc/KWIvtmpkUx7grRaqYNjFftXLlHJqVC/BvAU9azTHJIkXK01xoThIhb JzgBseHbzTZ9SspL9Yth31vkVK/irO1K2Fz3FD/N/y 6ga5jLum+zaijQfq72n+uijLXMVd2TiYmn7N8v++e/eG68bj33zKeWGQ9Bd2zZ7FVRRayKJU0+GTV0/N 8e/XkDJHx5jPHbdSG6T8swRRpfdgpnKKq5ePTHb4sw/9aq9Es1ZX9TZ8AmNgCR1xQFdfJ6CcWHxcO59P DQt18zOmiM2yoA6JJHCe5051nErVdDcR3B1HNeX1JL btvE6se8muI882fjXgHzdjwGajFOS1ypIhnebwhF88lazhC1GrcKmaMy32Wcon+rEXsh/OyXGgOyb5tT V0VGj0HPTpxjIB7D0SvIy85WPYjJJGfPo1zQOf2M7noza0DL/MxtlkZvazy/u5SpzixB5RuTBe8toz7T C23c254NQ5Jbqde2aTFSkrAXToy9FVYMTNAmhum2Hq PpoU+lFBlZ6bahSl+m9ix1CwN88py+s9cTSmODpF1QvNxk/87QaWIrXI3XRyQrsJpuzNADaREwI03riB 06xKdcOOmOQCR86bLb7rGBc4A0majM/L0C0aKH0YLT4Tm22kKHulJ98gCmzK6lmzdn9Yj8RFrI6/7+DI KU8ckRpmM+vUfQepLJ9ffNU+UdQ+GyMdjX5uexCEhp SQIncEkturB1mficxVsLFdU7vOdslgcLF1qmXiqgQnyh1j6GlwMAgW+vq8zld4VkkDokRw0uU0CSf7On /icJVun2tW3xKqAZtSjH04QOQ6GUtZ2yyIpJ43nmX4+g0mLJs5SMnSd+N3mS26oN6IgBzHwenBo98Jo9 XO4F3jjtay56ddSzote1DL6UxXj+39RAMXNqRM/Jyoti [file] ID Date Data Source [id number] 12/21/2020 10:49:59 AM EDT [facility] XR SPINE CERV 3 VIEWS OR LESS-OR [id number] NAL RESULTThis statement is intended for documentation purposes only.This exam was performed in the Operating Room by the Surgeon and a Radiologist was not present. Please refer to the Operative note in EPIC. Name Value Range Interpretation Code Description Data Pat rce(s) Supporting Document(s) ID Date Data Source [id number] 12/21/2020 07:58:51 AM EDT [facility] Name Value Range Interpretation Code Description Data Pat rce(s) Supporting Document(s) History and Physical [facility] DMGHIl9aJsFLWdKn37/WYSrdDQVrp9FwDYgcVLy9CXuhJFQpV6MkDIY1mZ9uXST3TUmQTyUaNmCnKCW5 lbm [file] ICAgICAgICAgICAgICAgICAgICAgICAgICAgICAgIC AgICAgICAgICAgICAgICAgICAgICAgICAgICAgICAgICAgICAgICAgICAgICAgICAgICAgICAgICAgIC EgGCLaSY5JCMYhOJAxPIAoLKYdSGWxEPNgWWZzETPsNEOxXRPlDZTrEBLvJIPlTIZsIVMsKUFpGFDrJU AgICAgICAgICAgICAgICAgICAgICAgICAgICAgICAg LULeEZHuIKRrQGZyQWKqEO8RWZDuOKBnQJBuJJHcTUWsUZYqFAPbGPQuJIIqRSWeJKReZYNsVPAzSIOd FRQmNBXsBIBoPBPmGQZmXPOvYGUaRPEgTQSoCVOmNOIbZYAiVHLmILHoCRInSEPuIWSkLEPkWQYaIN8K ICAgICAgICAgICAgICAgICAgICAgICAgICAgICAgIC AgICAgICAgICAgICAgICAgICAgICAgICAgICAgICAgICAgICAgICAgICAgICAgICAgICAgICAgICAgIC ZlFTKdSGXoMQ6QICWrVVCzRNAuFKTlQMIfSZLuEPEmFLXyBEMeYXNnORYxCHGwCYGsNQOdGJApKDXeOE AgICAgICAgICAgICAgICAgICAgICAgICAgICAgICAg LYJiDXSpAWKzZIXzMIRxGERzXO6IXKWbGCSgHBQrAUEpZCJiEMLhTVIpSOZzYXTzYTVlBORaKNYgXCQy ICAgICAgICAgICAgICAgICAgICAgICAgICAgICAgICAgICAgICAgICAgICAgICAgICAgICAgICAgICAg BQ4TGIMaUEMwGOLsNOTtCZYoJEYxDMSyKIBzOFClVD AgICAgICAgICAgICAgICAgICAgICAgICAgICAgICAgICAgICAgICAgICAgICAgICAgICAgICAgICAgIC RuYNTuNGFySTVqKA8SAADdZOCdCLAxQEScJWHpEGLgLDNxAJOdHOIwAFVcDOOwJYDdTGTtRHEtBMKqPY AgICAgICAgICAgICAgICAgICAgICAgICAgICAgICAg FENjZCHmWAUlDAAbTIWqNZBwAJNgSQ7WGSGtZUQiSTXgDWUoVPDnSYRwGZFrWNHqXDMqVKElOCHjQAHu ICAgICAgICAgICAgICAgICAgICAgICAgICAgICAgICAgICAgICAgICAgICAgICAgICAgICAgICAgICAg NJEoIG3RLR19yBYwi5A7EKFfQJ7bruu/Xb5ROLhxkg SxaIEqSA2MDhRuBH1kyb0GDlPjXD2ptz8LSBpWGiVgG9A5yCAyRXPdZZGFQpFxB47zAMnqFj54FLgvAB JyZkGwWAx2Rr9UBbYcZ7lgSFJzLtU0THRwPvU4EFCgXgO2YFDgXeJpKDEeAMBrGY5ENUChX009bhRcHJ 8PJn8KHpEwIA7smi1LUxOeHYGdWyyWDuq0IXvuJV8M vSTlmVRpRyLkTFGULpIwD2wwq2SoVvHtPJFNQUadGM2Bu0WsrBVsZCf+Wc6FRG8qi0NpHTtlUgDtDA8r ix6MFMfKPsIiP7JgvAjjUXtcMIFtmDJUiIPnNYzkWZCLYJUaUBtqgLQlTR0UQZM9AXZaRz8kXKZrMVT1 TmR9JMAAOG5TPXIxSTZzvNDlXVRaMDIYWQ4UKOkfTM W1XIJwwyKdbFMbWFspBE0YQSRadiPfTfAoWDFGOEb+Oc0TUR3ko1LsQEppWvVoXX6wus7YGQjWEeQyA0 H7pBZyC8T4CTkrPo9QBAFpHJWaHzeiSBBQPSzhQS0FYS7nonZ8EN4AdQUwYIWmWILeoPUpICs3O66vnX LpHCwgAH7WSHT+Osman+So9WIYRyKXImCRZiZuPjHHQV TdRdJ5PdX8UYf6RoR5PhRV32qKlgltWvEFfgZH2KXP9mJXIpOMGLPT1ThPBjkV5xqlLjPQOwJPHYEhOi V46thOFeGQHaZDVzVVTeWm2SEFEdQ9VyqgDfaZwvmuMhNGTrUUTQHR5ZERnaahOghZDymFknIV64tEoo OW2EZt1VHhQeQF4ccs6JlSQzSv2ERUOfLD5JQVYsJK BwVWYdPFB3GQYvKjSvRVyhNXWcGPEsLJF9ZOVpBMReHT0QYzZiBLSwQyrvMcYyUTUwBNJrmf7GIETyLG HlBJk9LMLgHZZiQHAeEQxnMWBjGHBgNQX8WIIhYAHkBZ5JEdLsHJXsXGAtKphhTXQuJNJeeq5ZGKDdKV ZxZlQ1XPGaPXWhRVRkVMdsDHWsMPK9LgDeHUZpTAFw HQ9NWeMwNFRkOWS8AAPfWQWwSGPuvm6TGCWeILTjRXzvJIZcQSUkEXRlAEqzMWPkNUK5KDCvYLTrTXKc KR7QWqZmNLEwZSPfUPKkEGKtUTCdux8ORIQeCVPrKMW5EkXuSVEkHOUiSMwbXUMjUXVyFoZiSODtRARf AT5HFbCjUGJxUVA9GMzcMTMlTGKtid2KMCHeKXGeDs icNjHxWASmCYCtDLmuSIGiCXPjCaFuFOLlHRZzLS1QPyVjINXbJOW0GoTbCACaNUDxmw2NZFCsYYDgJA T8AJAiLBOoYZAkKEdiLBEoSQH1WCNoGIGlXOYuHQ7MJfVhNJQmHWMkDVdeXGCsYELhru7ZGWYmAMDuAF R1RMOrZGMhEPBdSXobPEGgBUB1Ppr5UDAjMZNoMD9X FjUiFWDcHgvoGXTmNDCmYVTqxt3BGOXoLFHsVxKnCsHoEJHcBWCjXAimKJFtDLH2IWHiMIYkHGFtIE7Z HrViQWEnJll4OZguAYZlDTNpel4QMWUxSMHbFVWhUwDfWQJyEPYoZCabSXOvZLS2KMAmBVMsKLJwAX5I SfXuFVHtJmo6YGbbQINlWCMchx0HVNWoPHMpSVEtVF GiEHJoOVVyUUgjIPFaALQcYFn9AWIiRRKoIU6DJyNtKRElBqQ9DFyjNMTwTFQjiu8CXZZfKEYlKVNiBV OeMQWbBASsUBe6ydIddBJyUUq2RT0GV7HkadNqAkGXEv1Ea743FYHcVMOyTd7VO6txCx1nVQIkVSKHVi 6WCWq0Mht8IUDhHfsbEsIqWhMkOnS6GxE9JhBmA6H2 Fjh9CGR+SDztYJIfOoHrCDAmPLX2GFKfUpn9CZv5OFQyKdhmIRG1Yr3wQUPFUo1+DQpzdGFydHhyZWYN QlZyAbO4IUmeRTWJVe1D ID Date Data Source [id number] 12/18/2020 11:39:07 AM EDT [facility] Name Value Range Interpretation Code Description Data Pat rce(s) Supporting Document(s) Progress Note [facility] XEYMQa7gAxCOIbPh17/BMTuhGQJnw0AtDRyoBQo5XYedJJEtS4FaYDN5fS8sSLA9ZNsZJaMxYcWdGDYo lbm WdVmuKJjRdKINkSphLFrJkTAbiHgatlKUpTD3DhMR0BIQvH16bTSBpDDExJ0EoWGW0ERO+Ez9TJLYqbA IiJY7FAvrN4Rfsv7w8CS2+YP+WKYDbDXvSQYTUByTTTwA2Nnsoll9TniNDxo1tBsmnx624+oxh8itaAz kQZQNkEOuN6ITE0/LweLyjEsayf/+xfePfu8PJ3/qj 8kHmellZB1CerpIqajSBGWn7GVfDGejA+qPkXz/we5/ur8HPihf3Bu23UZ7by7Favji/8sw9bwb/M55q 7gORTFlVxJU8dNGUPlkmx0uy71bHPvBoxzvbHrZU9unO8pW3AfT0KXtQ5sbf4Ixezjy6WVc7g0lVcsHS jN2ZeZCXJlZcCGCiXKYdTtO+fErfY5xyQv05KuHbvA ZfL/p0JQEgx0J2y+KuOGnoBIbvFVy2Dtf70lunjpcSBMa0UI39uQ4a2u4ofAP6upzogCp5VwMxIYdMci bTlFpmZJMHvg6V4Kdhm2Jov69ICZhA2MkSZ9Z5iWsWj3joDzO92AC6CS41TnNRVo/aPQrotFjs6ZuAV4 1KQENSvqyKUjJrY48Nf3pgha7B9nc1kI79xInpX5n0 VmiBNdHBrowIos2U/4etRTdqm1da94QK6Xd86Xpzdw2O3yIN1+GlvBQyNYg3sr6yeyEuXRPXh7jts7Eh y9c7OsXB1aF+hDJuBGlzVAsrOtIGHFiiM9IkIUsthyJCvN75DoDo9rjTyXW1WjsmQRHowPEZcXUaEY9M Jf8n2dwoswb8dxvTAK9B9br0olfMoVe8px4os7k64O qpQQvsyQ7qbtmwffwMtoaDnfD8SFgHFeO4cViGRlmulQaDFiTeqEnTp4ABCwY75SZfSUL3ISj95mJPi1 9y+boY1CRZOmDV+4X1Q/SDq4M6dEDqvH4hdpTGP4WIBuwEyAmN/n3I1jdfPHgPOxe57EjMNDwDjrITBS sLTKURNYTwrhXsacVBpU3ppXpIhTOZTQKwCTRUtH8k [file] ICAgICAgICAgICAgICAgICAgICAgICAgICAgICAgIC QbDRQoNDRbEFLdPWQvSQTuMRGfJWZbMXWmJTJkIRCiGX8MDXXoRMWlNBXuNRCjKEMxNFPyADQkRCRiAL AgICAgICAgICAgICAgICAgICAgICAgICAgICAgICAgICAgICAgICAgICAgICAgICAgICAgICAgICAgIC KvPWNoSDCwDBIzHEKqDA2BJHHtFQHkSWFfQOBkACNb ICAgICAgICAgICAgICAgICAgICAgICAgICAgICAgICAgICAgICAgICAgICAgICAgICAgICAgICAgICAg MBSnVXHrCDZlQESzRHJcPTUgZDJyOKBaIC2QQHOfTZEpFWZiYGFiPFHtJSDaENMpXZWzKQDqCIWtSFBa ICAgICAgICAgICAgICAgICAgICAgICAgICAgICAgIC RrSPUdAUWzEIUkAXNhXTQgUEAgKAUkWBBdMQFaXSPjUHJbIR5DGLPlESFkBSAfUHZhDXHwMYTqXEVzSF AgICAgICAgICAgICAgICAgICAgICAgICAgICAgICAgICAgICAgICAgICAgICAgICAgICAgICAgICAgIC RgXENhHGYkFNYwXIXqHINtOF4WPWHiCCKwDWSpYPJh ICAgICAgICAgICAgICAgICAgICAgICAgICAgICAgICAgICAgICAgICAgICAgICAgICAgICAgICAgICAg GGYrOBEySPEtMCGeLQQeIHQhDHHsKFFgXFZbIY9ZLHPhGBPoNGUeRQFoINWlWSHtSTNqDNQcAVQsOFHf ICAgICAgICAgICAgICAgICAgICAgICAgICAgICAgIC MtYRHzFMLvKPDtADQiNTAvJKOqLTVrYZVrXQUzUMGsDTKpHLWeGM3BUNXgLIWcSSJeVWPcFOEdXNYrYI AgICAgICAgICAgICAgICAgICAgICAgICAgICAgICAgICAgICAgICAgICAgICAgICAgICAgICAgICAgIC RnNSJfLJRbGHGmFHBzHHInAWJeAT7LHEIwUFZfCXYr ICAgICAgICAgICAgICAgICAgICAgICAgICAgICAgICAgICAgICAgICAgICAgICAgICAgICAgICAgICAg OUGyTTXcSUFoEGIaDEHdKUCkDMKeQJVtWQBnATApWU9MCTBtLPMeJWSbTEDpGOHjIOTcMJLfHFRgSKNw ICAgICAgICAgICAgICAgICAgICAgICAgICAgICAgIC JnKJIwNRYoBPRlMJDrJOMlJFOtNGSkQMXwJJZvCJFhRZYfMUPcDNLgKV1CQV34qYYom4U2XIHxXX2qcn c/Xr5ULYxrfpXotXAwOF6KQpYeMG9czo9UUtBlAA1epk6GAIyLBuRjU6H5sRXiULGgPWXTWdQgU49yVA gjBd07ZNjjTEGfNqLbSNs0Zt6WXyOsT9yaAFDlKmH0 PYQlFzNjJHnvTA5Wk2QihZJsIQj+Xg4RYH2pi3CgIFtzYZKqXK0fgy8IGLmCTkXeL1GsnmN2ILXqPMDq Ok7CLMSfSPIbiJHgYDYjAIDMNoJcC2DleV44ELKLXa7+ZIjuxhJsOuwLAiViOCNuh1YsRPv5VV7YRADs QGt5iHCvIAKaY1Cpq5CrZg09LODcPvuuVC5hIJWLIV JrSOQMHWkcHSGgJJGMDRM1ELByCx9mFOWrYOWsEgEwJXZHUP4AMWIdIOSxjKLeFYSeORVWLS9XCAvtPC Q6WYGfjiQssLSwLOuyVZ8WKCRfsdXsNSwxQSMRQNp+Jv6KAS0je7NqJMrfHSStEY9nrs6MYGwGSzFgW2 E6fMGxH0L3UIslUm5ZPANvNWMwRXngHJIEJSkcXX3O LP3tirZ7FU6CaFAkHMBqIUDbiWKvBMl8Q99hhOZoIKkaKO0KEPG+Osman+Yk1XETXmDEVdUWQvSaKdPGPY RgKsP9LtM1EQw3BqY2UuHV99tUtndkEsXZcyQB6ICC7kQBPpDZAAWO1EmXPzeI0nkfJkZMZnMRLUWqLi Q38ikFGxCHKmZJY5IXByCg5XUMXlI1IvyaXnxOoyrh NfRSDzXOILBA1JOYmobtEmqTDcnUcnPM14fYxoTD7WVy3PZlNmHW9wxv0EuCJyYz2FDIZpRc9WENDaWN LjZMEeLSS8JYUtXiElVKrsKPSePTGqWMJ9KKLdEVVwKV5RHoGsWDUgPWiwPGBzWJXtUTIutr4XMGUaXN MxWMGfDjSvBRVkHVWsEDzgGNDhFJVqSNC2XTMvWDGa AX5HZoHfKVWiGVAvCwEeHZMxDRQibh0PTHPgLAPhMeDsWIHaVPYgHQSePHdsLEBxOPHyNau3YWKsHJMu TZ2PJpIbJGNmHHC9EATlHQOxOSDboc9SGDHoRUNcKtK7JQNwKVQeJFKpIPtuBSJsFQA9YpX5GUEsBAEd CE4EDxFhEZOcUWQ1QoQaZHIiKDSexd8RIGUeFFUvAT TuYwFkVYSaQYOkBBbbLLGdMBB7JhzsMKKmNNCqBG7FWuAxMRLsCVQ9BZnpJSRlRJNxjd9GRTMwHIOjOi l4IvHgSEKcBQNiCSwgAWFnMBK5OWT8KHBlOFBmUX6UWvAnMMOeCPesEOCjZZXrTFAocd6QOJMpRIMbQc T4WjQrYAOhSBXkOCeoMZVvXQS0FBGiPTBcLTRnLF9Y GjOjJHWgMZivJMCtSBSwTYVjrn7PQUAgRNKoXPO4WkGoBQXlLRObCMa2edScuNUxGXh4TW5WH3RgfoAp JvZSSv8Yp991JIZyNUNzSh7FW2wcDb9sMWExUXHTSi8QLCz3GXD3KoZ3IFCxSnn6MYMkEuSmWZGrSNf5 ZNEhSPG9DcD+VSwcLJU9HgO7ICDaGNF2ZwT9ZMAuKf DeJyRgJXSkDZyyNj9nJNWERi4+MCmcwXSkpYivTUSOCbS6JIr5OStnWAVSOt2G ID Date Data Source [id number] 12/18/2020 11:39:00 AM EDT [facility] Name Value Range Interpretation Code Description Data Pat rce(s) Supporting Document(s) SARS-CoV-2 RNA 2019 nCoV Real-Time RT-PCR: NOT DETECTED [facility] This lab was ordered by [facility] and reported by [facility]. ID Date Data Source [id number] 12/18/2020 08:28:21 PM EDT [facility] Name Value Range Interpretation Code Description Data Pat rce(s) Supporting Document(s) Specimen source [Identifier] of Unspecified specimen [facility] SARS-CoV-2 RNA 2019 nCoV Real-Time RT-PCR: NOT DETECTED [facility] Assay Performed [facility] Patients first test for [facility] Patient employed in healthcare setting [facility] Patient has symptoms related to [facility] When did you start to experience these symptoms [Date and time] [Phen X] [facility] Patient was hospitalized because of this condition [facility] patient was admitted to ICU for [facility] Patient resides in a congregate care setting [facility] status [facility] ID Date Data Source [id number] 12/18/2020 10:57:00 AM EDT [facility] ([facility]) Name Value Range Interpretation Code Description Data Pat rce(s) Supporting Document(s) aPTT in Platelet poor plasma by Coagulation assay 24.7 s 24.0-33. 0 [facility] ([facility]) ID Date Data Source [id number] 12/18/2020 10:57:00 AM EDT [facility] ([facility]) Name Value Range Interpretation Code Description Data Pat rce(s) Supporting Document(s) Leukocytes [#/volume] in Blood by Automated count 5.7 10*3/uL 4-10 [facility] ([facility]) Hematocrit [Volume Fraction] of Blood by Automated count 47.3 % 4 1-53 [facility] ([facility]) Erythrocytes [#/volume] in Blood by Automated count 5.44 10*6/uL 4.6- 6.1 [facility] ([facility]) Hemoglobin [Mass/volume] in Blood 16.2 g/dL 13.5-18 [facility] ([facility]) Erythrocyte mean corpuscular volume [Entitic volume] by Auto mated count 86.9 fL 80-96 [facility] ([facility]) Erythrocyte mean corpuscular hemoglobin concentration [Mass/volume] by Automated count 34.2 g/dL 32.0-36.0 [facility] ([facility]) Erythrocyte mean corpuscular hemoglobin [Entitic mass] by Automated count 29.8 pg 27-33 [facility] ([facility]) Erythrocyte distribution width [Ratio] by Automated count 13.6 % 11.5-14.5 [facility] ([facility]) Platelets [#/volume] in Blood by Automated count 213 10*3/uL 150-400 [facility] ([facility]) Differential cell count method - Blood Laboratory test result [facility] ([facility]) Neutrophils/100 leukocytes in Blood by Automated count 64 % [facility] ([facility]) Lymphocytes/100 leukocytes in Blood by Automated count 25 % [facility] ([facility]) Monocytes/100 leukocytes in Blood by Automated count 6 % [facility] ([facility]) Eosinophils/100 leukocytes in Blood by Automated count 4 % [facility] ([facility]) Neutrophils [#/volume] in Blood by Automated count 3.71 10*3/uL 1.8-7 .0 [facility] ([facility]) Basophils/100 leukocytes in Blood by Automated count 1 % [facility] ([facility]) Lymphocytes [#/volume] in Blood by Automated count 1.44 10*3/uL 1.2-4 .0 [facility] ([facility]) Eosinophils [#/volume] in Blood by Automated count 0.22 10*3/uL 0-0.5 [facility] ([facility]) Monocytes [#/volume] in Blood by Automated count 0.34 10*3/uL 0-0.8 [facility] ([facility]) Basophils [#/volume] in Blood by Automated count 0.04 10*3/uL 0-0.2 [facility] ([facility]) Nucleated erythrocytes/100 leukocytes [Ratio] in Blood by Automated count 0 /100{WBCs} 0-0 [facility] ([facility]) ID Date Data Source [id number] 12/18/2020 11:43:[address] [facility] Name Value Range Interpretation Code Description Data Pat rce(s) Supporting Document(s) Leukocytes [#/volume] in Blood by Automated count 5.7 10*3/uL 4-10 [facility] Erythrocytes [#/volume] in Blood by Automated count 5.44 10*6/uL 4.6- 6.1 [facility] Hemoglobin [Mass/volume] in Blood 16.2 g/dL 13.5-18 [facility] Hematocrit [Volume Fraction] of Blood by Automated count 47.3 % 4 1-53 [facility] Erythrocyte mean corpuscular volume [Entitic volume] by Auto mated count 86.9 fL 80-96 [facility] Erythrocyte mean corpuscular hemoglobin [Entitic mass] by Automated count 29.8 pg 27-33 [facility] Erythrocyte mean corpuscular hemoglobin concentration [Mass/volume] by Automated count 34.2 g/dL 32.0-36.0 [facility]th[facility] distribution width [Ratio] by Automated count 13.6 % 11.5-14.5 [facility] Platelets [#/volume] in Blood by Automated count 213 10*3/uL 150-400 [facility] Differential cell count method - Blood [facility] Neutrophils/100 leukocytes in Blood by Automated count 64 % [facility] Lymphocytes/100 leukocytes in Blood by Automated count 25 % [facility] Monocytes/100 leukocytes in Blood by Automated count 6 % [facility] Eosinophils/100 leukocytes in Blood by Automated count 4 % [facility] Basophils/100 leukocytes in Blood by Automated count 1 % [facility] Neutrophils [#/volume] in Blood by Automated count 3.71 10*3/uL 1.8-7 .0 [facility] Lymphocytes [#/volume] in Blood by Automated count 1.44 10*3/uL 1.2-4 .0 [facility] Monocytes [#/volume] in Blood by Automated count 0.34 10*3/uL 0-0.8 [facility] Eosinophils [#/volume] in Blood by Automated count 0.22 10*3/uL 0-0.5 [facility] Basophils [#/volume] in Blood by Automated count 0.04 10*3/uL 0-0.2 [facility] Nucleated erythrocytes/100 leukocytes [Ratio] in Blood by Automated count 0 /100{WBCs} 0-0 [facility] ID Date Data Source [id number] 12/18/2020 11:53:49 AM EDT [facility] Name Value Range Interpretation Code Description Data Pat rce(s) Supporting Document(s) aPTT in Platelet poor plasma by Coagulation assay 24.7 s 24.0-33. 0 [facility] ID Date Data Source [id number] 12/05/2020 03:19:00 PM EDT [facility] ([facility]) Name Value Range Interpretation Code Description Data Pat rce(s) Supporting Document(s) Appearance, Urine Laboratory test result Normal (applies to non-numeric results) [facility] ([facility]) Color, Urine Laboratory test result Normal (applies to non -numeric results) [facility] ([facility]) PH,Urine 6.0 units 5.0-9.0 Normal (applies to non-numeric resul ts) [facility] ([facility]) Specific [place] Urine Auto 1.017 1.002-1.035 Norm al (applies to non-numeric results) [facility] ([facility]) Glucose, Urine (Ua) Auto Laboratory test result Normal (applies to non-numeric results) [facility] ([facility]) Protein, Urine Auto Laboratory test result Alla l (applies to non-numeric results) [facility] ([facility]) Ketone, Urine Auto Laboratory test result Normal (applies to non-numeric results) [facility] ([facility]) Urobilinogen, Urine Auto 0.2 mg/dL 0.0-2.0 Normal (applies to non-numeric results) [facility] ([facility]) Nitrite, Urine Auto Laboratory test result Alla l (applies to non-numeric results) [facility] ([facility]) Bilirubin, Urine Auto Laboratory test result Nor mal (applies to non-numeric results) [facility] ([facility]) Leukocyte Esterase, Urine Auto Laboratory test result Normal (applies to non- numeric results) [facility] ([facility]) Blood, Urine Blood Laboratory test result Normal (applies to non-numeric results) [facility] ([facility]) RBC, Urine Auto 1 /HPF 0-3 Normal (applies to non-numeric results) [facility] ([facility]) Bacteria, Urine Auto Laboratory test result Norm al (applies to non-numeric results) [facility] ([facility]) WBC, Urine Auto 0 /HPF 0-3 Normal (applies to non-numeric results) [facility] ([facility]) Squamous Epithelial Cell Ur AU 0 /HPF 0-6 N ormal (applies to non-numeric results) [facility] ([facility]) Mucus, Urine Laboratory test result Normal (applies to non -numeric results) [facility] ([facility]) Hyaline Cast, Urine Auto 0 /LPF 0-1 Normal (applies to non -numeric results) [facility] ([facility]) ID Date Data Source [id number] 12/05/2020 03:19:00 PM EDT [facility] ([facility]) Name Value Range Interpretation Code Description Data Pat rce(s) Supporting Document(s) Bacteria identified in Urine by Culture Laboratory test result Normal (applies to non-numeric results) [facility] ([facility]) FULL REPORT IN LAB NOTES ([facility] and [facility] ). NO GROWTH ID Date Data Source [id number] 12/05/2020 03:19:00 PM EDT [facility] ([facility]) Name Value Range Interpretation Code Description Data Pat rce(s) Supporting Document(s) Prothrombin Time 12.9 s 12.5-14.3 Normal (applies to non-numeric results) [facility] ([facility]) Inr 0.96 Normal (applies to non-numeric resul ts) [facility] ([facility]) THERAPUTIC HUMAN INR VALUES INDICATIONS NORMAL RANGES PROPHYLAXIS/TREATMENT OF: VENOUS THROMBOSIS 2.0-3.0 PULMONARY EMBOLISM 2.0-3.0 PREVENTION OF SYSTEMIC EMBOLISM FROM: TISSUE HEART VALVES 2.0-3.0 ACUTE MYOCARDIAL INFARCTION 2.0-3.0 VALVULAR HEART DISEASE 2.0-3.0 ATRIAL FIBRILLATION 2.0-3.0 MECHANICAL VALVES(HIGH RISK) 2.5-3.5 RECURRENT MYOCARDIAL INFARCTION 2.5-3.5 Partial Thromboplastin Time 24.3 s 24.2-38.5 Below low normal [facility] ([facility]) ID Date Data Source [id number] 12/05/2020 03:19:00 PM EDT [facility] ([facility]) Name Value Range Interpretation Code Description Data Pat rce(s) Supporting Document(s) Glucose, Fasting 107 mg/dL 70-100 Above high normal [facility] ([facility]) Creatinine For GFR 0.83 mg/dL 0.70-1.30 Normal (applies to non -numeric results) [facility] ([facility]) Blood Urea Nitrogen 19 mg/dL 7-18 Above high normal [facility] ([facility]) Sodium Level 140 meq/L 136-145 Normal (applies to non-numeric res ults) [facility] ([facility]) Glomerular Filtration Rate Laboratory test result Normal (applies to non- numeric results) [facility] ([facility]) <content>Units are mL/min/1.73 m2</content>
<content></content>
<content>Chronic Kidney Disease Staging per NKF:</content>
<content></content>
<content>Stage I & II GFR >=60 Normal to Mildly Decreased</content>
<content>Stage III GFR 30- 59 Moderately Decreased</content>
<content>Stage IV GFR 15-29 Severely Decreased</content>
<content>Stage V GFR <15 Very Little GFR Left</content>
<content>ESRD GFR <15 on RN OR LPN</content>
<content></content> Potassium Serum 4.0 meq/L 3.5-5.1 Normal (applies to non-numeric results) [facility] ([facility]) Chloride Level 103 meq/L 98-107 Normal (applies to non-numeric r esults) [facility] ([facility]) Anion Gap 5 meq/L 8-16 Below low normal [facility] ( [facility]) Carbon Dioxide Level 32 meq/L 21-32 Normal (applies to non-num jael results) [facility] ([facility]) Calcium Level 9.5 mg/dL 8.5-10.1 Normal (applies to non-numeric re sults) [facility] ([facility]) Ast/Sgot 20 U/L 7-37 Normal (applies to non-numeric resul ts) [facility] ([facility]) Alt/SGPT 32 U/L 12-78 Normal (applies to non-numeric resul ts) [facility] ([facility]) Alkaline Phosphatase 73 U/L 45-117 Normal (applies to non-num jael results) [facility] ([facility]) Bilirubin,Total 0.5 mg/dL 0.2-1.0 Normal (applies to non-numeric results) [facility] ([facility]) Albumin 4.0 GM/DL 3.2-5.2 Normal (applies to non-numeric resul ts) [facility] ([facility]) Total Protein 7.6 GM/DL 6.4-8.2 Normal (applies to non-numeric re sults) [facility] ([facility]) Albumin/Globulin Ratio 1.1 Normal (applies to non-n umeric results) [facility] ([facility]) ID Date Data Source [id number] 12/05/2020 03:19:00 PM EDT [facility] ([facility]) Name Value Range Interpretation Code Description Data Pat rce(s) Supporting Document(s) Red Blood Count 5.51 10 4.30-6.10 Normal (applies to non-numeric results) [facility] ([facility]) White Blood Count 5.9 10 4.0-10.0 Normal (applies to non-numeri c results) [facility] ([facility]) Hematocrit 47.9 % 42.0-52.0 Normal (applies to non-numeric resul ts) [facility] ([facility]) Hemoglobin 16.4 g/dL 13.5-17.5 Normal (applies to non-numeric resul ts) [facility] ([facility]) Mean Corpuscular Volume 86.9 fl 80.0-96.0 Normal ( applies to non-numeric results) [facility] ([facility]) Mean Corpuscular HGB Conc 34.2 g/dL 32.0-36.5 Normal (applies to non-numeric results) [facility] ([facility]) Mean Corpuscular Hemoglobin 29.8 pg 27.0-33.0 Norm al (applies to non-numeric results) [facility] ([facility]) Red Cell Distribution Width 12.5 % 11.5-14.5 Norm al (applies to non-numeric results) [facility] ([facility]) Platelet Count, Automated 218 10 150-450 Normal (applies to non-numeric results) [facility] ([facility]) Neutrophils % 63.3 % 36.0-66.0 Normal (applies to non-numeric re sults) [facility] ([facility]) Posey % 5.5 % 2.0-8.0 Normal (applies to non-numeric resul ts) [facility] ([facility]) Lymph % 26.2 % 24.0-44.0 Normal (applies to non-numeric resul ts) [facility] ([facility]) Eos % 4.1 % 0.0-3.0 Above high normal [facility] ([facility]) Immature Granulocyte % 0.2 % 0-3.0 Normal (applies to non-n umeric results) [facility] ([facility]) Baso % 0.7 % 0.0-1.0 Normal (applies to non-numeric resul ts) [facility] ([facility]) Nucleated Red Blood Cell % 0.0 % 0-0 Normal (applies to n on-numeric results) [facility] ([facility]) Neutrophils # 3.7 10 1.5-8.5 Normal (applies to non-numeric re sults) [facility] ([facility]) Lymph # 1.5 10 1.5-5.0 Normal (applies to non-numeric resul ts) [facility] ([facility]) Posey # 0.3 10 0.0-0.8 Normal (applies to non-numeric resul ts) [facility] ([facility]) Eos # 0.2 10 0.0-0.5 Normal (applies to non-numeric resul ts) [facility] ([facility]) Baso # 0.0 10 0.0-0.2 Normal (applies to non-numeric resul ts) [facility] ([facility]) ID Date Data Source [id number] 12/05/2020 11:45:00 AM EDT [facility] ([facility]) Name Value Range Interpretation Code Description Data Pat rce(s) Supporting Document(s) EKG Laboratory test result [facility] ([facility]) ID Date Data Source [id number] 10/31/2020 09:41:39 AM EDT [facility] Name Value Range Interpretation Code Description Data Pat rce(s) Supporting Document(s) Progress Note [facility] [id number] [file] [id number] ID Date Data Source [id number] 06/08/2020 11:10:00 AM EDT [facility] ([facility]) Name Value Range Interpretation Code Description Data Pat rce(s) Supporting Document(s) HLA-B27 related Ag [Presence] Laboratory test result Normal (applies to non- numeric results) [facility] ([facility]) HLA-B*27 Negative B27 allele interpretation for all loci based on IMGT/HLA database version 3.38 This test was developed and its performance characteristics determined by [facility]. It has not been cleared or approved by the Food and Drug Administration. [facility] CLIA ID Number [id number] . This test was performed using PCR (Polymerase Chain Reaction)/SSOP (Sequence Specific Oligonucleotide Probes) technique. SBT (Sequence Based Typing) and/or SSP (Sequence Specific Primers) may be used as supplemental methods when necessary. Please contact [facility] Customer Service at if you have any questions. . Director of [facility] Laboratory Dr Kurt Pichardo, PhD ID Date Data Source [id number] 06/08/2020 11:10:00 AM EDT [facility] ([facility]) Name Value Range Interpretation Code Description Data Pat rce(s) Supporting Document(s) Smiths Antibody Laboratory test result 0.0-0.9 Normal (a pplies to non-numeric results) [facility] ([facility]) TRAFFIC ADMINISTRATOR Antibody 0.2 AI 0.0-0.9 Normal (applies to non-numeric res ults) [facility] ([facility]) ID Date Data Source [id number] 06/08/2020 11:10:00 AM EDT [facility] ([facility]) Name Value Range Interpretation Code Description Data Pat rce(s) Supporting Document(s) Kassandra (Hep2) Laboratory test result Normal (applies to non-n umeric results) [facility] ([facility]) <content>Negative <1:80</content>
<content>Borderline 1:80</content>
<content>Positive >1:80</content>
<content>Performed at: [facility]</content>
<content>[address], [place] [id number]</content>
<content>Vehicle Delivery Worker: India Yeung MD, Phone: [phone]</content>
<content>Performed at: [address] [place] [address] [facility]</content>
<content>[address], [place] [id number]</content>
<content>Vehicle Delivery Worker: Kurt Pichardo PhD, Phone: [phone]</content>
<content>Performed at: [facility]</content>
<content>[address], [place] [id number]</content>
<content>Vehicle Delivery Worker: Ana Mahajan MD, Phone: [phone]</content>
<content></content> ID Date Data Source [id number] 06/08/2020 11:10:00 AM EDT [facility] ([facility]) Name Value Range Interpretation Code Description Data Pat rce(s) Supporting Document(s) Laboratory test finding (navigational concept) Laboratory test r esult Normal (applies to non-numeric results) [facility] ([facility]) ID Date Data Source [id number] 06/08/2020 11:10:00 AM EDT [facility] ([facility]) Name Value Range Interpretation Code Description Data Pat rce(s) Supporting Document(s) Rheumatoid factor [Units/volume] in Serum or Plasma Laboratory t est result Normal (applies to non-numeric results) [facility] ([facility]) C reactive protein [Mass/volume] in Serum or Plasma by High sensitivity method Laboratory test result 0.00-0.30 Normal (applies to non-numeric results) [facility] ([facility]) Erythrocyte sedimentation rate by Westergren method 1 mm/hr 0-15 Normal (applies to non-numeric results) [facility] ([facility]) Cyclic citrullinated peptide IgG Ab [Units/volume] in Serum or Plasma 7 units 0-19 Normal (applies to non-numeric results) [facility] ([facility]) <content>Negative <20</con tent>
<content>Weak positive 20 - 39</content>
<content>Moderate positive 40 - 59</content>
<content>Strong positive >59</content>
<content></content> Procedure Social History Code Duration Value Status Description Data Source(s ) Alcohol intake 12/21/2020 12:00:00 AM EDT Current drinker of al cohol (finding) completed Current drinker of alcohol (finding) [facility] Tobacco use and exposure 12/21/2020 12:00:00 AM EDT Current user co mpleted Current user [facility] Smoking 12/21/2020 12:00:00 AM EDT Former smoker completed Former smoker [facility] Smoking 12/05/2020 12:00:00 AM EDT Quit completed Quit [facility] ([facility]) Alcohol intake 10/23/2020 12:00:00 AM EST Current drinker of al cohol (finding) completed Current drinker of alcohol (finding) [facility] Vital Signs ID Date Data Source UNK Name Value Range Interpretation Code Description Data Source(s) Heart rate 104 /min 104 /min [facility] ([facility]) Respiratory rate 18 /min 18 /min [facility] ( [facility]) Oxygen saturation in Arterial blood by Pulse oximetry 98 % 98 % [facility] ([facility]) Body temperature 98.2 [degF] 98.2 [degF] [facility] ([facility]) Body weight 240.00 [lb_av] 240.00 [lb_av] [facility] ([facility]) Body height 72 [in_i] 72 [in_i] [facility]) 6'0" Body mass index (BMI) [Ratio] 32.5 kg/m2 32.5 k g/m2 [facility] ([facility]) Diastolic blood pressure 79 mm[Hg] 79 mm[Hg] [facility] ([facility]) Systolic blood pressure 124 mm[Hg] 124 mm[Hg] [facility] Body temperature 98.1 [degF] 98.1 [degF] [facility] ([facility]) Body weight 240.00 [lb_av] 240.00 [lb_av] [facility] ([facility]) Body height 72 [in_i] 72 [in_i] [facility] ([facility]) 6'0" Body mass index (BMI) [Ratio] 32.5 kg/m2 32.5 k g/m2 [facility] ([facility]) Diastolic blood pressure 76 mm[Hg] 76 mm[Hg] [facility] ([facility]) Heart rate 75 /min 75 /min [facility] ([facility]) Systolic blood pressure 115 mm[Hg] 115 mm[Hg] M [facility] ([facility]) Respiratory rate 16 /min 16 /min [facility] ( [facility]) Oxygen saturation in Arterial blood by Pulse oximetry 98 % 98 % [facility] ([facility]) Systolic blood pressure 150 mm[Hg] 150 mm[Hg] [facility]) Oxygen saturation in Arterial blood by Pulse oximetry 96 % 96 % [facility] ([facility]) [place] body weight 172 [lb_av] 172 [lb_av] [facility] ([facility]) Diastolic blood pressure 68 mm[Hg] 68 mm[Hg] [facility] ([facility]) Body height 71.8 [in_i] 71.8 [in_i] [facility] ([facility]) 5'11.80" Body weight 245.00 [lb_av] 245.00 [lb_av] [facility] ([facility]) Body mass index (BMI) [Ratio] 33.4 kg/m2 33.4 k g/m2 [facility] ([facility]) Heart rate 120 /min 120 /min [facility] ([facility]) Respiratory rate 20 /min 20 /min [facility] ( [facility]) Body temperature 98.7 [degF] 98.7 [degF] [facility] ([facility]) Oxygen saturation in Arterial blood by Pulse oximetry 98 % 98 % [facility] ([facility]) Respiratory rate 18 /min 18 /min [facility] ( [facility]) Body weight 235.00 [lb_av] 235.00 [lb_av] [facility] ([facility]) Body height 72 [in_i] 72 [in_i] [facility] 6'0" Heart rate 123 /min 123 /min [facility] ([facility]) Body temperature 97.1 [degF] 97.1 [degF] [facility] ([facility]) Body mass index (BMI) [Ratio] 31.9 kg/m2 31.9 k g/m2 [facility] ([facility]) Systolic blood pressure 128 mm[Hg] 128 mm[Hg] M [facility] ([facility]) Diastolic blood pressure 90 mm[Hg] 90 mm[Hg] [facility] ([facility]) Systolic blood pressure 142 mm[Hg] 142 mm[Hg] [facility] Diastolic blood pressure 90 mm[Hg] 90 mm[Hg] [facility] ([facility]) Body height 71.8 [in_i] 71.8 [in_i] [facility] ([facility]) 5'11.80" Body weight 226.38 [lb_av] 226.38 [lb_av] [facility] ([facility]) Body mass index (BMI) [Ratio] 30.9 kg/m2 30.9 k g/m2 [facility] ([facility]) Heart rate 97 /min 97 /min [facility] ([facility]) Respiratory rate 18 /min 18 /min [facility] ( [facility]) Body temperature 98.8 [degF] 98.8 [degF] [facility] ([facility]) Oxygen saturation in Arterial blood by Pulse oximetry 99 % 99 % [facility] ([facility]) [place] body weight 172 [lb_av] 172 [lb_av] [facility] ([facility]) Patient Treatment Plan of Care Planned Activity Planned Date Details Description Data Source (s) tizanidine 2 MG Oral Tablet 12/21/2020 11:19:49 AM [facility] Acetaminophen 325 MG Oral Tablet 12/21/2020 11:14:41 AM [facility] Oxycodone Hydrochloride 5 MG Oral Tablet 12/21/2020 11:14:41 AM [facility] Oxycodone Hydrochloride 5 MG Oral Tablet 12/21/2020 11:14:41 AM [facility] ondansetron (ZOFRAN) injection 4 mg 12/21/2020 11:14:41 AM [facility] ondansetron (ZOFRAN) injection 4 mg 12/21/2020 11:13:08 AM [facility] tizanidine 2 MG Oral Capsule 12/21/2020 12:00:00 AM [facility] Ondansetron 4 MG Disintegrating Oral Tablet 12/21/2020 12:00:00 AM [facility] Docusate Sodium 100 MG Oral Capsule 12/21/2020 12:00:00 AM [facility] Oxycodone Hydrochloride 5 MG Oral Tablet 12/21/2020 12:00:00 AM [facility] Acetaminophen 325 MG Oral Tablet 12/21/2020 12:00:00 AM [facility] Diclofenac Sodium 75 MG Delayed Release Oral Tablet 07/27/20 18 12:00:00 AM [facility] Omeprazole 20 MG Delayed Release Oral Capsule 07/27/2018 12:00:00 A M [facility]
--- NOTE | 2021-05-31 13:39 | REP ---
INDICATION: DYSPNEA/COUGH. COMPARISON: Frontal view of 09/13/2018 the latest prior TECHNIQUE: Portable FINDINGS: The technique utilized in obtaining the radiograph has magnified the cardiac silhouette and accentuated the interstitial markings. Cardiomediastinal silhouette is unchanged. There are no acute patchy parenchymal opacities. Minimal left CP angle blunting has developed on the left. There are no acute osseous abnormalities. IMPRESSION: Minimal left CP angle blunting otherwise no change. <Electronically signed by Justin Patel > 05/31/21 [id number]
[2021-05-31 14:13] LABS: BASO % 0.5 % (0.0-1.0); EOS % 0.5 % (0.0-3.0); HEMATOCRIT 47.8 % (42.0-52.0); HEMOGLOBIN 16.4 g/dl (13.5-17.5); LYMPH # 0.8 10^3/uL (1.5-5.0); LYMPH % 21.7 % (24.0-44.0); MEAN CORPUSCULAR HEMOGLOBIN 29.9 pg (27.0-33.0); MEAN CORPUSCULAR HGB CONC 34.3 g/dl (32.0-36.5); MEAN CORPUSCULAR VOLUME 87.2 fl (80.0-96.0); MONO # 0.3 10^3/uL (0.0-0.8); NEUTROPHILS # 2.6 10^3/uL (1.5-8.5); NEUTROPHILS % 68.8 % (36.0-66.0); PLATELET COUNT, AUTOMATED 167 10^3/uL (150-450); RED BLOOD COUNT 5.48 10^6/uL (4.30-6.10); WHITE BLOOD COUNT 3.7 10^3/uL (4.0-10.0)
[2021-05-31 14:23] LABS: INR 0.99; PROTHROMBIN TIME 13.5 SECONDS (12.7-14.5)
[2021-05-31 14:25] LABS: D-DIMER QUANT 429.71 ng/ml (<500)
[2021-05-31 14:45] LABS: ALBUMIN 3.4 GM/DL (3.2-5.2); ALT/SGPT 27 U/L (12-78); BILIRUBIN,DIRECT < 0.1 MG/DL (0.0-0.2); BILIRUBIN,TOTAL 0.5 MG/DL (0.2-1.0); BLOOD UREA NITROGEN 18 MG/DL (7-18); CALCIUM LEVEL 8.6 MG/DL (8.5-10.1); CARBON DIOXIDE LEVEL 31 MEQ/L (21-32); CHLORIDE LEVEL 103 MEQ/L (98-107); CK-MB VALUE MASS < 1.0 NG/ML (<3.6); CPK CREATINE PHOSPHOKINASE 37 U/L (39-308); CREATININE FOR GFR 1.16 MG/DL (0.70-1.30); GLOMERULAR FILTRATION RATE > 60.0 (>60); GLUCOSE, FASTING 105 MG/DL (70-100); NT-PRO BNP 89 PG/ML (<125); POTASSIUM SERUM 4.1 MEQ/L (3.5-5.1); SODIUM LEVEL 139 MEQ/L (136-145); TOTAL PROTEIN 7.3 GM/DL (6.4-8.2); TROPONIN I < 0.02 NG/ML (< 0.10)
[2021-05-31 15:05] LABS: RSV AMPLIFICATION NEGATIVE (NEGATIVE)
[2021-05-31 17:07] LABS: CK-MB VALUE MASS < 1.0 NG/ML (<3.6); CPK CREATINE PHOSPHOKINASE 37 U/L (39-308); TROPONIN I < 0.02 NG/ML (< 0.10)
[2021-05-31 20:38] VITALS: BP 129/80
--- NOTE | 2021-06-01 08:16 | ECGEPIP ---
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
--- NOTE | 2021-06-01 08:23 | ECGEPIP ---
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
== END 2021-05-31 20:42 | disposition home or self-care (01) ==
LOC: M ED 11:58
DX: R07.89 Other chest pain (principal); R06.02 Shortness of breath; U07.1 COVID-19; I10 Essential (primary) hypertension; Z79.899 Other long term (current) drug therapy; Z88.0 Allergy status to penicillin; Z88.1 Allergy status to other antibiotic agents

== ENCOUNTER 2021-06-01 11:42 | Outpatient (CLI) | payer BC ==
--- NOTE | 2021-05-31 20:36 | HPEPDOC ---
[facility] Medical History & Physical Date of Admission May 31, 2021 Date of Service: May 31, 2021 Attending Physician: ADAMA JOHNSON MD History and Physical CHIEF COMPLAINT: [41 y/o male c/o malaise, fatigue, cold sx, sob x8 days] HISTORY OF PRESENT ILLNESS: [This is a 41 y/o male with a pmh of htn and obesity who presents to our ED on 05/31 with a cc of worsening malaise, fatigue, fevers, cough, chills, myalgias, headaches x8 days. Patient states that his symptoms onset 8 days ago and he was subsequently tested + for COVID19 on 05/25, 6 days ago. Patient states that his symptoms have progressively gotten worse and is now noticeably short of breath and is experiencing chest pain when he is coughing. Patient decided to come to the ED for evaluation due to these symptoms. At the time of my exam, patient denies sputum production, hemoptysis, nausea, vomiting, diarrhea, abdominal pain, pedal edema, calf pain, syncope, pa resthesias.] PAST MEDICAL HISTORY: 1. [See HPI PAST SURGICAL HISTORY: 1. [Reviewed - none]. SOCIAL HISTORY: Tobacco use:[Denies] ETOH: [Occasional] Illicit drug use: [Denies] FAMILY HISTORY: reviewed - none pertinent ALLERGIES: Please see below. REVIEW OF SYSTEMS: CONSTITUTIONAL: [See HPI]. HEENT: [See HPI]. CARDIOVASCULAR: [Admits to chest pain when coughing. Denies palpitations]. RESPIRATORY: [See HPI]. GASTROINTESTINAL: [See HPI]. GENITOURINARY: [Denies dysuria]. SKIN: [Denies rash]. MUSCULOSKELETAL: [Denies acute joint/back pain]. NEUROLOGICAL: [Denies syncope, paresthesias]. ENDOCRINE: [Denies hx of DM]. HEMATOLOGIC/LYMPHATIC: [Denies hx of vte]. HOME MEDICATIONS: Please see below. PHYSICAL EXAMINATION: VITAL SIGNS: Please see below. GENERAL APPEARANCE: [41 y/o male resting comfortable in bed. He is alert and oriented to all questioning and does not appear to be in any acute distress]. HEENT: [No mass or lesion. EOMI. No scleral icterus. No conjunctival injection. Nares patent. oral mucosa moist]. CARDIOVASCULAR: [Regular rate, rhythm]. LUNGS: [Good air flow b/l]. ABDOMEN: [Soft, nontender]. MUSCULOSKELETAL: [No joint deformity noted]. EXTREMITIES: [No pedal edema. No overlying skin changes]. NEUROLOGICAL: [Speech clear. A+Ox3. No focal deficits]. PSYCHIATRIC: [Mood and affect appropriate]. LABORATORY DATA: See below. IMAGING: [CXR: FINDINGS: The technique utilized in obtaining the radiograph has magnified the cardiac silhouette and accentuated the interstitial markings. Cardiomediastinal silhouette is unchanged. There are no acute patchy parenchymal opacities. Minimal left CP angle blunting has developed on the left. There are no acute osseous abnormalities. IMPRESSION: Minimal left CP angle blunting otherwise no change.] MICROBIOLOGY: Please see below. ASSESSMENT: [This is a 41 y/o male with a pmh of htn and obesity who presents to our ED on 05/31 with a cc of worsening malaise, fatigue, fevers, cough, chills, myalgias, headaches x8 days. Patient tested + for COVID19 6 days ago]. . PLAN: 1. [COVID19 - Patient does not meet criteria for admission to the hospital at this time - no hypoxia, notable cxr changes - Patient at increased risk for poor outcome for covid19 infection d/t htn, obesity - Will move forward with monoclonal antibody infusion - consent form to be signed - Risks and benefits of monoclonal antibody infusion discussed with patient who verbalized understanding - Will order medications to be on hand in case of transfusion reaction - Pending patient tolerates infusion with no adverse effects, patient may go home after observation period following infusion - Regular diet while in house]. Home Medications Scheduled Lisinopril/Hydrochlorothiazide (Lisinopril-Hctz 20-12.5 mg Tab) 1 Each Tablet, 1 TAB PO DAILY Miscellaneous Medications Diclofenac Sodium (Diclofenac Sodium) 75 Mg Tab Potassium Chloride (Potassium Chloride) 10 Meq Capsule.er [Escitalopram] Allergies Coded Allergies: Penicillins (Verified Allergy, Unknown, unknown, 08/07/20) azithromycin (Verified Allergy, Unknown, unknown, 08/07/20) A-FIB/CHADSVASC A-FIB History Current/History of A-Fib/PAF?: No RAEANN GASTON May 31, 2021 20:36
[~2021-06-01 11:42] MED LIST changes: +ACETAMINOPHEN TAB 650MG DOSE (2X325MG) PO PRN; +ALBUTEROL 90 MCG/ACT 8GM HFA INHALER INH PRN; +ALBUTEROL SULFATE 2.5 MG/0.5 ML INH NEB SOLN INH PRN; +EPINEPHrine INJ 1 MG/ML 1ML AMP IM PRN; +ESCITALOPRAM; +NS 1,000 ML IV SCH; +POTA10CA32; +diphenhydrAMINE 50MG/ML VIAL (J1200) IV PRN; +methylPREDNISolone 125MG 2ML VIAL IV PRN
[2021-06-01 12:00] VITALS: BP 144/87
[2021-06-01] MEDS ORDERED: BAMLANIVIMAB 700 MG, ETESEVIMAB 1,400 MG in NS 250 ML IV ONE (12:00)
[2021-06-01 12:43] VITALS: BP 115/74
[2021-06-01 13:13] VITALS: BP 130/81
[2021-06-01 13:53] VITALS: BP 135/75
[2021-06-01 14:53] VITALS: BP 132/82
== END 2021-06-01 14:53 | disposition home or self-care (01) ==
LOC: M OPCLI4 11:42
PROVIDERS: ATTEND Internal Medicine
DX: U07.1 COVID-19 (principal); Z88.0 Allergy status to penicillin; Z88.1 Allergy status to other antibiotic agents

== ENCOUNTER → 2021-12-27 | Outpatient (CLI) | payer BC, OTHER ==
[~2021-12-27] MED LIST changes: -ACETAMINOPHEN TAB 650MG DOSE (2X325MG) PO PRN; -ALBUTEROL 90 MCG/ACT 8GM HFA INHALER INH PRN; -ALBUTEROL SULFATE 2.5 MG/0.5 ML INH NEB SOLN INH PRN; -DICL1GEL TD; +DICL3GEL2 TD; -EPINEPHrine INJ 1 MG/ML 1ML AMP IM PRN; -LISI10TA15; +LISI10TA24; -NS 1,000 ML IV SCH; -diphenhydrAMINE 50MG/ML VIAL (J1200) IV PRN; -methylPREDNISolone 125MG 2ML VIAL IV PRN
== END ==
LOC: M SLEEP 20:00
PROVIDERS: ATTEND Physician Assistant
DX: G47.33 Obstructive sleep apnea (adult) (pediatric) (principal)

== ENCOUNTER → 2022-03-03 | Outpatient (CLI) | payer OTHER | LOC: M SLEEP 20:00 | PROVIDERS: ATTEND Physician Assistant | DX: G47.33 Obstructive sleep apnea (adult) (pediatric) (principal) ==

== ENCOUNTER → 2022-05-24 | Outpatient (REF) | payer OTHER ==
[2022-05-24 12:40] LABS: BASO # 0.1 10^3/uL (0.0-0.2); BASO % 0.8 % (0.0-1.0); EOS # 0.3 10^3/uL (0.0-0.5); HEMOGLOBIN 16.1 g/dl (13.5-17.5); LYMPH # 2.1 10^3/uL (1.5-5.0); LYMPH % 34.1 % (24.0-44.0); MEAN CORPUSCULAR HEMOGLOBIN 30.4 pg (27.0-33.0); MEAN CORPUSCULAR HGB CONC 33.5 g/dl (32.0-36.5); MEAN CORPUSCULAR VOLUME 90.6 fl (80.0-96.0); MONO # 0.4 10^3/uL (0.0-0.8); MONO % 6.1 % (2.0-8.0); NEUTROPHILS # 3.4 10^3/uL (1.5-8.5); NEUTROPHILS % 54.7 % (36.0-66.0); PLATELET COUNT, AUTOMATED 223 10^3/uL (150-450); WHITE BLOOD COUNT 6.3 10^3/uL (4.0-10.0)
[2022-05-24 13:25] LABS: ALBUMIN 3.9 GM/DL (3.2-5.2); ALT/SGPT 39 U/L (12-78); BILIRUBIN,TOTAL 0.4 MG/DL (0.2-1.0); BLOOD UREA NITROGEN 16 MG/DL (7-18); CALCIUM LEVEL 9.1 MG/DL (8.5-10.1); CARBON DIOXIDE LEVEL 33 MEQ/L (21-32); CHLORIDE LEVEL 102 MEQ/L (98-107); CHOLESTEROL LEVEL 216 MG/DL (<200); CHOLESTEROL RISK RATIO 4.408 (<5); CREATININE FOR GFR 0.93 MG/DL (0.70-1.30); FREE T4 1.26 NG/DL (0.76-1.46); GLOMERULAR FILTRATION RATE > 60.0 (>60); GLUCOSE, FASTING 83 MG/DL (70-100); HDL CHOLESTEROL 49 MG/DL (>40); LDL CHOLESTEROL 127 MG/DL (<100); NON-HDL-C 167 MG/DL; POTASSIUM SERUM 4.6 MEQ/L (3.5-5.1); SODIUM LEVEL 137 MEQ/L (136-145); TOTAL PROTEIN 7.4 GM/DL (6.4-8.2); TRIGLYCERIDES LEVEL 199 MG/DL (<150)
== END ==
LOC: M LAB REF 12:17
PROVIDERS: ATTEND Family Medicine
DX: I10 Essential (primary) hypertension (principal); Z13.0 Encounter for screening for diseases of the blood and blood-forming organs and certain disorders involving the immune mechanism; Z13.29 Encounter for screening for other suspected endocrine disorder

== ENCOUNTER → 2022-06-19 | Outpatient (CLI) | payer OTHER ==
[2022-06-19 13:10] LABS: BASO % 0.6 % (0.0-1.0); EOS # 0.4 10^3/uL (0.0-0.5); EOS % 5.6 % (0.0-3.0); HEMOGLOBIN 16.1 g/dl (13.5-17.5); LYMPH # 1.6 10^3/uL (1.5-5.0); LYMPH % 23.2 % (24.0-44.0); MEAN CORPUSCULAR HEMOGLOBIN 30.6 pg (27.0-33.0); MEAN CORPUSCULAR VOLUME 87.3 fl (80.0-96.0); MONO # 0.6 10^3/uL (0.0-0.8); MONO % 8.4 % (2.0-8.0); NEUTROPHILS # 4.2 10^3/uL (1.5-8.5); NEUTROPHILS % 61.9 % (36.0-66.0); PLATELET COUNT, AUTOMATED 218 10^3/uL (150-450); RED BLOOD COUNT 5.27 10^6/uL (4.30-6.10); WHITE BLOOD COUNT 6.8 10^3/uL (4.0-10.0)
[2022-06-19 13:33] LABS: ALBUMIN 3.9 GM/DL (3.2-5.2); ALT/SGPT 56 U/L (12-78); BILIRUBIN,TOTAL 0.5 MG/DL (0.2-1.0); BLOOD UREA NITROGEN 16 MG/DL (7-18); CALCIUM LEVEL 9.6 MG/DL (8.5-10.1); CARBON DIOXIDE LEVEL 29 MEQ/L (21-32); CHLORIDE LEVEL 104 MEQ/L (98-107); GLOMERULAR FILTRATION RATE > 60.0 (>60); GLUCOSE, FASTING 113 MG/DL (70-100); POTASSIUM SERUM 4.1 MEQ/L (3.5-5.1); SODIUM LEVEL 137 MEQ/L (136-145); TOTAL PROTEIN 7.5 GM/DL (6.4-8.2)
== END ==
LOC: M RAD 12:26
PROVIDERS: ATTEND Nurse Practitioner Adult Health
DX: J18.9 Pneumonia, unspecified organism (principal)

== ENCOUNTER 2022-08-22 09:43 | Emergency (ER) | payer OTHER ==
[~2022-08-22] VITALS: Ht 182.9 cm; Wt 122.6 kg
[~2022-08-22 09:43] MED LIST changes: -POTA10CA32; +POTA10CA33
[2022-08-22] MEDS ORDERED: LIDO5DIS41 TOP (12:36)
[2022-08-22] MEDS ORDERED: SOMA350T PO (12:36)
[2022-08-22] MEDS ORDERED: LIDOCAINE 5% (LIDODERM) PATCH TD ONE (12:40)
[2022-08-22 12:59] VITALS: BP 143/89
== END 2022-08-22 13:08 | disposition home or self-care (01) ==
LOC: M ED 09:43
DX: S46.911A Strain of unspecified muscle, fascia and tendon at shoulder and upper arm level, right arm, initial encounter (principal); X50.9XXA Other and unspecified overexertion or strenuous movements or postures, initial encounter; Y92.89 Other specified places as the place of occurrence of the external cause; Z88.0 Allergy status to penicillin; Z79.899 Other long term (current) drug therapy

== ENCOUNTER → 2022-11-12 | Outpatient (CLI) | payer OTHER ==
[~2022-11-12] MED LIST changes: +GASTROGRAFIN SOLUTION 30ML As Ordered ONE; +ISOVUE-370 76% 100ML VIAL As Ordered ONE; +LIDO5DIS41 TOP; +SOMA350T PO
[2022-11-12 16:20] LABS: BASO % 0.5 % (0.0-1.0); EOS # 0.2 10^3/uL (0.0-0.5); EOS % 2.7 % (0.0-3.0); HEMATOCRIT 47.7 % (42.0-52.0); HEMOGLOBIN 16.9 g/dl (13.5-17.5); LYMPH # 2.2 10^3/uL (1.5-5.0); MEAN CORPUSCULAR HEMOGLOBIN 30.2 pg (27.0-33.0); MEAN CORPUSCULAR HGB CONC 35.4 g/dl (32.0-36.5); MEAN CORPUSCULAR VOLUME 85.2 fl (80.0-96.0); MONO # 0.5 10^3/uL (0.0-0.8); MONO % 5.8 % (2.0-8.0); NEUTROPHILS # 5.6 10^3/uL (1.5-8.5); NEUTROPHILS % 64.8 % (36.0-66.0); PLATELET COUNT, AUTOMATED 249 10^3/uL (150-450); WHITE BLOOD COUNT 8.6 10^3/uL (4.0-10.0)
[2022-11-12 16:29] LABS: LIPASE 43 U/L (12-53)
[2022-11-12 16:31] LABS: AMYLASE 76 U/L (30-118)
[2022-11-12 16:40] LABS: ALBUMIN 4.1 G/DL (3.2-5.2); ALKALINE PHOSPHATASE 94 U/L (46-116); ALT/SGPT 38 U/L (7.0-40); AST/SGOT 27 U/L (<34); BILIRUBIN,TOTAL 0.4 MG/DL (0.3-1.2); BLOOD UREA NITROGEN 22 MG/DL (9-23); CARBON DIOXIDE LEVEL 30 MMOL/L (20-31); CHLORIDE LEVEL 102 MMOL/L (98-107); CREATININE FOR GFR 0.82 MG/DL (0.70-1.30); GLOMERULAR FILTRATION RATE > 60.0 (>60); GLUCOSE, FASTING 114 MG/DL (60-100); POTASSIUM SERUM 3.9 MMOL/L (3.5-5.1); SODIUM LEVEL 138 MMOL/L (136-145)
== END ==
LOC: M RAD 15:14
PROVIDERS: ATTEND Family Medicine
DX: R10.31 Right lower quadrant pain (principal)
CPT/HCPCS: 36415; 74177; 80053; 82150; 83690; 85025; Q9963; Q9967

== ENCOUNTER → 2022-11-14 | Outpatient (CLI) | payer OTHER ==
[~2022-11-14] MED LIST changes: -GASTROGRAFIN SOLUTION 30ML As Ordered ONE; -ISOVUE-370 76% 100ML VIAL As Ordered ONE
== END ==
LOC: M RAD 09:45
PROVIDERS: ATTEND Family Medicine
DX: R10.84 Generalized abdominal pain (principal)

== ENCOUNTER 2023-03-10 21:08 | Emergency (ER) | payer OTHER ==
[~2023-03-10] VITALS: Ht 180.3 cm; Wt 115.9 kg
[~2023-03-10 21:08] MED LIST changes: -POTA10CA33; +POTA10CA60
[2023-03-10 22:46] LABS: BASO # 0.1 10^3/uL (0.0-0.2); BASO % 0.8 % (0.0-1.0); EOS # 0.3 10^3/uL (0.0-0.5); EOS % 3.5 % (0.0-3.0); HEMATOCRIT 44.8 % (42.0-52.0); HEMOGLOBIN 15.5 g/dl (13.5-17.5); LYMPH # 2.2 10^3/uL (1.5-5.0); LYMPH % 30.1 % (24.0-44.0); MEAN CORPUSCULAR HGB CONC 34.6 g/dl (32.0-36.5); MEAN CORPUSCULAR VOLUME 86.7 fl (80.0-96.0); MONO # 0.5 10^3/uL (0.0-0.8); NEUTROPHILS # 4.2 10^3/uL (1.5-8.5); NEUTROPHILS % 58.3 % (36.0-66.0); PLATELET COUNT, AUTOMATED 231 10^3/uL (150-450); RED BLOOD COUNT 5.17 10^6/uL (4.30-6.10); WHITE BLOOD COUNT 7.2 10^3/uL (4.0-10.0)
[2023-03-10 22:47] LABS: BLOOD UREA NITROGEN 21 MG/DL (9-23); CALCIUM LEVEL 9.4 MG/DL (8.5-10.1); CARBON DIOXIDE LEVEL 29 MMOL/L (20-31); CHLORIDE LEVEL 104 MMOL/L (98-107); CK-MB VALUE MASS < 1.0 NG/ML (<3.6); CPK CREATINE PHOSPHOKINASE 55 U/L (46-171); CREATININE FOR GFR 0.87 MG/DL (0.70-1.30); GLOMERULAR FILTRATION RATE > 60.0 (>60); GLUCOSE, FASTING 109 MG/DL (60-100); MB/CK RELATIVE INDEX 1.81 (< OR =4); POTASSIUM SERUM 4.4 MMOL/L (3.5-5.1); SODIUM LEVEL 138 MMOL/L (136-145)
[2023-03-10 23:59] LABS: CK-MB VALUE MASS < 1.0 NG/ML (<3.6)
[2023-03-11 00:01] LABS: CPK CREATINE PHOSPHOKINASE 52 U/L (46-171); MB/CK RELATIVE INDEX 1.92 (< OR =4)
[2023-03-11 00:53] VITALS: TEMP 98.8
[2023-03-11] MEDS ORDERED: ISOVUE-370 76% 100ML VIAL As Ordered ONE (01:16)
[2023-03-11 01:27] LABS: CK-MB VALUE MASS < 1.0 NG/ML (<3.6)
[2023-03-11 01:29] LABS: CPK CREATINE PHOSPHOKINASE 48 U/L (46-171); MB/CK RELATIVE INDEX 2.08 (< OR =4)
[2023-03-11] MEDS ORDERED: ONDANSETRON 4MG 2ML VIAL IV ONE (01:35)
[2023-03-11 02:30] VITALS: BP 124/80; O2SAT 97
== END 2023-03-11 03:29 | disposition home or self-care (01) ==
LOC: M ED 21:08
DX: R07.89 Other chest pain (principal); H53.19 Other subjective visual disturbances; H43.399 Other vitreous opacities, unspecified eye; I10 Essential (primary) hypertension; F32.A Depression, unspecified; Z88.0 Allergy status to penicillin; Z88.1 Allergy status to other antibiotic agents; Z79.899 Other long term (current) drug therapy
CPT/HCPCS: 36415; 71045; 71275; 80048; 82550; 82553; 84484; 85025; 93005; 96374; 99284; J2405; Q9967

== ENCOUNTER → 2023-03-21 | Outpatient (CLI) | payer OTHER ==
[~2023-03-21] MED LIST changes: +PERC5TAB12 PO
== END ==
LOC: M PLAIMG 15:14
PROVIDERS: ATTEND Family Medicine
DX: G43.109 Migraine with aura, not intractable, without status migrainosus (principal)

== ENCOUNTER 2023-03-23 19:14 | Emergency (ER) | payer OTHER ==
[~2023-03-23] VITALS: Ht 180.3 cm; Wt 120.0 kg
[~2023-03-23 19:14] MED LIST changes: -PERC5TAB12 PO
[2023-03-23 21:18] VITALS: BP 172/88; TEMP 98
[2023-03-23] MEDS ORDERED: PERCOCET 5MG/325MG TAB PO ONE (21:40)
[2023-03-23 21:49] VITALS: O2SAT 98
[2023-03-23] MEDS ORDERED: PERC5TAB12 PO (22:00)
== END 2023-03-23 22:44 | disposition home or self-care (01) ==
LOC: M ED 19:14
DX: S52.125A Nondisplaced fracture of head of left radius, initial encounter for closed fracture (principal); S80.211A Abrasion, right knee, initial encounter; W01.0XXA Fall on same level from slipping, tripping and stumbling without subsequent striking against object, initial encounter; Y92.520 Airport as the place of occurrence of the external cause; Y93.01 Activity, walking, marching and hiking; Y99.8 Other external cause status; I10 Essential (primary) hypertension; F32.A Depression, unspecified; Z88.0 Allergy status to penicillin; Z88.1 Allergy status to other antibiotic agents; Z79.899 Other long term (current) drug therapy

== ENCOUNTER → 2023-03-24 | Outpatient (CLI) | payer OTHER ==
[~2023-03-24] MED LIST changes: +PERC5TAB12 PO
== END ==
LOC: M SOG 10:52
PROVIDERS: ATTEND Orthopaedic Surgery
DX: M25.532 Pain in left wrist (principal); M79.632 Pain in left forearm

== ENCOUNTER → 2023-04-03 | Outpatient (CLI) | payer OTHER | LOC: M SOG 08:18 | PROVIDERS: ATTEND Orthopaedic Surgery | DX: M25.522 Pain in left elbow (principal) ==

== ENCOUNTER → 2023-06-10 | Outpatient (REF) | payer OTHER | LOC: M LABDRWAD 12:47 | PROVIDERS: ATTEND Physician Assistant Medical | DX: K76.0 Fatty (change of) liver, not elsewhere classified (principal); R10.32 Left lower quadrant pain; R19.7 Diarrhea, unspecified; R10.13 Epigastric pain ==

== ENCOUNTER → 2023-10-07 | Outpatient (CLI) | payer OTHER | LOC: M OUTALCOH 07:19 | PROVIDERS: ATTEND Psychiatry & Neurology Psychiatry | DX: F10.10 Alcohol abuse, uncomplicated (principal) ==

== ENCOUNTER → 2023-12-10 | Outpatient (REF) | payer OTHER | LOC: M LAB REF 16:50 | PROVIDERS: ATTEND Family Medicine | DX: K52.3 Indeterminate colitis (principal) ==

== ENCOUNTER → 2024-09-20 | Outpatient (REF) | payer OTHER ==
[~2024-09-20] MED LIST changes: -POTA10CA60; +POTA10CA70
== END ==
LOC: M LABWUC 13:38
PROVIDERS: ATTEND Family Medicine
DX: K52.3 Indeterminate colitis (principal)

== ENCOUNTER → 2024-10-14 | Outpatient (CLI) | payer OTHER | LOC: M WUC 08:25 | PROVIDERS: ATTEND Student in an Organized Health Care Education/Training Program | DX: M79.645 Pain in left finger(s) (principal); M19.042 Primary osteoarthritis, left hand ==

== ENCOUNTER → 2025-05-04 | Outpatient (CLI) | payer OTHER ==
[~2025-05-04] MED LIST changes: +DICL3GEL13 TD; -DICL3GEL2 TD; +LIDO1ADH93 TOP; -LIDO5DIS41 TOP
== END ==
LOC: M WUC 14:25
PROVIDERS: ATTEND Nurse Practitioner Family
DX: M25.512 Pain in left shoulder (principal)